=== PATIENT | female | born 1945 | race Caucasian/White ===

== ENCOUNTER → 2017-03-13 | Outpatient (REF) | payer MEDICARE ==
[~2017-03-13] MED LIST: ALBU17IN2 INH; AMLO5TAB2 PO; AUGM875T27 PO; AVEL1TAB PO; CALCCHW12 OR; COZA50TA PO; IMOD2TAB16 PO; Imodium PO; LASI40TA; LISI20TA5; LOSA50TA20 PO; MEGA40SU PO; NORV5TAB PO; PRED20TAB PO; PROA1AER IN; PROA1AER INH; TYLE325T5 PO; TYLE650T30 PO; TYLENOL OTC; VICO5TAB; [UNRECOGNIZED DRUG - REMARK] INH; advair diskus INH; immodium PO; robitussin ac PO
[2017-03-13 12:51] LABS: BASO % 0.9 % (0.0-1.0); EOS # 0.4 K/mm3 (0.0-0.50); EOS % 6.4 % (0.0-3.0); LARGE UNSTAINED CELL # 0.1 K/mm3 (0.0-0.4); LARGE UNSTAINED CELL % 2.2 % (0.0-4.0); LYMPH # 1.6 K/mm3 (1.5-4.5); LYMPH % 23.9 % (24.0-44.0); MEAN CORPUSCULAR HEMOGLOBIN 29.1 pg (27.0-33.0); MEAN CORPUSCULAR HGB CONC 31.2 g/dl (32.0-36.5); MEAN CORPUSCULAR VOLUME 93.4 fl (80.0-96.0); MONO # 0.4 K/mm3 (0.0-0.8); MONO % 6.9 % (0.0-5.0); NEUTROPHILS # 3.7 K/mm3 (1.8-7.7); NEUTROPHILS % 59.8 % (36.0-66.0); PLATELET COUNT, AUTOMATED 237 k/mm3 (150-450); RED CELL DISTRIBUTION WIDTH 15.2 % (11.5-14.5); WHITE BLOOD COUNT 6.2 K/mm3 (4.0-10.0)
[2017-03-13 13:14] LABS: ALBUMIN 3.5 GM/DL (3.2-5.2); ALBUMIN/GLOBULIN RATIO 1.09 (1.00-1.93); ALKALINE PHOSPHATASE 90 U/L (45-117); ALT/SGPT 13 U/L (12-78); ANION GAP 8 MEQ/L (8-16); AST/SGOT 19 U/L (15-37); BILIRUBIN,TOTAL 0.5 MG/DL (0.2-1.0); BLOOD UREA NITROGEN 24 MG/DL (7-18); CALCIUM LEVEL 8.8 MG/DL (8.8-10.2); CARBON DIOXIDE LEVEL 28 MEQ/L (21-32); CHLORIDE LEVEL 102 MEQ/L (98-107); GLOMERULAR FILTRATION RATE > 60.0 (>39); GLUCOSE, FASTING 88 MG/DL (83-110); MAGNESIUM LEVEL 2.1 MG/DL (1.8-2.4); PHOSPHORUS LEVEL 3.9 MG/DL (2.5-4.9); POTASSIUM SERUM 4.6 MEQ/L (3.5-5.1); SODIUM LEVEL 138 MEQ/L (136-145); TOTAL PROTEIN 6.7 GM/DL (6.4-8.2)
== END ==
LOC: M SFHCPLAZ 08:54
PROVIDERS: ATTEND Nurse Practitioner Adult Health
DX: C18.9 Malignant neoplasm of colon, unspecified (principal); E55.9 Vitamin D deficiency, unspecified
CPT/HCPCS: 36415; 80053; 82306; 83735; 84100; 85025; G0463

== ENCOUNTER → 2017-05-01 | Outpatient (REF) | payer MEDICARE ==
[~2017-05-01] MED LIST changes: +ALEV220T26 PO; -AUGM875T27 PO; +AUGM875T28 PO; -AVEL1TAB PO; +AVEL1TAB3 PO; +LOMO2.5T PO; +METO1TAB32 PO; -PROA1AER IN; -PROA1AER INH; +PROAAER10 IN; +PROAAER10 INH; +REGORAFENIB PO; +STIV40TA PO; +TYLE325C PO
[2017-05-01 17:17] LABS: BASO % 0.7 % (0.0-1.0); EOS # 0.3 K/mm3 (0.0-0.50); EOS % 5.4 % (0.0-3.0); LARGE UNSTAINED CELL # 0.2 K/mm3 (0.0-0.4); LARGE UNSTAINED CELL % 2.7 % (0.0-4.0); LYMPH # 1.6 K/mm3 (1.5-4.5); LYMPH % 27.3 % (24.0-44.0); MEAN CORPUSCULAR HEMOGLOBIN 30.4 pg (27.0-33.0); MEAN CORPUSCULAR HGB CONC 33.1 g/dl (32.0-36.5); MEAN CORPUSCULAR VOLUME 91.7 fl (80.0-96.0); MONO # 0.4 K/mm3 (0.0-0.8); MONO % 6.3 % (0.0-5.0); NEUTROPHILS # 3.4 K/mm3 (1.8-7.7); NEUTROPHILS % 57.6 % (36.0-66.0); PLATELET COUNT, AUTOMATED 221 k/mm3 (150-450); RED CELL DISTRIBUTION WIDTH 14.2 % (11.5-14.5); WHITE BLOOD COUNT 5.9 K/mm3 (4.0-10.0)
[2017-05-01 18:04] LABS: ALBUMIN 3.9 GM/DL (3.2-5.2); ALBUMIN/GLOBULIN RATIO 1.39 (1.00-1.93); ALKALINE PHOSPHATASE 112 U/L (45-117); ALT/SGPT 14 U/L (12-78); ANION GAP 6 MEQ/L (8-16); AST/SGOT 20 U/L (15-37); BILIRUBIN,TOTAL 0.9 MG/DL (0.2-1.0); BLOOD UREA NITROGEN 19 MG/DL (7-18); CALCIUM LEVEL 8.2 MG/DL (8.8-10.2); CARBON DIOXIDE LEVEL 28 MEQ/L (21-32); CHLORIDE LEVEL 104 MEQ/L (98-107); CREATININE FOR GFR 0.67 MG/DL (0.55-1.02); GLOMERULAR FILTRATION RATE > 60.0 (>39); GLUCOSE, FASTING 70 MG/DL (83-110); POTASSIUM SERUM 4.8 MEQ/L (3.5-5.1); SODIUM LEVEL 138 MEQ/L (136-145); TOTAL PROTEIN 6.7 GM/DL (6.4-8.2)
[2017-05-04 09:23] LABS: CARCINOEMBRYONIC ANTIGEN 17.5 NG/ML (<2.5)
== END ==
LOC: M LAB REF 16:31
PROVIDERS: ATTEND Internal Medicine Hematology & Oncology
DX: C18.9 Malignant neoplasm of colon, unspecified (principal); C78.00 Secondary malignant neoplasm of unspecified lung; R19.7 Diarrhea, unspecified; E86.0 Dehydration; E55.9 Vitamin D deficiency, unspecified

== ENCOUNTER → 2017-05-08 | Outpatient (REF) | payer MEDICARE ==
[2017-05-08 20:58] LABS: BASO % 0.8 % (0.0-1.0); EOS # 0.2 K/mm3 (0.0-0.50); EOS % 4.3 % (0.0-3.0); LARGE UNSTAINED CELL # 0.1 K/mm3 (0.0-0.4); LARGE UNSTAINED CELL % 1.4 % (0.0-4.0); LYMPH # 1.8 K/mm3 (1.5-4.5); LYMPH % 32.6 % (24.0-44.0); MEAN CORPUSCULAR HEMOGLOBIN 30.7 pg (27.0-33.0); MEAN CORPUSCULAR HGB CONC 33.6 g/dl (32.0-36.5); MEAN CORPUSCULAR VOLUME 91.3 fl (80.0-96.0); MONO # 0.4 K/mm3 (0.0-0.8); MONO % 6.7 % (0.0-5.0); NEUTROPHILS # 2.8 K/mm3 (1.8-7.7); NEUTROPHILS % 54.1 % (36.0-66.0); PLATELET COUNT, AUTOMATED 190 k/mm3 (150-450); RED CELL DISTRIBUTION WIDTH 14.5 % (11.5-14.5); WHITE BLOOD COUNT 5.2 K/mm3 (4.0-10.0)
== END ==
LOC: M LAB REF 19:08
PROVIDERS: ATTEND Internal Medicine Hematology & Oncology
DX: R00.2 Palpitations (principal)

== ENCOUNTER → 2017-05-15 | Outpatient (REF) | payer MEDICARE ==
[~2017-05-15] MED LIST changes: -ALEV220T26 PO; +AUGM875T27 PO; -AUGM875T28 PO; +AVEL1TAB PO; -AVEL1TAB3 PO; -LOMO2.5T PO; -METO1TAB32 PO; +PROA1AER IN; +PROA1AER INH; -PROAAER10 IN; -PROAAER10 INH; -REGORAFENIB PO; -STIV40TA PO; -TYLE325C PO
[2017-05-15 19:47] LABS: BASO # 0.1 K/mm3 (0.0-0.2); BASO % 1.1 % (0.0-1.0); EOS # 0.3 K/mm3 (0.0-0.50); EOS % 5.8 % (0.0-3.0); LARGE UNSTAINED CELL # 0.1 K/mm3 (0.0-0.4); LARGE UNSTAINED CELL % 1.8 % (0.0-4.0); LYMPH # 1.6 K/mm3 (1.5-4.5); LYMPH % 31.2 % (24.0-44.0); MEAN CORPUSCULAR HEMOGLOBIN 30.2 pg (27.0-33.0); MEAN CORPUSCULAR HGB CONC 33.1 g/dl (32.0-36.5); MEAN CORPUSCULAR VOLUME 91.3 fl (80.0-96.0); MONO # 0.4 K/mm3 (0.0-0.8); NEUTROPHILS # 2.7 K/mm3 (1.8-7.7); NEUTROPHILS % 53.1 % (36.0-66.0); PLATELET COUNT, AUTOMATED 166 k/mm3 (150-450); RED CELL DISTRIBUTION WIDTH 14.7 % (11.5-14.5)
== END ==
LOC: M LABDRWCV 09:54
PROVIDERS: ATTEND Internal Medicine Hematology & Oncology
DX: C18.9 Malignant neoplasm of colon, unspecified (principal)

== ENCOUNTER 2017-07-07 11:55 | Inpatient (IN) | payer MEDICARE ==
[~2017-07-07] VITALS: Ht 165.1 cm; Wt 60.2 kg
[~2017-07-07 11:55] MED LIST changes: -AUGM875T27 PO; +AUGM875T28 PO; -AVEL1TAB PO; +AVEL1TAB3 PO; -PROA1AER IN; -PROA1AER INH; +PROAAER10 IN; +PROAAER10 INH
[2017-07-07] MEDS ORDERED: REGORAFENIB PO (12:15)
[2017-07-07] MEDS ORDERED: NS 1,000 ML IV ONE (13:00)
[2017-07-07] MEDS ORDERED: ONDANSETRON 4MG/2ML VIAL (J2405) IV ONE (13:00)
[2017-07-07 13:21] LABS: MEAN CORPUSCULAR HEMOGLOBIN 29.5 pg (27.0-33.0); MEAN CORPUSCULAR HGB CONC 32.9 g/dl (32.0-36.5); MEAN CORPUSCULAR VOLUME 89.5 fl (80.0-96.0); RED CELL DISTRIBUTION WIDTH 14.8 % (11.5-14.5); WHITE BLOOD COUNT 14.4 K/mm3 (4.0-10.0)
[2017-07-07 13:39] LABS: ANION GAP 11 MEQ/L (8-16); BLOOD UREA NITROGEN 31 MG/DL (7-18); CALCIUM LEVEL 8.5 MG/DL (8.8-10.2); CARBON DIOXIDE LEVEL 26 MEQ/L (21-32); CHLORIDE LEVEL 94 MEQ/L (98-107); GLOMERULAR FILTRATION RATE 23.4 (>39); GLUCOSE, FASTING 48 MG/DL (83-110); POTASSIUM SERUM 4.1 MEQ/L (3.5-5.1); SODIUM LEVEL 131 MEQ/L (136-145)
[2017-07-07 13:59] LABS: BASOPHILS 1 % (0-4); EOSINOPHILS 1 % (0-5)
[2017-07-07 14:00] LABS: ANISOCYTOSIS 1+
--- NOTE | 2017-07-07 14:44 | REP ---
Portable chest x-ray: Single AP view. History: Dizziness. Evaluate for CHF. Comparison study 02/28/2016. The patient is status post left upper lobectomy. Today's chest x-ray demonstrates a new area of and fairly dense consolidation in the left apex. This would be the superior segment of the left upper lobe. This is compatible with pneumonia or conceivably recurrent mass lesion. There is a new nodular opacity in the right inferior perihilar region measuring 2.2 cm in greatest diameter. Another nodule density 1.5 cm in diameter is visible in the right upper lung zone. These are new findings. The pleural angles are sharp. Heart is not enlarged. A right-sided Sbkqyi-Z-Zonq catheter is seen. Impression: 1. Large new dense area of consolidation in the left apex in the superior segment of the remaining left lower lobe. 2. New pulmonary nodules in the right lung. Question recurrent malignancy and pneumonia. Signed by Frantz Spain MD 07/07/2017 02:50 P
[2017-07-07] MEDS ORDERED: DEXTROSE 50% 50 ML SYRINGE IV STA (14:56)
[2017-07-07] MEDS ORDERED: AZITHROMYCIN INJ 500 MG, VIAL MATE ADAPTER 1 EACH in D5W 250 ML IV ONE (15:15)
[2017-07-07] MEDS ORDERED: cefTRIAXone SOD 1 GM in D5W MINI-BAG PLUS 50 ML IV ONE (15:15)
[2017-07-07] MEDS ORDERED: NS 1,000 ML IV SCH (15:18)
[2017-07-07] MEDS ORDERED: EMLA CREAM 5GM (LIDOCAINE/PRILOCAINE) TOP ONE (15:45)
[2017-07-07] MEDS ORDERED: AMLO5TAB2 PO (16:02)
[2017-07-07] MEDS ORDERED: IMOD2TAB16 PO (16:02)
[2017-07-07] MEDS ORDERED: ALEV220T26 PO (16:02)
[2017-07-07] MEDS ORDERED: PROAAER10 INH (16:02)
[2017-07-07] MEDS ORDERED: STIV40TA PO (16:02)
[2017-07-07] MEDS ORDERED: LOMO2.5T PO (16:02)
[2017-07-07] MEDS ORDERED: BISACODYL 5 MG TAB PO PRN (16:30)
[2017-07-07] MEDS ORDERED: ONDANSETRON 4 MG TAB (S0181) PO PRN (16:30)
[2017-07-07] MEDS ORDERED: IPRATROPIUM 0.5MG/ALBUTEROL 2.5MG INH SOL UD 3ML (DUONEB)(J7620) NEB PRN (16:30)
[2017-07-07] MEDS ORDERED: LOPERAMIDE 2 MG CAP PO PRN (16:45)
[2017-07-07] MEDS ORDERED: ALBUTEROL 90 MCG/ACT 8GM HFA INHALER INH PRN (16:45)
[2017-07-07] MEDS ORDERED: SODIUM CHLORIDE 0.9% 1000 ML IV ONE (17:15)
[2017-07-07] MEDS: D5W/0.9% SODIUM CHLORIDE 1,000 ML IV SCH (17:30)
--- NOTE | 2017-07-07 20:21 | HPEPDOC ---
General Date of Admission Primary Care Physician: Hortensia Yadav R.N., Minh Attending Physician: YAN YEUNG MD Chief Complaint The patient is a 72-year-old female admitted with a reason for visit of General Weakness. Source: Patient, Family History of Present Illness CHIEF COMPLAINT: dizziness HISTORY OF PRESENT ILLNESS: Ms. Meek is a 72 yo F with a PMH of metastatic colon cancer with L lower lobectomy (as stated per patient and patient's family), COPD not on home O2, hypertensive cardiovascular disease, anorexia secondary to poor oral intake due to colon cancer, community acquired pneumonia in February 2014, who presented to the [facility] ED today for a 4 day hx of progressively worsening dizziness, weakness, anorexia, and decreased mobility. States since Sunday, she has been feeling bad, has not been eating, has been slightly dizzy, and spitting up food after 1 - 1/2 hours later initially, but now has been spitting up food right after eating. She could not walk today. Is not eating or drinking. Has only eaten a couple of crackers and 2 crackers yesterday. Today, she has been c/o head spinning dizziness and not vocalizing properly. She also states she was not able to move up out of her bed today. Daughter states that yesterday she was able to at least sit up in a chair. Daughter also states that patient has not been able to talk properly due to being so dehydrated and having nothing in her mouth. Daughter also states that patient was having hot and cold sweating all the time today and hallucinating that there was mold on the wall that wasn't there. Also is usually weak in her R leg due to bad arthritis in that leg. Also admits to bad R hip and she cannot have hip replacement in that hip due to needing to be off of chemotherapy for 10 days prior to surgery. Already has had L hip replacement. Has generalized weakness but not unilateral weakness. Denies blurred vision, headache, nausea, cough, dysuria, hematuria, urinary frequency, chest pain, abdominal pain, bruising/bleeding anywhere. Admits to SOB when tries to get up and move too fast. Denies falling or hitting head. Yesterday, had controlled movements with immodium: loose and shaped bowel movement that was very short. Has not moved her bowels today. Of note, patient states she began her chemotherapy pill (stivarga) cycle this month on June 21 and takes 3 pills a day. She took 3 pills last night. PAST MEDICAL HISTORY: Metastatic colon cancer with L lower lobectomy (as stated per patient and patient's family)--though Dr. Tori Diehl's H&P from 2015 states TY lobectomy Colon Cancer was diagnosed 2008 COPD not on home O2 Hypertensive cardiovascular disease Anorexia secondary to poor oral intake due to colon cancer Community acquired pneumonia in February 2014 Hx of hypokalemia Leukopenia secondary to chemotherapy Hx of thrombocytopenia Arthritis of the knees and fingers Hx of Dehydration Hx of Diverticulosis Occasional hx of Anemia Dry Patches on Bottom and Palm of Hand PAST SURGICAL HISTORY/HOSPITALIZATIONS: L Hip Replacement in 2005 L "lower" lobectomy 08/19/2012 Hx of Wobbuw-O-Podd Insertion x 2: now, has 2nd port in Right Colectomy 02/26/2009 Appendectomy at age 9 Hx of colonoscopy in 2010: found to have tubular adenoma Hospitalized January 2017 at [facility] in [place] for Dehydration MEDICATIONS: Please see below. ALLERGIES: NKDA SOCIAL HISTORY: Smoked 1 1/2 packs x 50 years: quit 2008 EtOH use: was social drinker and quit 2008 No illicit drug use Has 1 cat which is immunized Lives at home with her Has 2 children: 1 son and 1 daughter Healthcare proxy: daughter Nidhi Does not have MOLST FAMILY HISTORY: Mother: from peritonitis Father: October 1999 of CHF, had tachycardia hx Maternal Grandfather: had unknown cancer Oldest Sister: "bad back" Older sister: thyroidectomy, HTN Youngest sister: unknown medical hx CODE STATUS: FULL CODE STATUS Would like her daughter Nidhi who is her healthcare proxy to make decisions for her when she will not be able to make decisions for herself REVIEW OF SYSTEMS: All ROS are negative except for that which is stated above in HPI. PHYSICAL EXAMINATION: Please see VS and PE below. Afebrile, (+) Orthostatics, satting 90s on room air LABORATORY DATA: Remarkable for WBC 14.4, Hgb 11, Hct 33.3, MCH 29.5, RBC 3.72, RDW 14.8, platelets 215, neutrophils 38, lymphocytes 2, 1+ anisocytosis, sodium 131. BUN 31 and Cr 2.20, GFR 23.4, fasting glucose 48, CK-MB 6.3, troponin I <0.02, CRP 40.60. MICROBIOLOGY: Blood cx x 2 pending Sputum cx pending ELECTROCARDIOGRAM: Sinus rhythm with frequent supraventricular premature complexes, ventricular Rate: 67 bpm, IL interval 165 ms, QRS duration 87 ms, QTc of 428 ms. Prior EKG from 11/29/2014 showed sinus rhythm, Nonspecific ST-T wave abnormality with rate 67, IL interval 133, QRS duration of 80, and QTc of 414. RADIOLOGY: CXR Single AP view: large new dense area of consolidation in the L apex in the superior segment of the remaining LLL. New pulmonary nodules in the R lung. Question recurrent malignancy and pneumonia. ASSESSMENT: Ms. Meek is a 72 yo F with a PMH of metastatic colon cancer with L lower lobectomy (as stated per patient and patient's family), COPD not on home O2, hypertensive cardiovascular disease, anorexia secondary to poor oral intake due to colon cancer, community acquired pneumonia in February 2014, who presented to the [facility] ED today for a 4 day hx of progressively worsening dizziness, weakness, anorexia, and decreased mobility. She was found to have leukocytosis, hypoglycemia, acute kidney injury, and a large new dense area of consolidation in the L apex in the superior segment of the remaining LLL. Her orthostatic vital signs were positive. She is being admitted for Community Acquired Pneumonia, leukocytosis, acute kidney injury, hypoglycemia, anorexia, weakness, and decreased mobility, and orthostatic hypotension. PLAN: Community Acquired Pneumonia: have begun rocephin and azithromycin. Ordered O2 therapy orders to keep O2 saturations above 88%. Ordered incentive spirometer. Tylenol PRN pain/fever. Sputum cx pending. CT chest without contrast ordered. Influenza A&B rapid antigen ordered. Leukocytosis: on azithromycin and rocephin. Blood cx x 2 pending and sputum cx pending. Lactic acid pending. MRSA screen pending. May want to consider changing antibiotics if patient not responding well. Patient afebrile at this time. Will hold patient's chemotherapy drug stivarga for now due to infection and immunocompromising patient more to other infections. Will monitor CBCs daily. Acute Kidney Injury: D5NS @ 100 mLs/hr. Urine Cr and Na, serum osmolality, and urine osmolality ordered to calculate FeNa for evaluating etiology of CARINA. Suspect most likely secondary to anorexia and dehydration. Will monitor daily BMPs for renal function. Orthostatic Hypotension: D5NS @ 100 mLs/hr. Monitor vitals q4h. Hypoglycemia: D5NS @ 100 mLs/hr. On soft diet. Aspiration precautions. Have ordered q6h fingersticks. Placed nursing order to call physician with fingerstick result for any need for adjustments with therapy. Will monitor BMPs daily. Chronic Medical Problem List: Metastatic colon cancer with L lower lobectomy (as stated per patient and patient's family)--though Dr. Tori Diehl's H&P from 2015 states TY lobectomy Colon Cancer was diagnosed 2009 COPD not on home O2 Hypertensive cardiovascular disease Anorexia secondary to poor oral intake due to colon cancer Community acquired pneumonia in February 2014 Hx of hypokalemia Leukopenia secondary to chemotherapy Hx of thrombocytopenia Arthritis of the knees and fingers Hx of Dehydration Hx of Diverticulosis Occasional hx of Anemia Dry Patches on Bottom and Palm of Hand Continue home medications for the conditions listed that apply above. Have held loperamide, lomotil, and stivarga at this time. DVT ppx: SC heparin FULL CODE STATUS Immunizations as per protocol I have both independently examined this patient as well as reviewed the dictated note. I have discussed in detail with the resident the findings and plan of treatment as documented in the residents note. I will continue to follow the patient and offer further guidance to the patients care as necessary during this hospital stay. Home Medications Scheduled (Stivarga) 40 Mg Tab, 120 MG PO DAILY, (Reported) TAKE FOR 3 WEEKS ON, 1 WEEK OFF. HAS ABOUT 1.5 WEEKS LEFT ON. Amlodipine Besylate (Amlodipine Besylate) 5 Mg Tab, 5 MG PO QHS, (Reported) Metoprolol Succinate (Metoprolol Succinate ER) 25 Mg Tab, 25 MG PO DAILY Scheduled PRN (Tylenol) 325 Mg Cap, 325 MG PO Q6HP PRN for PAIN Albuterol Sulfate (Proair Hfa) 108 Mcg/Act Aer, 2 PUFF INH Q4H PRN for SHORTNESS OF BREATH, (Reported) Loperamide Hcl (Imodium A-D) 2 Mg Tab, 2 MG PO PRN PRN for DIARRHEA, (Reported) Allergies Coded Allergies: No Known Allergies (Verified , 03/05/06) Physical Examination General Exam: Positive: Alert, Cooperative, No Acute Distress, Other (Fragile and weak elderly female answering questions appropriately.) Eye Exam: Positive: Conjunctiva & lids normal, EOMI, Sclera icteric ENT Exam: Positive: Atraumatic, Tongue Midline, Other ENT (dry mucous membranes.), Negative: Pharyngeal Edema Neck Exam: Positive: Supple, Negative: JVD, thyromegaly, Lymphadenopathy Chest Exam: Positive: Wheezing (+end expiratory wheezing throughout middle and lower lung sam bilaterally and mild wheezing in upper lung sam), Negative: Rales Heart Exam: Positive: Rate Normal, Normal S1, Normal S2, Other (with occasional PVCs), Negative: Murmurs Telemetry: Positive: Sinus, PVCs Abdomen Exam: Positive: BS Hypoactive, Soft, Negative: Tenderness, Hepatospenomegaly Extremity Exam: Positive: Normal pulses, Negative: Clubbing, Cyanosis, Edema Skin Exam: Negative: Rash, Breakdown Neuro Exam: Positive: Normal Speech, Sensation Intact, Other (CN 2-12 intact bilaterally. +4/5 RLE muscle strength with extension against resistance) Psych Exam: Positive: Mental status NL, Memory Intact, Oriented x 3, Other ( flat affect) Vital Signs Vital Signs Date Time Temp Pulse Resp B/P (MAP) Pulse Ox O2 Delivery O2 Flow Rate FiO2 07/07/17 15:17 97.2 92 20 117/56 (76) 95 Room Air Laboratory Data Labs 24H Laboratory Tests 2 07/07/17 13:07: Neutrophils 88H, Lymphocytes (Manual) 2L, Monocytes (Manual) 8, Eosinophils ( Manual) 1, Basophils (Manual) 1, Platelet Estimate NORMAL, Anisocytosis 1+, Anion Gap 11, Glomerular Filtration Rate 23.4L, Blood Urea Nitrogen 31H, Creatinine 2.20H, Sodium Level 131L, Potassium Level 4.1, Chloride Level 94L, Carbon Dioxide Level 26, Calcium Level 8.5L, Total Creatine Kinase 144, Creatine Kinase MB 6.3H, Creatine Kinase MB Relative Index 4.37H, Troponin I < 0.02 CBC/BMP Laboratory Tests 07/07/17 13:07 Calcium Level 8.5 L, Total Creatine Kinase 144 Plan / VTE VTE Prophylaxis Ordered?: Yes (SC heparin) LETY COMER OGME-1 Jul 07, 2017 15:29 YAN YEUNG MD Jul 23, 2017 15:15
[2017-07-07] MEDS ORDERED: amLODIPine 5 MG TAB PO SCH (21:00)
[2017-07-07 21:05] VITALS: BP 116/53
[2017-07-07 21:29] LABS: ALBUMIN 2.5 GM/DL (3.2-5.2); ALBUMIN/GLOBULIN RATIO 0.69 (1.00-1.93); BILIRUBIN,TOTAL 1.6 MG/DL (0.2-1.0); MAGNESIUM LEVEL 2.4 MG/DL (1.8-2.4); TOTAL PROTEIN 6.1 GM/DL (6.4-8.2)
[2017-07-07] MEDS: PIPERACILLIN/TAZOBACTAM SOD 4.5 GM in D5W MINI-BAG PLUS 50 ML IV SCH (21:39)
[2017-07-07] MEDS: HEPARIN SOD (PORCINE) 5000 UNITS/ML VIAL SC SCH (21:45)
[2017-07-08] VITALS (9 sets, daily range): BP systolic 88–112; BP diastolic 51–62
[2017-07-08] MEDS: PIPERACILLIN/TAZOBACTAM SOD 4.5 GM in D5W MINI-BAG PLUS 50 ML IV SCH ×3 (04:17→21:24)
[2017-07-08 05:13] LABS: BASO % 0.2 % (0.0-1.0); EOS # 0.4 K/mm3 (0.0-0.50); EOS % 3.6 % (0.0-3.0); LARGE UNSTAINED CELL # 0.1 K/mm3 (0.0-0.4); LARGE UNSTAINED CELL % 1.3 % (0.0-4.0); LYMPH # 0.5 K/mm3 (1.5-4.5); LYMPH % 4.2 % (24.0-44.0); MEAN CORPUSCULAR HEMOGLOBIN 30.4 pg (27.0-33.0); MEAN CORPUSCULAR HGB CONC 33.6 g/dl (32.0-36.5); MEAN CORPUSCULAR VOLUME 90.3 fl (80.0-96.0); MONO # 0.4 K/mm3 (0.0-0.8); NEUTROPHILS # 9.6 K/mm3 (1.8-7.7); NEUTROPHILS % 86.7 % (36.0-66.0); PLATELET COUNT, AUTOMATED 202 k/mm3 (150-450); RED CELL DISTRIBUTION WIDTH 14.6 % (11.5-14.5)
[2017-07-08] MEDS: HEPARIN SOD (PORCINE) 5000 UNITS/ML VIAL SC SCH ×3 (05:53→21:25)
[2017-07-08 06:32] LABS: ALBUMIN/GLOBULIN RATIO 0.67 (1.00-1.93); BILIRUBIN,TOTAL 0.8 MG/DL (0.2-1.0); CALCIUM LEVEL 7.1 MG/DL (8.8-10.2); CREATININE FOR GFR 1.69 MG/DL (0.55-1.02); GLOMERULAR FILTRATION RATE 31.8 (>39); MAGNESIUM LEVEL 2.2 MG/DL (1.8-2.4); POTASSIUM SERUM 4.1 MEQ/L (3.5-5.1)
[2017-07-08] MEDS: VANCOMYCIN HCL 1,000 MG, VIAL MATE ADAPTER 1 EACH in D5W 250 ML IV SCH ×2 (08:42→21:24)
[2017-07-08] MEDS: D5W/0.9% SODIUM CHLORIDE 1,000 ML IV SCH ×2 (08:42→21:24)
--- NOTE | 2017-07-08 10:44 | PHACANCOPD ---
PHARMACY VANCOMYCIN DOSING Pt Demographics Demographics Patient Age:72 , Weight:58.600 , Gender: female Adjusted Body Weight Date: 07/08/17, Adjusted Body Weight: [na] Kg Events Past 24 Hours Events Past 24 Hours: YES: Change in CrCl, NO: Dialysis, Diuretic Therapy, Fever, Elevation in WBC, Pending Diagnostics , Pending Procedures, Other Vancomycin Vancomycin indication: HCAP Vancomycin Target Ranges: 15-20 mcg/ml Vancomycin Load Y/N: No Load Dose Date Time Vancomycin Load Dose: Date: Time: Vancomycin Dose Date: 07/08/17. Current Vancomycin Dose: [1g IV Q12H @08] Intermittent Dosing?: No Labs Labs Item Value Date Time White Blood Count 14.4 K/mm3 H 07/07/17 1307 White Blood Count 11.0 K/mm3 H 07/08/17 0437 Creatinine 2.20 MG/DL H 07/07/17 1307 Creatinine 1.69 MG/DL H 07/08/17 0437 C-Reactive Protein, Quantitative 40.60 MG/DL H 07/07/17 1307 Micro Microbiology 07/07/17 Blood Culture, Received Pending 07/07/17 Blood Culture, Received Pending 07/08/17 Influenza Virus Type A Antigen - Final, Complete 07/08/17 Influenza Virus Type B Antigen - Final, Complete 07/07/17 MRSA Screen, Received Pending 07/07/17 Gram Stain - Final, Resulted 07/07/17 Sputum Culture, Resulted Pending Creatinine Clearance Date:07/08/17. Creatinine Clearance: [~29 ml/min]. Assessment and Plan Maintaining Current Dose?: Yes Reason for dose change: No Dose Change Pharmacist Note Pharmacist Note Date: 07/08/17. Pharmacist note: pt has been started on vancomycin for HCAP, possible post obstructive pneumonia. Her PMHx is significant for metastatic colon cancer. She does not have a Hx of MRSA and she was last on vancomycin at our facility in Nov 2014. I will resume similar dosing of vancomycin 1g IV q12h. Her SCr is currently elevated but improving, baseline SCr is ~0.7 mg/dl. We will continue to monitor and order a trough as necessary. Oli Larios Pharm.D. Jul 08, 2017 10:44
--- NOTE | 2017-07-08 11:26 | REP ---
CT chest without contrast: History: Pneumonia. Status post lobectomy. Comparison is made with portable chest x-ray from earlier on the same date. Comparison chest CT study is from July 02, 2012. The patient has a history of colon carcinoma and lung carcinoma and is status post left upper lobectomy. CT findings: There are multiple noncalcified pulmonary nodules scattered in the right lower lobe and right upper lobe compatible with hematogenous metastasis. The largest nodule is an irregularly marginated nodule in the right lower lobe, which measures 2.0 cm in greatest diameter. The nodules in the right upper lobe include a 1.2 cm nodule. These are new when compared to the 2012 prior study. The left upper lobe has been removed. In the superior segment of the remaining left lower lobe in the apex of the left chest there is dense consolidation heterogeneous with necrotic areas. There is upward retraction of the left hilus. There is some perihilar fullness with perihilar bronchial narrowing. Some or all of the infiltrate could be a postobstructive. There is some peripheral consolidation extending to the base on the left. There is a nodule in the left lower lobe measuring 8 mm. There are superior mediastinal lymph nodes. The largest of these is in the left superior mediastinum measuring 2.1 cm in greatest diameter. There are calcified bilateral adrenal masses. The left adrenal mass measures 5.1 cm in greatest diameter and the right measures 5.8 cm in greatest diameter. No liver mass lesion is visible. The visualized upper abdominal structures are otherwise unremarkable. Bone window settings show diffuse osteoporosis. No bony destructive lesion is appreciated. Impression: Metastatic pattern of pulmonary nodules bilaterally. The left hilar fullness and possibly postobstructive infiltrate in the left upper lung zone are suggestive of recurrent malignancy. Large calcified bilateral adrenal masses are seen consistent with metastasis. The calcified pattern in the adrenal metastases is atypical for lung primary. Some colon metastases may be calcific. Signed by Frantz Spain MD 07/08/2017 01:08 P
--- NOTE | 2017-07-08 15:34 | IPNPDOC ---
Text Note Date of Service The patient was seen on 07/08/17. NOTE Subjective: Patient is a 72 year old female with a PMHx of Colon CA (Dx 2008, Stage IV, s/p Surgery, on chemotherapy), L upper lobectomy 2/2 metastasis, COPD (not O2 dependent), HTN, Anemia, Cachexia, and Arthritis who presented to the ER with dizziness, SOB, cough and fever worsening over 3-4 days. She was found to have a fever in the ER and imaging revealed a left upper lobe infiltrate consistent with pneumonia. Patient was admitted to PCU under hospitalist service for HCAP. Patient was seen and examined at the bedside. Her family was present at bedside. She notes weakness some SOB, mild cough. No chest pain or palpitations. Objective: Vitals (See below) General: Lying in bed, no acute distress, comfortable, AAOx3 HEENT: NC, AT CVS: RRR, +S1S2 Lungs: Poor inspiratory effort, + crackles / decreased lung sounds at left upper lung field Abdomen: Soft, ND, NT, +BSx4 Extremities: - Edema, - Calf tenderness Assessment and plan: Dyspnea and fever - likely 2/2 pneumonia - likely 2/2 post-obstructive pneumonia with underlying malignancy (metastatic lesion) - Presented with SOB, cough, fevers - Physical with decreased lung sounds / crackles - c/w supplemental oxygen via nasal cannula - Blood pressure has been on the lower side of normal - Leukocytosis improving; No lactic acidosis - Blood cultures 07/07: currently negative - CT Chest 07/08: Metastatic pattern of pulmonary nodules b/l, left hilar fullness and possibly post-obstructive infiltrate in L upper lung zone ( recurrent malignancy) - c/w IV fluid hydration with D5 and NS - Started Vancomycin (Day #1), c/w Zosyn (Day #2) Dizziness - likely 2/2 orthostatic hypotension - Repeat orthostatic vital signs negative - c/w IV fluid hydration Acute kidney injury - likely 2/2 pre-renal etiology, possibly intra-renal etiology - No history of CKD - Cr on admission of 2.20; has been trending down - c/w IV fluid hydration Hypoglycemia - likely 2/2 poor oral intake - c/w glucose checks - c/w Dextrose based fluids - Encourage oral intake - c/w Aspiration precautions Colon CA - Dx 2008 - Stage IV - s/p Surgery - Currently on chemotherapy; will hold medications at this time - Follows with Dr. León in [place]; case discussed with him - Advised that there has been a recent CT chest that was consistent with pulmonary nodules bilaterally, however indicated that post-obstructive pneumonia 2/2 to lesion in left upper lung field is likely new L upper lobectomy 2/2 metastasis COPD, Chronic - No evidence of exacerbation at this time - Not O2 dependent - c/w Duoneb PRN HTN - BP on lower limits of normal - will discontinue amlodipine for now Normocytic anemia - likely 2/2 chemotherapy - no evidence of bleeding - will follow Cachexia - Encourage PO entake - c/w Dextrose based fluids Arthritis - c/w Tylenol PRN DVT prophylaxis - c/w Heparin VS,Fishbone, I+O VS, Fishbone, I+O Laboratory Tests 07/08/17 04:37 Red Blood Count 3.45 L, Mean Corpuscular Volume 90.3, Mean Corpuscular Hemoglobin 30.4, Mean Corpuscular Hemoglobin Concent 33.6, Red Cell Distribution Width 14.6 H, Neutrophils (%) (Auto) 86.7 H, Lymphocytes (%) (Auto ) 4.2 L, Monocytes (%) (Auto) 4.0, Eosinophils (%) (Auto) 3.6 H, Basophils (%) ( Auto) 0.2, Neutrophils # (Auto) 9.6 H, Lymphocytes # (Auto) 0.5 L, Monocytes # ( Auto) 0.4, Eosinophils # (Auto) 0.4, Basophils # (Auto) 0.0, Calcium Level 7.1 # L, Aspartate Amino Transf (AST/SGOT) 27, Alanine Aminotransferase (ALT/SGPT) 8 L , Alkaline Phosphatase 106, Total Bilirubin 0.8, Total Protein 5.0 L, Albumin 2.0 L Vital Signs Date Time Temp Pulse Resp B/P (MAP) Pulse Ox O2 Delivery O2 Flow Rate FiO2 07/08/17 14:12 112/56 (74) 07/08/17 12:00 97.8 68 18 99 Nasal Cannula 2.0 I&O- Last 24 Hours up to 6 AM 07/08/17 06:00 Intake Total 1300 ml Output Total 100 ml Balance 1200 ml KARON PRINGLE MD Jul 08, 2017 15:34
[2017-07-08] MEDS ORDERED: cefTRIAXone SOD 2 GM in D5W MINI-BAG PLUS 50 ML IV SCH (17:00)
[2017-07-08] MEDS ORDERED: AZITHROMYCIN INJ 500 MG, VIAL MATE ADAPTER 1 EACH in D5W 250 ML IV SCH (18:00)
--- NOTE | 2017-07-08 21:29 | ECGEPIP ---
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
[2017-07-09] MEDS ORDERED: METOPROLOL 5 MG/5 ML VIAL IV SCH
[2017-07-09] MEDS ORDERED: METOPROLOL 5 MG/5 ML VIAL IV ONE (02:30)
[2017-07-09 03:55] VITALS: BP 97/59
[2017-07-09 04:55] LABS: BASO % 0.2 % (0.0-1.0); EOS # 0.5 K/mm3 (0.0-0.50); EOS % 4.3 % (0.0-3.0); LARGE UNSTAINED CELL # 0.2 K/mm3 (0.0-0.4); LARGE UNSTAINED CELL % 1.5 % (0.0-4.0); LYMPH # 0.7 K/mm3 (1.5-4.5); LYMPH % 4.5 % (24.0-44.0); MEAN CORPUSCULAR HEMOGLOBIN 29.6 pg (27.0-33.0); MEAN CORPUSCULAR HGB CONC 32.6 g/dl (32.0-36.5); MONO # 0.7 K/mm3 (0.0-0.8); MONO % 5.7 % (0.0-5.0); NEUTROPHILS # 9.9 K/mm3 (1.8-7.7); NEUTROPHILS % 83.8 % (36.0-66.0); PLATELET COUNT, AUTOMATED 168 k/mm3 (150-450); RED CELL DISTRIBUTION WIDTH 14.9 % (11.5-14.5); WHITE BLOOD COUNT 11.8 K/mm3 (4.0-10.0)
[2017-07-09] MEDS: PIPERACILLIN/TAZOBACTAM SOD 4.5 GM in D5W MINI-BAG PLUS 50 ML IV SCH ×3 (05:28→22:05)
[2017-07-09] MEDS: HEPARIN SOD (PORCINE) 5000 UNITS/ML VIAL SC SCH ×3 (05:28→22:06)
[2017-07-09 05:29] LABS: ALBUMIN 1.8 GM/DL (3.2-5.2); ALBUMIN/GLOBULIN RATIO 0.6 (1.00-1.93); BILIRUBIN,TOTAL 0.7 MG/DL (0.2-1.0); CALCIUM LEVEL 7.3 MG/DL (8.8-10.2); CREATININE FOR GFR 1.4 MG/DL (0.55-1.02); GLOMERULAR FILTRATION RATE 39.5 (>39); MAGNESIUM LEVEL 1.9 MG/DL (1.8-2.4); POTASSIUM SERUM 3.7 MEQ/L (3.5-5.1); TOTAL PROTEIN 4.8 GM/DL (6.4-8.2)
[2017-07-09] MEDS: D5W/0.9% SODIUM CHLORIDE 1,000 ML IV SCH ×3 (06:37→13:15)
[2017-07-09 08:00] VITALS: BP 96/52
--- NOTE | 2017-07-09 08:06 | ECGEPIP ---
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
[2017-07-09] MEDS: VANCOMYCIN HCL 1,000 MG, VIAL MATE ADAPTER 1 EACH in D5W 250 ML IV SCH ×2 (08:26→20:27)
[2017-07-09] MEDS ORDERED: MAG SULF 1GM/100ML (MAG RUN) 1 GM in APPROPRIATE DILUENT 1 EA IV ONE (09:30)
[2017-07-09 10:46] LABS: PHOSPHORUS LEVEL 2.1 MG/DL (2.5-4.9)
[2017-07-09 12:00] VITALS: BP 100/60
[2017-07-09] MEDS ORDERED: SODIUM PHOSPHATE INJ 30 MMOL in D5W 500 ML IV ONE (14:00)
--- NOTE | 2017-07-09 15:14 | IPNPDOC ---
Text Note Date of Service The patient was seen on 07/09/17. NOTE Subjective: Patient is a 72 year old female with a PMHx of Colon CA (Dx 2009, Stage IV, s/p Surgery, on chemotherapy), L upper lobectomy 2/2 metastasis, COPD (not O2 dependent), HTN, Anemia, Cachexia, and Arthritis who presented to the ER with dizziness, SOB, cough and fever worsening over 3-4 days. She was found to have a fever in the ER and imaging revealed a left upper lobe infiltrate consistent with pneumonia. Patient was admitted to PCU under hospitalist service for HCAP. Patient was seen and examined at the bedside. She notes that she is feeling tired, her breathing has not changed significant. She notes her cough has been slightly worse. No reported fevers. Objective: Vitals (See below) General: Lying in bed, no acute distress, comfortable, AAOx3 HEENT: NC, AT CVS: RRR, +S1S2 Lungs: Poor inspiratory effort, + crackles / decreased lung sounds at left upper lung field Abdomen: Soft, ND, NT, +BSx4 Extremities: - Edema, - Calf tenderness Assessment and plan: Dyspnea and fever - likely 2/2 pneumonia - likely 2/2 post-obstructive pneumonia with underlying malignancy (metastatic lesion) - Presented with SOB, cough, fevers - Physical with decreased lung sounds / crackles - c/w supplemental oxygen via nasal cannula - Blood pressure has been on the lower side of normal - Leukocytosis improving; No lactic acidosis - Blood cultures 07/07: currently negative - CT Chest 07/08: Metastatic pattern of pulmonary nodules b/l, left hilar fullness and possibly post-obstructive infiltrate in L upper lung zone ( recurrent malignancy) - c/w IV fluid hydration with D5 and NS - c/w Vancomycin (Day #2), c/w Zosyn (Day #3) - Case discussed with Pulmonary (Dr. Phillips); will be on consult - will provide evaluation of possible post-obstructive pneumonia Frequent PVCs and Paroxysmal atrial fibrillation - Patient has not had any complaints while this has happened - Patient was noted to have pauses this morning of 4 seconds - Telemetry noted to have atrial fibrillation and episodes of 13 PVCs - EKG from admission in sinus rhythm with multiple PVCs - Discussed case with Dr. Severino (Cardiology); will be on consult; advised to observe for now and consider beta blockers if BP allows and HR becomes uncontrolled, otherwise Amiodarone may be a feasible option Dizziness - likely 2/2 orthostatic hypotension - Repeat orthostatic vital signs negative - c/w IV fluid hydration Acute kidney injury - likely 2/2 pre-renal etiology, possibly intra-renal etiology - No history of CKD - Cr on admission of 2.20; has been continue to trend down - c/w IV fluid hydration s/p Hyponatremia, mild - likely 2/2 dehydration / poor oral intake - resolved after IV fluid hydration Hypoglycemia - likely 2/2 poor oral intake - c/w glucose checks - c/w Dextrose based fluids - Encourage oral intake - c/w Aspiration precautions Colon CA - Dx 2008 - Stage IV - s/p Surgery - Currently on chemotherapy; will hold medications at this time - Follows with Dr. León in [place]; case discussed with him - Advised that there has been a recent CT chest that was consistent with pulmonary nodules bilaterally, however indicated that post-obstructive pneumonia 2/2 to lesion in left upper lung field is likely new, adrenal gland metastasis bilaterally L upper lobectomy 2/2 metastasis COPD, Chronic - No evidence of exacerbation at this time - Not O2 dependent - c/w Duoneb PRN HTN - BP on lower limits of normal - will discontinue amlodipine for now Normocytic anemia - likely 2/2 chemotherapy - no evidence of bleeding - will follow Cachexia - Encourage PO entake - c/w Dextrose based fluids Arthritis - c/w Tylenol PRN DVT prophylaxis - c/w Heparin VS,Fishbone, I+O VS, Fishbone, I+O Laboratory Tests 07/09/17 04:35 Red Blood Count 3.35 L, Mean Corpuscular Volume 91.0, Mean Corpuscular Hemoglobin 29.6, Mean Corpuscular Hemoglobin Concent 32.6, Red Cell Distribution Width 14.9 H, Neutrophils (%) (Auto) 83.8 H, Lymphocytes (%) (Auto ) 4.5 L, Monocytes (%) (Auto) 5.7 H, Eosinophils (%) (Auto) 4.3 H, Basophils (% ) (Auto) 0.2, Neutrophils # (Auto) 9.9 H, Lymphocytes # (Auto) 0.7 L, Monocytes # (Auto) 0.7, Eosinophils # (Auto) 0.5, Basophils # (Auto) 0.0, Calcium Level 7.3 L, Aspartate Amino Transf (AST/SGOT) 22, Alanine Aminotransferase (ALT/SGPT ) 7 L, Alkaline Phosphatase 118 H, Total Bilirubin 0.7, Total Protein 4.8 L, Albumin 1.8 L Vital Signs Date Time Temp Pulse Resp B/P (MAP) Pulse Ox O2 Delivery O2 Flow Rate FiO2 07/09/17 12:00 97.6 73 18 100/60 (73) 98 Room Air 07/09/17 08:04 2.0 I&O- Last 24 Hours up to 6 AM 07/09/17 06:00 Intake Total 1490 ml Output Total 800 ml Balance 690 ml KARON PRINGLE MD Jul 09, 2017 15:13
[2017-07-09 16:00] VITALS: BP 104/55
[2017-07-09 20:00] VITALS: BP 100/58
--- NOTE | 2017-07-09 21:35 | CR ---
DATE OF CONSULTATION: 07/09/2017 I was asked by Dr. Bridges to see . Marian Meek for episodes of nonsustained ventricular tachycardia. HISTORY OF PRESENT ILLNESS: Most of the information were obtained from the patient's chart. When I interviewed the patient she was somewhat defensive and it was difficult to establish good rapport. She is a 72-year-old female who has metastatic colon cancer and is still undergoing chemotherapy. She was admitted to this facility due to anorexia, decreased mobility, and dizziness. There has had very poor oral intake. It was felt that she has left-sided pneumonia and has been treated with antibiotics. She was doing relatively well but has had episodes of numerous arrhythmias ranging from ectopic supraventricular and ventricular beats as well as runs of supraventricular tachycardia and nonsustained ventricular tachycardia. The patient tells me that she has no subjective awareness of any of these rhythm problems. I was unable to get a reasonable history from her, the patient seems to be very reluctant to answer most of the questions. She tells me that this is nothing new, that she was hospitalized in [facility] in [place] a few months ago and has the same problem. She told me that I should contact [facility] for all the information. To the best of her understanding there is no prior history of coronary artery disease. PAST MEDICAL HISTORY: 1. History of colon cancer with metastases to lungs and history of left upper lobectomy. The diagnosis was actually made in 2008. She is still getting chemotherapy under direction of Dr. León from [facility]. 2. COPD. 3. History of pneumonia. 4. History of complications from chemotherapy including leukopenia, thrombocytopenia, dehydration and poor oral intake. SURGICAL HISTORY: Positive for left hip replacement, right upper lobectomy, [id number], right hemicolectomy, appendectomy. ALLERGIES: She reports no medication allergies. SOCIAL HISTORY: The patient used to smoke but quit after approximately 50 years in 2008. No alcohol use. She is and lives with her . 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 FAMILY HISTORY: Father of congestive heart failure. Mother from peritonitis. REVIEW OF SYSTEMS: Only limited information was obtainable. She denies any history of stroke. She denies any chest pain, palpitations or syncope. She does admit that her appetite has been chronically poor and she has had poor oral intake. OUTPATIENT MEDICATIONS: - albuterol as needed - amlodipine 5 mg a day - Lomotil as needed for diarrhea - Imodium as needed for diarrhea - Aleve 440 twice a day - Stivarga 120 mg daily, it looks like the last dose was administered on 07/06/2017 PHYSICAL EXAMINATION: Mrs. Meek is an elderly woman. She does not appear to be in any distress and she does not appear to be acutely ill but appears chronically ill. She is alert and oriented times three, but has a rather defensive attitude and answers only the bare minimum. Blood pressure 104/55, heart rate has been in 70s and 80s, sinus rhythm with frequent ectopy as above. She is afebrile. Saturation is 95% on room air. Her JVP is not elevated. There is Port-A-Cath in right chest. The lungs reveal fairly clear lung sounds, even though there are occasional crackles and rhonchi but considering the finding on CT, relatively unremarkable. Abdomen has generalized tenderness. I did not appreciate any distinct guarding. There is no significant peripheral edema. Neurologically, I did not do any thorough exam, but she is alert and oriented and appropriate and moves all four extremities. There is generalized weakness. LABORATORY DATA: CBC reveals hemoglobin 9.9, hematocrit 30.5, platelet count 168,000 and WBC count 11.8. Basic metabolic panel as of today, potassium 3.7, BUN 28, creatinine 1.4 for GFR of 40, and glucose 101. Calcium was 7.3, phosphorus was low at 2.1 and magnesium was 1.9. She had normal cardiac enzymes. Albumin is 1.8. Chest x-ray reveals retracted left upper lobe with dense infiltrate and nodular lesions in her right lung field. Otherwise there is no cardiomegaly and the x-ray is consistent with COPD. CT of the chest revealed bilateral, likely metastatic lesions with probable postobstructive pneumonia in remaining left lung and bilateral metastases in adrenal glands. ECG in the chart from 0518 hours this morning reveals sinus rhythm with atrial ectopy and poor R-wave progression but relatively unremarkable ECG. ASSESSMENT/PLAN: Mrs. Meek is a 72-year-old female who has metastatic colon cancer with bilateral adrenal lesions as well as bilateral lung lesions. The diagnosis was made many years ago and looks like she has been maintained on chronic chemotherapy. She now has very complex ventricular ectopy in the setting of likely pneumonia. Unfortunately, it was not possible to have a reasonable discussion with the patient about her illness. I will try to get more information from her oncologist but the patient firmly wants to stay FULL CODE. Even though I do not believe that this is a reasonable decision, will certainly respect her wishes. It looks like that after some supplemental magnesium being administered and phosphorus being administered, the frequency of her ectopy markedly decreased. It is difficult to administer beta-blockers or amiodarone because of low blood pressure and tendency for bradycardia. Nevertheless, should there be recurrent ventricular arrhythmias, I think that we will have no choice and start her on amiodarone. I would prefer to avoid this if only possible. An echocardiogram was ordered. Based on ECG and chest x-ray though, it appears unlikely that she would have malignant pericardial effusion or LV dysfunction. Will request records from [facility] to see what was done in the past and what kind of problems she had before. Her prognosis is certainly very poor and in case she has full sustained ventricular tachycardia, it probably will deteriorate further. DENISSE
--- NOTE | 2017-07-09 23:58 | ECHO ---
DATE OF PROCEDURE: 07/09/2017 REFERRING PHYSICIAN: Dr. Jeffrey Bridges INDICATION: Pericardial effusion. HEIGHT: 165 cm WEIGHT: 62 kg 2D MEASUREMENTS: Ventricular septum: 0.91 cm Posterior wall: 0.97 cm Left ventricle diastole: 3.6 cm Left atrium: 2.8 cm Aortic root: 3.0 cm LVOT: 2.0 cm Inferior vena cava: 1.4 cm (greater than 50% respiratory variation) DOPPLER MEASUREMENTS: Aortic valve velocity: 172 cm/s LVOT velocity: 89.5 cm/s LVOT VTI: 17.0 cm Very mild mitral regurgitation Mitral E velocity: 55.3 cm/s Mitral A velocity: 81.4 cm/s Mild tricuspid regurgitation Estimated right ventricle systolic pressure: 49 mmHg assuming a right atrial pressure of 5 mmHg MITRAL ANNULAR TISSUE DOPPLER: E prime septal: 5.1 cm/s E prime lateral: 9.2 cm/s DESCRIPTION: Rhythm was sinus. Image quality was fair. This was a 2D, M-mode, color flower Doppler and pulse wave Doppler examination and included mitral annular tissue Doppler. CONCLUSIONS: 1. No pericardial effusion. 2. Normal left ventricle internal dimensions and wall thickness. Normal regional left ventricular (LV) wall motion and wall thickening. Normal LV systolic function. Left ventricular ejection fraction (LVEF) of 65% by visual estimate. Grade 1 LV diastolic dysfunction. 3. Suggestive of moderate elevation of estimated right ventricle systolic pressure (49 mmHg). Normal right ventricle size and systolic function. Mild tricuspid regurgitation.
[2017-07-10] VITALS (7 sets, daily range): BP systolic 96–117; BP diastolic 54–63
[2017-07-10] MEDS: D5W/0.9% SODIUM CHLORIDE 1,000 ML IV SCH ×4 (02:19→20:10)
[2017-07-10] MEDS: PIPERACILLIN/TAZOBACTAM SOD 4.5 GM in D5W MINI-BAG PLUS 50 ML IV SCH ×3 (05:12→20:07)
[2017-07-10] MEDS: HEPARIN SOD (PORCINE) 5000 UNITS/ML VIAL SC SCH (05:12)
[2017-07-10 05:26] LABS: BASO % 0.3 % (0.0-1.0); EOS # 0.5 K/mm3 (0.0-0.50); EOS % 4.2 % (0.0-3.0); LARGE UNSTAINED CELL # 0.2 K/mm3 (0.0-0.4); LARGE UNSTAINED CELL % 1.6 % (0.0-4.0); LYMPH # 0.8 K/mm3 (1.5-4.5); LYMPH % 5.3 % (24.0-44.0); MEAN CORPUSCULAR HEMOGLOBIN 29.6 pg (27.0-33.0); MEAN CORPUSCULAR HGB CONC 32.5 g/dl (32.0-36.5); MEAN CORPUSCULAR VOLUME 90.8 fl (80.0-96.0); MONO # 0.8 K/mm3 (0.0-0.8); MONO % 7.3 % (0.0-5.0); NEUTROPHILS % 81.4 % (36.0-66.0); PLATELET COUNT, AUTOMATED 140 k/mm3 (150-450); RED CELL DISTRIBUTION WIDTH 14.9 % (11.5-14.5); WHITE BLOOD COUNT 11.1 K/mm3 (4.0-10.0)
[2017-07-10 05:56] LABS: RETIC HEMOGLOBIN CONTENT CHr 27.3 PG (24-36); RETICULOCYTE ABSOLUTE ADVIA212 22 x10(9)/L (17-77)
[2017-07-10 06:13] LABS: ALBUMIN 1.5 GM/DL (3.2-5.2); ALBUMIN/GLOBULIN RATIO 0.5 (1.00-1.93); BILIRUBIN,TOTAL 0.6 MG/DL (0.2-1.0); CALCIUM LEVEL 6.7 MG/DL (8.8-10.2); CREATININE FOR GFR 1.12 MG/DL (0.55-1.02); GLOMERULAR FILTRATION RATE 51.1 (>39); POTASSIUM SERUM 3.2 MEQ/L (3.5-5.1); TOTAL PROTEIN 4.5 GM/DL (6.4-8.2)
[2017-07-10] MEDS ORDERED: POTASSIUM CHLORIDE 10 MEQ SR TABLET PO ONE ×2 (06:45→07:45)
[2017-07-10 07:34] LABS: INR 1.26
--- NOTE | 2017-07-10 07:49 | IPN ---
DATE: 07/10/2017 Patient continued to have variety of arrhythmias overnight and including this morning, but the dominant problem were multiple runs of nonsustained ventricular tachycardia. They were all asymptomatic. There were no other significant events and most specifically, there was no bradycardia. This morning her vital signs reveal blood pressure 108/62, heart rate has been 70s, afebrile. Saturation is 98-100% on normal air. Her fluid balance yesterday was still documented at slightly negative but weight is about the same Physical exam is unchanged since yesterday, principally regular rhythm. Laboratory gardner, potassium was 3.2 this morning. It was already replaced. BUN 21, creatinine 1.1, glucose 113, albumin 1.5. CBC: Hemoglobin 9.4, hematocrit 28.9 ASSESSMENT AND PLAN: Mrs. Meek is a 72-year-old female who has stage IV colon cancer with metastases to adrenals and bilateral lungs, and now possibly postobstructive pneumonia. She has multiple runs of a variety of arrhythmias, but the most dominant is ventricular tachycardia. She tolerated the arrhythmia well and is actually virtually asymptomatic during her bouts. Her baseline ECG is relatively normal. An echocardiogram reveals preserved LV systolic function. No significant valvular disease and approximately moderate pulmonary hypertension. I think that considering her overall poor prognosis and anorexia and poor oral intake I am somewhat reluctant to start on amiodarone. I am afraid that it would further diminish her already poor quality of life. Blood pressure is a little bit better today, so I am going to give her a small dose of beta-kervin and attempt to suppress some of these arrhythmias. Ultimately though, I think that it is manifestation of underlying condition and unless symptomatic should be left untreated short of correction of underlying metabolic abnormalities if possible. Her prognosis is certainly poor but it is not changed by presence of her arrhythmias.
[2017-07-10] MEDS ORDERED: GASTROGRAFIN SOLUTION 30ML PO ONE (08:30)
[2017-07-10] MEDS: METOPROLOL SUCC *XL* 25MG TAB (TopROL *XL*) PO SCH (08:54)
[2017-07-10] MEDS: VANCOMYCIN HCL 1,000 MG, VIAL MATE ADAPTER 1 EACH in D5W 250 ML IV SCH (08:55)
[2017-07-10] MEDS ORDERED: GASTROGRAFIN SOLUTION 30ML (Q9963) PO ONE (09:00)
--- NOTE | 2017-07-10 10:37 | PHACANCOPD ---
PHARMACY VANCOMYCIN DOSING Pt Demographics Demographics Patient Age:72 , Weight:61.300 , Gender: female Adjusted Body Weight Date: 07/08/17, Adjusted Body Weight: [na] Kg Events Past 24 Hours Events Past 24 Hours: YES: Elevation in WBC, Pending Diagnostics Vancomycin Vancomycin indication: HCAP Vancomycin Target Ranges: 15-20 mcg/ml Vancomycin Load Y/N: No Load Dose Date Time Vancomycin Load Dose: Date: Time: Vancomycin Dose Date: 07/08/17. Current Vancomycin Dose: [1g IV Q12H @08] Intermittent Dosing?: No Labs Micro Microbiology 07/07/17 Blood Culture - Preliminary, Resulted No Growth after 48 hours. All Specime... 07/07/17 Blood Culture - Preliminary, Resulted No Growth after 48 hours. All Specime... 07/08/17 Influenza Virus Type A Antigen - Final, Complete 07/08/17 Influenza Virus Type B Antigen - Final, Complete 07/07/17 MRSA Screen - Final, Complete 07/07/17 Gram Stain - Final, Resulted 07/07/17 Sputum Culture, Resulted Pending Creatinine Clearance Date:07/08/17. Creatinine Clearance: [~29 ml/min]. Assessment and Plan Maintaining Current Dose?: Yes Reason for dose change: No Dose Change Pharmacist Note Pharmacist Note 07/10/17: Scr today is 1.12 from 1.69 at the start of vancomycin therapy. I have scheduled a vancomycin trough to be drawn tonight, 07/10/17, at 1900. We will follow-up on trough and adjust dosing if needed. Date: 07/08/17. Pharmacist note: pt has been started on vancomycin for HCAP, possible post obstructive pneumonia. Her PMHx is significant for metastatic colon cancer. She does not have a Hx of MRSA and she was last on vancomycin at our facility in Nov 2014. I will resume similar dosing of vancomycin 1g IV q12h. Her SCr is currently elevated but improving, baseline SCr is ~0.7 mg/dl. We will continue to monitor and order a trough as necessary. DRE DICK PHARMACY Jul 10, 2017 10:37
--- NOTE | 2017-07-10 11:14 | REP ---
CT abdomen and pelvis with oral but without IV contrast: History: Bright red blood per rectum. CT findings: Digital preliminary guitar maker radiograph is unremarkable. Left hip is replaced. There is patchy consolidation in the left lower lobe of the lung. This is more pronounced than it was on July 07, 2017 consistent with progressive consolidation. There is a left pleural effusion also noted. This is a new finding. No evidence of free air is seen. Calcified bilateral adrenal masses are seen consistent with metastatic disease. This is unchanged compared with the July 07, 2017 study. The left adrenal mass measures 4.5 cm and the right 5.8 cm. No other retroperitoneal mass or adenopathy is seen. There appear to be two intrarenal calculi in the left mid kidney without hydronephrosis. No gallbladder abnormality is seen. Pancreas is unremarkable. No definite liver mass is seen. Small and large bowel loops show an anastomoses in the right lower quadrant. No mass or obstruction is seen. There is left colonic diverticulosis. Impression: Left colonic diverticulosis without CT evidence of diverticulitis. No obstruction or bowel mass seen. Right lower quadrant surgical anastomosis noted. Bilateral calcified adrenal masses consistent with metastases. New left pleural effusion and progressive consolidation left lower lobe of the lung. Signed by Frantz Spain MD 07/10/2017 11:18 A
[2017-07-10] MEDS ORDERED: AMIODARONE HCL 150 MG in APPROPRIATE DILUENT 1 EA IV STA (14:06)
--- NOTE | 2017-07-10 23:39 | PHACANCOPD ---
PHARMACY VANCOMYCIN DOSING Pt Demographics Demographics Patient Age:72 , Weight:61.300 , Gender: female Adjusted Body Weight Events Past 24 Hours Events Past 24 Hours: NO: Dialysis, Diuretic Therapy, Change in CrCl, Fever, Elevation in WBC, Pending Diagnostics, Pending Procedures, Other Vancomycin Vancomycin indication: HCAP Vancomycin Target Ranges: 15-20 mcg/ml Vancomycin Load Y/N: No Load Dose Date Time Vancomycin Load Dose: Date: Time: Vancomycin Dose Date: 07/08/17. Current Vancomycin Dose: [1g IV Q12H @08] Intermittent Dosing?: No Labs Labs Laboratory Tests Test 07/10/17 18:35 Vancomycin Level Trough 25.1 UG/ML (10.0-20.0) Laboratory Tests 07/10/17 05:07 Calcium Level 6.7, Red Blood Count 3.18, Mean Corpuscular Volume 90.8, Mean Corpuscular Hemoglobin 29.6, Mean Corpuscular Hemoglobin Concent 32.5, Red Cell Distribution Width 14.9, Neutrophils (%) (Auto) 81.4, Lymphocytes (%) (Auto) 5.3 , Monocytes (%) (Auto) 7.3, Eosinophils (%) (Auto) 4.2, Basophils (%) (Auto) 0.3 , Neutrophils # (Auto) 9.0, Lymphocytes # (Auto) 0.8, Monocytes # (Auto) 0.8, Eosinophils # (Auto) 0.5, Basophils # (Auto) 0.0, Aspartate Amino Transf (AST/ SGOT) 21, Alanine Aminotransferase (ALT/SGPT) 7, Alkaline Phosphatase 141, Total Bilirubin 0.6, Total Protein 4.5, Albumin 1.5 07/10/17 12:24 07/10/17 18:10 Micro Microbiology 07/07/17 Blood Culture - Preliminary, Resulted No Growth after 72 hours. All specime... 07/07/17 Blood Culture - Preliminary, Resulted No Growth after 72 hours. All specime... 07/08/17 Influenza Virus Type A Antigen - Final, Complete 07/08/17 Influenza Virus Type B Antigen - Final, Complete 07/07/17 MRSA Screen - Final, Complete 07/07/17 Gram Stain - Final, Resulted 07/07/17 Sputum Culture, Resulted Pending Creatinine Clearance Date:07/10/17. Creatinine Clearance: [30 ml/min]. Assessment and Plan Maintaining Current Dose?: No Reason for dose change: Trough too high Pharmacist Note Pharmacist Note 07/10/17: Scr today is 1.12 VANCO TR >25 mcg/ml (GOAL 15-20 mcg/ml) WE WILL CHANGE THE VANCO FROM 1GM IV Q12H TO Q18H STARTING AT 02:00 07/11 RUPA ROMERO PHARMACY Jul 10, 2017 23:39
[2017-07-11] MEDS: D5W/0.9% SODIUM CHLORIDE 1,000 ML IV SCH (00:25)
[2017-07-11] MEDS ORDERED: VANCOMYCIN HCL 1,000 MG, VIAL MATE ADAPTER 1 EACH in D5W 250 ML IV SCH (02:00)
[2017-07-11 04:04] VITALS: BP 107/56
[2017-07-11] MEDS: PIPERACILLIN/TAZOBACTAM SOD 4.5 GM in D5W MINI-BAG PLUS 50 ML IV SCH ×3 (04:57→21:42)
[2017-07-11 05:27] LABS: BASO % 0.3 % (0.0-1.0); EOS # 0.6 K/mm3 (0.0-0.50); EOS % 4.8 % (0.0-3.0); LARGE UNSTAINED CELL # 0.2 K/mm3 (0.0-0.4); LARGE UNSTAINED CELL % 1.3 % (0.0-4.0); LYMPH # 0.9 K/mm3 (1.5-4.5); LYMPH % 5.4 % (24.0-44.0); MEAN CORPUSCULAR HEMOGLOBIN 30.3 pg (27.0-33.0); MEAN CORPUSCULAR HGB CONC 32.8 g/dl (32.0-36.5); MEAN CORPUSCULAR VOLUME 92.4 fl (80.0-96.0); MONO # 0.9 K/mm3 (0.0-0.8); NEUTROPHILS # 10.6 K/mm3 (1.8-7.7); NEUTROPHILS % 81.3 % (36.0-66.0); PLATELET COUNT, AUTOMATED 104 k/mm3 (150-450); RED CELL DISTRIBUTION WIDTH 15.2 % (11.5-14.5); WHITE BLOOD COUNT 13.1 K/mm3 (4.0-10.0)
[2017-07-11 06:07] LABS: ALBUMIN 1.6 GM/DL (3.2-5.2); ALBUMIN/GLOBULIN RATIO 0.55 (1.00-1.93); ALKALINE PHOSPHATASE 181 U/L (45-117); ALT/SGPT 9 U/L (12-78); ANION GAP 7 MEQ/L (8-16); AST/SGOT 22 U/L (15-37); BILIRUBIN,TOTAL 0.7 MG/DL (0.2-1.0); BLOOD UREA NITROGEN 16 MG/DL (7-18); CALCIUM LEVEL 7.3 MG/DL (8.8-10.2); CARBON DIOXIDE LEVEL 26 MEQ/L (21-32); CHLORIDE LEVEL 108 MEQ/L (98-107); CREATININE FOR GFR 0.98 MG/DL (0.55-1.02); GLOMERULAR FILTRATION RATE 59.6 (>39); GLUCOSE, FASTING 125 MG/DL (83-110); POTASSIUM SERUM 3.8 MEQ/L (3.5-5.1); SODIUM LEVEL 141 MEQ/L (136-145); TOTAL PROTEIN 4.5 GM/DL (6.4-8.2)
--- NOTE | 2017-07-11 07:05 | IPN ---
DATE: 07/10/2017 SUBJECTIVE: The patient was seen and examined at the bedside. Chart has been reviewed. The patient was found to have two clotty bowel movements yesterday and today. No dizziness, lightheadedness. Hemoglobin and hematocrit (H and H) remain stable at 9.4 and 28.9, however, with admission hemoglobin of 11. No other issues per nursing. Overnight, the patient's telemetry continued to have nonsustained ventricular tachycardia (V-tach) with potassium load this morning and supplement magnesium. This is supplemented to two. PHYSICAL EXAMINATION: VITAL SIGNS: Temperature 97.5, pulse 80, respiratory rate 20, blood pressure 117/60, 97% two liters nasal cannula. GENERAL: The patient is in mild distress, but able to speak in full sentences. LUNGS: Port-A-Cath in the right chest. Diminished breath sounds with coarse rhonchi bilaterally. HEART: S1, S2. Regular rate and rhythm. ABDOMEN: Soft, nontender, nondistended. EXTREMITIES: No pitting edema. LABORATORY DATA: CBC and metabolic panel have been reviewed. Iron studies, peripheral smear, reticulocyte count. IMAGING: CT abdomen shows left colonic diverticulosis without diverticulitis. No obstruction. Surgical anastomosis in the right lower quadrant. Bilateral calcified adrenal masses consistent with metastatic lesions. New left pleural effusion and progressive consolidation in the left lower lobe of the lung. ASSESSMENT AND PLAN: This is a 72-year-old female with colon cancer, left upper lobectomy secondary to metastatic lesions to the lungs from primary colon cancer, status post surgery and chemotherapy, left upper lobe lobectomy, chronic obstructive pulmonary disease (COPD) not oxygen dependent, hypertension, chronic anemia, cachexia, presented to the emergency room (ER) with shortness of breath, cough, and fever over 3-[address] chest shows a postobstructive pneumonia with new pulmonary nodules consistent with metastatic disease, as well as known adrenal metastasis. CURRENT ISSUES: 1. Postobstructive pneumonia with underlying metastatic colon cancer. Still undergoing chemotherapy per Dr. León. Continue with intravenous (IV) antibiotics for now and outpatient followup with him for the metastatic cancer. 2. Frequent premature ventricular contractions (PVC) and paroxysmal atrial fibrillation. No amiodarone due to lung issues with postobstructive pneumonia, recurrent lung cancer and lobectomy. Currently on low-dose beta blockage with metoprolol 25 daily. 3. Postobstructive pneumonia on vancomycin and Zosyn. No significant improvement. Per Dr. Phillips, no change in management. Therefore, we will discontinue the pulmonary consult at this time. 4. History of colon cancer, status post surgical resection. Currently on chemotherapy, still with bright red blood. Monitor hemoglobin and hematocrit for now, and check a hemoccult stool. 5. Acute kidney injury, prerenal nature. No history of chronic kidney disease. Trending downwards on IV fluids. Currently at 1.12 from previous 2.20. 6. Hypoglycemia due to decreased oral intake. 7. Chronic obstructive pulmonary disease (COPD). No evidence of exacerbation. Not oxygen dependent. Continue with DuoNeb as needed. 8. Hypertension. Discontinued Norvasc due to low blood pressures. 9. 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 Currently with acute blood loss anemia. Monitor hemoglobin and hematocrit and transfuse as needed. 10. Cachexia. Encourage oral intake. 11. Arthritis, on Tylenol. 12. Deep venous thrombosis (DVT) prophylaxis. Thromboembolism deterrent stockings (MATTI) in light of recent GI bleed.
[2017-07-11 08:00] VITALS: BP 125/62
[2017-07-11] MEDS ORDERED: POTASSIUM CHLORIDE 10 MEQ SR TABLET PO ONE (08:15)
[2017-07-11] MEDS ORDERED: LEVALBUTEROL 1.25 MG/0.5 ML CONCENTRATE NEB INH PRN (08:15)
--- NOTE | 2017-07-11 08:17 | IPN ---
DATE: 07/11/2017 I did not see the patient today but I did review her blood work and her telemetry strips since yesterday. There has been fairly substantial improvement. She still has fairly frequent premature ventricular contractions (PVCs) and very occasional brief runs of nonsustained ventricular tachycardia, but both the frequency and duration of episode has markedly improved. No significant bradyarrhythmias. Vital signs remain approximately stable. Blood pressure 107/56, heart rate is in mostly the 60s and 70s. She is afebrile. Saturation 96% on room air. Weight 64.3 kg. Basic metabolic panel reveals potassium 3.8, BUN 16, creatinine 1 and glucose 125, magnesium is 2, calcium 7.3 and albumin is 1.6. CBC remains roughly stable with hemoglobin 10.3, hematocrit 31, she did have some rectal bleeding. ASSESSMENT AND PLAN: Mrs. Meek is a 72-year-old female with a history of colon cancer, status post hemicolectomy and resection of left upper lobe for metastatic disease. Now she has evidence for lesions in both right and left lung sam together with bilateral adrenal masses. There was a discussion between the primary attending, Dr. Roldan and Dr. Jimenez, who is her oncologist, who expressed opinion that she has actually responded to chemotherapy and it should be continued. From my perspective, I think the ventricular ectopy is clearly due to underlying sickness. With correction of electrolytes, I would use only a low-dose beta kervin and occasional as-needed amiodarone in case she has more complex ventricular ectopy, but she has preserved left ventricular systolic function and there is nothing to indicate underlying ischemic heart disease. Consequently I do not have any further plans for evaluation. I certainly do not believe that the patient is a candidate for defibrillator due to stage IV cancer. I also do not believe that she would benefit from long-term amiodarone use due to very likely side effects as she has a very poor oral intake to start with. I am going to sign off her care. Please do not hesitate to contact me if further assistance is desired. I spoke about the patient extensively to Dr. Roldan. [facility]
[2017-07-11] MEDS: MEGESTROL SUSP 400 MG/10 ML UDC PO SCH (09:00)
[2017-07-11] MEDS: METOPROLOL SUCC *XL* 25MG TAB (TopROL *XL*) PO SCH (09:00)
--- NOTE | 2017-07-11 09:37 | REP ---
PORTABLE CHEST: AP portable view of the chest is performed and compared to a prior study of 07/07/2017. Left lung infiltrates are essentially unchanged. Cardiomediastinal silhouette is unchanged. No new infiltrate is seen on the right. There is a right central venous catheter again noted. IMPRESSION: Stable exam. Signed by Ryan Austin MD 07/11/2017 04:39 P
--- NOTE | 2017-07-11 09:51 | ECGEPIP ---
Stationary ECG Study [facility] Test Date: 2017-07-11 Pat Name: GARY HOANG Department: Room: [place] [address] Gender: F Traffic I Manager: DORIS : 1945 Requested By: TRAVIS Serrano Order Number: [id number] Reading MD: Shaniqua Byrd Measurements Intervals [place] Rate: 65 P: 92 VT: 173 QRS: 61 QRSD: 94 T: 61 QT: 403 QTc: 419 Interpretive Statements SINUS RHYTHM WITH OCCASIONAL VENTRICULAR PREMATURE COMPLEXES NEW PRWP POSSIBLE OLD SEPTAL WA LOW VOLTAGE LIMB NONSPECIFIC STTWA PAC ON PRIOR 07/09/17 Electronically Signed On 07-11-2017 9:51:39 EDT by Shaniqua Byrd
[2017-07-11] MEDS: LEVALBUTEROL 1.25 MG/0.5 ML CONCENTRATE NEB INH SCH ×5 (10:04→23:26)
[2017-07-11 12:00] VITALS: BP 103/60
[2017-07-11] MEDS ORDERED: FUROSEMIDE 20 MG/2 ML VIAL (J1940) IV ONE (12:00)
[2017-07-11 16:00] VITALS: BP 130/75
[2017-07-11 20:06] VITALS: BP 121/78
[2017-07-11 20:08] LABS: CALCIUM LEVEL 8.2 MG/DL (8.8-10.2); CREATININE FOR GFR 1.14 MG/DL (0.55-1.02); POTASSIUM SERUM 3.8 MEQ/L (3.5-5.1)
[2017-07-12 00:15] VITALS: BP 96/58
[2017-07-12] MEDS: LEVALBUTEROL 1.25 MG/0.5 ML CONCENTRATE NEB INH SCH ×5 (04:00→19:55)
[2017-07-12] MEDS: PIPERACILLIN/TAZOBACTAM SOD 4.5 GM in D5W MINI-BAG PLUS 50 ML IV SCH ×3 (05:01→22:28)
[2017-07-12 05:04] VITALS: BP 134/70
[2017-07-12 05:36] LABS: BASO % 0.3 % (0.0-1.0); EOS # 0.4 K/mm3 (0.0-0.50); EOS % 3.3 % (0.0-3.0); LARGE UNSTAINED CELL # 0.2 K/mm3 (0.0-0.4); LARGE UNSTAINED CELL % 1.5 % (0.0-4.0); LYMPH % 6.2 % (24.0-44.0); MEAN CORPUSCULAR HEMOGLOBIN 28.8 pg (27.0-33.0); MEAN CORPUSCULAR HGB CONC 32.7 g/dl (32.0-36.5); MEAN CORPUSCULAR VOLUME 88.3 fl (80.0-96.0); MONO # 0.7 K/mm3 (0.0-0.8); MONO % 5.1 % (0.0-5.0); NEUTROPHILS # 11.1 K/mm3 (1.8-7.7); NEUTROPHILS % 83.5 % (36.0-66.0); PLATELET COUNT, AUTOMATED 103 k/mm3 (150-450); WHITE BLOOD COUNT 13.3 K/mm3 (4.0-10.0)
[2017-07-12 05:50] LABS: ALBUMIN 1.7 GM/DL (3.2-5.2); ALBUMIN/GLOBULIN RATIO 0.5 (1.00-1.93); BILIRUBIN,TOTAL 0.8 MG/DL (0.2-1.0); CALCIUM LEVEL 7.6 MG/DL (8.8-10.2); CREATININE FOR GFR 1.21 MG/DL (0.55-1.02); GLOMERULAR FILTRATION RATE 46.7 (>39); MAGNESIUM LEVEL 1.7 MG/DL (1.8-2.4); POTASSIUM SERUM 3.9 MEQ/L (3.5-5.1); TOTAL PROTEIN 5.1 GM/DL (6.4-8.2)
[2017-07-12] MEDS ORDERED: POTASSIUM CHLORIDE 10 MEQ SR TABLET PO ONE (07:00)
--- NOTE | 2017-07-12 07:09 | IPN ---
DATE: 07/11/2017 SUBJECTIVE: Patient seen and examined at the bedside. Chart has been reviewed. This morning the patient complains of increasing shortness of breath. The patient denies any recurrent bright red blood per rectum. Denies worsening shortness of breath. Still with nonsustained ventricular tachycardia (V-tac) 2-3 beats, but improved from yesterday. Still with decrease in appetite per family. OBJECTIVE: VITAL SIGNS: Temperature 96.3, pulse 68, respiratory rate 19, blood pressure 125/60, 97% on room air. GENERAL: The patient is awake and alert, oriented to place. LUNGS: Diminished breath sounds with crackles bilateral bases. HEART: S1, S2. Sinus rhythm. ABDOMEN: Soft, nontender, nondistended. Positive bowel sounds. EXTREMITIES: Have no pitting edema. LABORATORY DATA: Magnesium and potassium have been reviewed. 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 chest shows postobstructive pneumonia with new pulmonary nodules consistent with metastatic disease, as well as known adrenal metastasis. The patient has developed atrial fibrillation with rapid ventricular rate (RVR), currently in sinus rhythm, as well as episodes of nonsustained ventricular tachycardia on telemetry, and today complains of bloody clots with bowel movements. IMPRESSION: 1. Postobstructive pneumonia with underlying metastatic colon cancer. Metastatic lesions to the lungs. Still undergoing chemotherapy per Dr. León. Continue with intravenous (IV) antibiotics for now. Patient to followup with him for metastatic cancer for PET scan and repeat CT chest to determine whether chemotherapy should be changed versus resection of the pulmonary nodules that are metastatic. 2. Paroxysmal atrial fibrillation, currently sinus rhythm with nonsustained ventricular tachycardia on telemetry. The patient has been given IV amiodarone yesterday, responded well to small dose of beta blockade. The patient is not a candidate for automatic implantable cardioverter defibrillator (AICD) in light of recurrence of colon cancer with bilateral adrenal metastases and new pulmonary metastasis. She is also not a candidate for custodial amiodarone due to left upper lobectomy, COPD history, and new pulmonary metastasis and recent postobstructive pneumonia due to risk of pulmonary fibrosis. 3. History of colon cancer, status post surgical resection and chemotherapy, currently with recurrence and new metastasis to the lungs as well as persistent metastasis to the adrenals. Per Dr. León, hematology/oncology in [place], current chemotherapy regimen has had some improvement with carcinoembryonic antigen (CEA) numbers decreasing from 64 to 26, and currently at 2.6. However, the patient does have new metastasis in the lungs. He advised to continue treatment for pneumonia and once the patient is medically stable, then discharge home to followup with him as outpatient to determine next course of action. 4. Acute kidney injury, prerenal. No history of chronic kidney disease, trending down. Currently improved from previous admission, creatinine of 2.20. 5. Hypoglycemia due to decreased oral intake. The patient has been placed on D5W, but now has shortness of breath. 6. COPD. No evidence of exacerbation. As needed Xopenex and scheduled Xopenex. 7. Hypertension. Discontinue Norvasc due to low blood pressure. 8. Cancer cachexia. Nutrition consult. Ensure. 9. Deep venous thrombosis (DVT) prophylaxis with deterrent stockings. 10. Thrombocytopenia. Admission platelet count of 215. Check heparin-induced antibodies.
[2017-07-12] MEDS: MAG SULF 1GM/100ML (MAG RUN) 1 GM in APPROPRIATE DILUENT 1 EA IV SCH ×2 (07:40→08:53)
[2017-07-12 08:00] VITALS: BP 92/59
--- NOTE | 2017-07-12 08:51 | REP ---
Portable chest x-ray: Single view. History: Shortness of breath. Comparison chest x-ray July 11, 2017. Findings: EKG monitoring electrodes, oxygen delivery tubing, and a right-sided [id number] catheter are again seen. Consolidation volume loss in the left upper lung zone and fullness in the left hilus again noted. No new infiltrate is seen. Signed by Frantz Spain MD 07/12/2017 08:59 A
[2017-07-12] MEDS: MEGESTROL SUSP 400 MG/10 ML UDC PO SCH (08:53)
[2017-07-12] MEDS: POTASSIUM CHLORIDE 10 MEQ SR TABLET PO SCH (08:53)
[2017-07-12] MEDS: SODIUM CHLORIDE 0.9% INJ 10 ML SYR IV SCH (08:56)
[2017-07-12] MEDS: METOPROLOL SUCC *XL* 25MG TAB (TopROL *XL*) PO SCH (08:56)
[2017-07-12 12:00] VITALS: BP 118/67
[2017-07-12 16:00] VITALS: BP 122/56
[2017-07-12 20:00] VITALS: BP 128/65
--- NOTE | 2017-07-12 21:38 | IPN ---
DATE: 07/12/2017 Patient seen and examined at the bedside. Chart has been reviewed. This morning, the patient stated her breathing is slightly improved. She remains with 2-3 beats of nonsustained ventricular tachycardia (v tach) on telemetry around midnight, systolic pressure in the 90s, 96/58 but asymptomatic. Denies chest pain, pressure, tightness, shortness of breath or chest heaviness. This morning, she continues to have a cough productive of white sputum, afebrile, no fever, no nausea or vomiting, tolerating her diet with decrease in oral intake despite Megace and Ensure supplementation. Washer Operator has been consulted. The patient complained of significant respiratory distress yesterday and was given one dose of intravenous Lasix 20 mg IV with output of 1.5 liters, negative 410. Current weight is 61.2 kg. Repeat chest x-ray showed no chronic changes, stable examination. BNP slightly elevated at over 600. Per nursing, the patient has been increasingly confused at night with acute delirium and episodes of paranoia. Vital signs: Temperature 97.5, pulse 79, respiratory rate 18, blood pressure 92/59, 99% on 2 liters nasal cannula. General: Awake, alert, oriented to person. Lungs: Diminished crackles at the bases. Heart: S1, S2. Regular rate and rhythm. Abdomen: Soft, nontender, nondistended. Extremities: No pitting edema. Neurologic: She is awake, alert, oriented to person, place and time, answering questions appropriately. No respiratory distress. Motor function is 5/5 times four extremities. Gait was not tested. No dysmetria on [id number] testing. LABORATORY DATA: White count 13.3, hemoglobin 10, hematocrit 30, platelet count of 103. Sodium 144, potassium 3.9, chloride 107, bicarbonate 26, BUN 14, creatinine 1.21, glucose of 94. Microbiology: 07/07/2017: Mold like organism, Ochrobactrum anthropi, susceptible to aminoglycosides, carbenicillin, fluoroquinolones, imipenem, tetracycline and Bactrim. The patient is continued on Zosyn. 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 León, Hematology/Oncology, in [place], chronic obstructive pulmonary disease (COPD), non-oxygen dependent, hypertension, chronic anemia, cancer cachexia, presents to the emergency room with shortness of breath, cough and fever over 3-4 days. She was found to have on CT chest a postobstructive pneumonia with new pulmonary nodules consistent with metastatic lesions as well as known adrenal metastasis. During her admission, she developed atrial fibrillation with rapid ventricular rate, currently sinus rhythm with episodes of nonsustained ventricular tachycardia on telemetry, had episodes of bloody blood clots with bowel movements with repeat CT abdomen and pelvis negative for any colonic mass. The patient has had episodes of electrolyte abnormalities, which have been replenished with potassium and magnesium supplements. IMPRESSION: 1. Postobstructive pneumonia with underlying metastatic colon cancer to the lungs which are new, as well as known adrenal metastasis. Per Dr. León, patient's CEA has significantly improved from March to May until now, previously 56, then 25 and currently it is 6, currently on IV antibiotics with intravenous Zosyn. The patient's sputum culture has grown out Ochrobactrum anthropi and mold like organism; currently on Zosyn. Vancomycin has been discontinued. Will discuss with Dr. Panda regarding adequate coverage or whether the patient can be transitioned to doxycycline. 2. Paroxysmal atrial fibrillation. Currently sinus rhythm, episodes of nonsustained ventricular tachycardia on telemetry. The patient had been given doses of IV amiodarone and responded well to small dose beta blockade. Potassium, magnesium are supplemented as needed. The patient is not a candidate for automatic implantable cardioverter defibrillator in light of recurrent colon cancer, bilateral adrenal metastasis and new pulmonary metastasis, also not a candidate for long-term amiodarone due to left upper lobectomy, COPD and new pulmonary metastasis and recent postobstructive pneumonia due to risk of worsening pulmonary fibrosis. 3. History of colon cancer. Status post surgical resection and chemotherapy, currently with recurrence with new metastasis to the lungs, as well as persistent metastasis to the adrenals. Per Dr. León, Sales Support Consultant/Oncologist, in [place], current chemotherapy regimen has had some improvement with CEA numbers decreasing from 54 to 25, to currently 2.6. However, the patient does have new metastatic lesions to the lungs. He has advised to continue treatment for postobstructive pneumonia and once the patient is medically stable, then discharge home to followup with him as an outpatient to determine next course of action with a PET scan, repeat CT chest and changing chemotherapy regimen if needed. 4. Acute kidney injury, prerenal. No history of chronic kidney disease. Patient had improvement but developed acute kidney injury due to Lasix yesterday given for respiratory distress. 5. Respiratory distress, acute hypoxic respiratory failure secondary to postobstructive pneumonia due to metastatic colon cancer with metastatic lesions to the lungs, currently being treated with IV antibiotics. 6. Hypoglycemia due to decreased oral intake. Has been on D5W but developed respiratory distress; therefore, IV fluids have been discontinued. Nebulizer treatments have been given. Encourage oral intake. Washer Operator consult with Ensure supplementation and Megace. 7. Chronic obstructive pulmonary disease (COPD). No evidence of exacerbation. As needed Xopenex and scheduled. 8. Hypertension. Due to low blood pressure, Norvasc has been discontinued. The patient has been placed on beta blockade, metoprolol, due to nonsustained ventricular tachycardia. 9. Cancer cachexia. Washer Operator consulted. Ensure. Protein-calorie malnutrition due to cancer cachexia. 10. Deep vein thrombosis (DVT) prophylaxis with deterrent stockings. 11. Thrombocytopenia. Admission platelet count of 215. Currently with platelet count of 103. Heparin-induced thrombocytopenia panel still pending. 12. Bright red blood per rectum with maroon clots. CT abdomen and pelvis repeated shows no obvious colonic mass. CEA is decreased. Patient's hemoglobin and hematocrit remain stable. Patient does not require immediate red blood cell transfusion. Will continue to monitor for now.
[2017-07-13] VITALS: BP 120/60
[2017-07-13 04:00] VITALS: BP 129/77
[2017-07-13] MEDS: LEVALBUTEROL 1.25 MG/0.5 ML CONCENTRATE NEB INH SCH ×6 (04:00→20:39)
[2017-07-13] MEDS: PIPERACILLIN/TAZOBACTAM SOD 4.5 GM in D5W MINI-BAG PLUS 50 ML IV SCH ×3 (04:25→22:17)
[2017-07-13 04:45] LABS: BASO % 0.3 % (0.0-1.0); EOS # 0.5 K/mm3 (0.0-0.50); EOS % 3.7 % (0.0-3.0); LARGE UNSTAINED CELL # 0.2 K/mm3 (0.0-0.4); LARGE UNSTAINED CELL % 1.5 % (0.0-4.0); LYMPH % 6.2 % (24.0-44.0); MEAN CORPUSCULAR HEMOGLOBIN 29.2 pg (27.0-33.0); MEAN CORPUSCULAR HGB CONC 33.7 g/dl (32.0-36.5); MEAN CORPUSCULAR VOLUME 86.7 fl (80.0-96.0); MONO # 0.5 K/mm3 (0.0-0.8); MONO % 4.2 % (0.0-5.0); NEUTROPHILS # 10.4 K/mm3 (1.8-7.7); NEUTROPHILS % 84.1 % (36.0-66.0); RED CELL DISTRIBUTION WIDTH 14.8 % (11.5-14.5); WHITE BLOOD COUNT 12.3 K/mm3 (4.0-10.0)
[2017-07-13 05:40] LABS: PLATELET COUNT, AUTOMATED 94 k/mm3 (150-450)
[2017-07-13 05:41] LABS: ALBUMIN 1.7 GM/DL (3.2-5.2); ALBUMIN/GLOBULIN RATIO 0.53 (1.00-1.93); BILIRUBIN,TOTAL 0.8 MG/DL (0.2-1.0); CALCIUM LEVEL 7.7 MG/DL (8.8-10.2); CREATININE FOR GFR 1.03 MG/DL (0.55-1.02); GLOMERULAR FILTRATION RATE 56.2 (>39); POTASSIUM SERUM 4.1 MEQ/L (3.5-5.1); TOTAL PROTEIN 4.9 GM/DL (6.4-8.2)
[2017-07-13 08:00] VITALS: BP 117/74
[2017-07-13] MEDS: POTASSIUM CHLORIDE 10 MEQ SR TABLET PO SCH (08:05)
[2017-07-13] MEDS: METOPROLOL SUCC *XL* 25MG TAB (TopROL *XL*) PO SCH (08:07)
[2017-07-13] MEDS: SODIUM CHLORIDE 0.9% INJ 10 ML SYR IV SCH (08:08)
[2017-07-13] MEDS: MEGESTROL SUSP 400 MG/10 ML UDC PO SCH (08:08)
[2017-07-13 12:00] VITALS: BP 107/70
[2017-07-13 16:00] VITALS: BP 119/84
[2017-07-13 19:40] VITALS: BP 135/67
--- NOTE | 2017-07-13 21:39 | IPN ---
DATE: 07/13/2017 Patient seen and examined at the bedside. Chart has been reviewed. The patient continues to have bloody bowel movements. Hemoglobin and hematocrit (H and H) continues to be at 9.4 to 9.8. No nausea, vomiting, fever, chills, decrease in appetite. Temperature 97.7, pulse 71, respiratory rate 16, blood pressure 129/77, 98% on 2 liters nasal cannula. Generally, awake, alert, oriented to person, answering questions appropriately. No jugular venous distention, thyromegaly. Pupils are round and reactive to light and accommodation. Extraocular muscles are intact. Neck is supple. Full range of motion. No cervical lymphadenopathy or thyromegaly. Lungs are diminished with crackles at the bases. Heart: S1, S2, sinus rhythm. Abdomen: Soft, nontender, nondistended. Positive bowel sounds. Extremities: No cyanosis, clubbing or any pitting edema. LABORATORY DATA: CBC, metabolic panel have been reviewed. ASSESSMENT AND PLAN: This is a 72-year-old female with a history of colon cancer, metastatic lesions to bilateral adrenals, status post left upper lobectomy secondary to metastatic lesion to the lung from primary colon cancer, status post surgery and chemotherapy, sees Dr. León, hand printed circuit board assembler/oncologist, in [place], history of chronic obstructive pulmonary disease, not oxygen dependent, chronic anemia, cancer cachexia, presents to the emergency room with shortness of breath, cough and fever over 3-4 days, found to have CT chest with a postobstructive pneumonia and new pulmonary nodule consistent with new metastatic lesions, as well as known adrenal metastasis. During admission, she developed atrial fibrillation (a fib) with rapid ventricular response (RVR), currently sinus rhythm, episodes of nonsustained ventricular tachycardia (v tach) on telemetry with intermittent amiodarone given and low dose beta blockade. The patient has had episodes of bloody blood clots with bowel movements. Repeat CT abdomen and pelvis negative for colonic mass. The patient has had episodes of electrolyte abnormalities, low potassium and magnesium, which have been supplemented. The patient's echocardiogram appears to be normal. CURRENT ISSUES ARE FOLLOWS: 1. Postobstructive pneumonia. Underlying metastatic colon cancer to the lungs, which are new, as well as known adrenal metastasis. Per Dr. León, patient's carcinoembryonic antigen (CEA) significantly improved from March to May until now, previously 56, 25 and currently at 2.6. Currently on IV antibiotic with intravenous Zosyn. The patient had sputum culture that grew out Ochrobactrum anthropi and mold like organism. Currently on Zosyn. Vancomycin has been discontinued. Dr. Panda, infectious disease, has been consulted to discuss adequate coverage of this bacteria. 2. Paroxysmal atrial fibrillation. Currently sinus rhythm. Episodes of nonsustained ventricular tachycardia on telemetry with blood pressure well maintained. Has been given intermittent doses of IV amiodarone and responded well to small dose beta blockade. Potassium and magnesium are kept optimal, above 4 for potassium and at 2 with magnesium. The patient's echocardiogram is normal with adequate ejection fraction. No dyskinesia or akinesia, or wall motion abnormality. The patient is not a candidate for an automatic implantable cardioverter defibrillator (AICD) in light of recurrent colon cancer with bilateral adrenal metastasis and pulmonary metastasis, as well as not a candidate for long-term amiodarone due to significant lung issues, including left upper lobectomy, end-stage COPD, new pulmonary metastasis from known history of colon cancer and recent postobstructive pneumonia due to risk of pulmonary fibrosis. 3. History of colon cancer, status post surgical resection, chemotherapy, now with recurrence, with known history of adrenal metastasis and new metastasis to the lungs. Per Dr. León, patient's hand printed circuit board assembler/oncologist in [place], current chemotherapeutic regimen had slight improvement with CEA improving from 56 to 25 to currently 2.6 with a recent check now in June. The patient does have new metastatic lesions and was advised to continue treatment for postobstructive pneumonia. Once the patient is medically stable, then discharge home to followup with him as an outpatient to determine next course of action with PET scan, repeat CT chest and possibly changing chemotherapy regimen. I had specifically asked regarding hospice and comfort measures only but Dr. León believes that the chemotherapy regimen is currently working despite new pulmonary mets. The patient's functional status needs to be optimized prior to receiving further chemotherapy. 4. Acute kidney injury, prerenal. No history of chronic kidney disease. Patient had some improvement but developed acute kidney injury due to Lasix that she was given for respiratory distress. 5. Acute hypoxic respiratory failure requiring supplemental oxygen secondary to postobstructive pneumonia, metastatic colon cancer with new lesions in the lungs. Currently treated with DuoNebs, nebulizer treatments, supplement oxygen and continued on IV antibiotics for the postobstructive pneumonia. 6. Hypoglycemia due to decreased oral intake. Had been on D5W but developed respiratory distress due to IV fluids, which have now been discontinued. Currently encouraged to increase oral intake, on Megace. 7. Chronic obstructive pulmonary disease. No evidence of exacerbation. As needed Xopenex and scheduled Xopenex. Supplement oxygen. 8. Hypertension. Due to low blood pressure, Norvasc has been discontinued. The patient is on beta blockade, metoprolol due to nonsustained ventricular tachycardia. 9. Cancer cachexia with protein-calorie malnutrition due to cancer cachexia. Body mass index (BMI) of 22.2. Concrete Block Molder has been consulted and Megace has been given. 10. Deep vein thrombosis (DVT) prophylaxis with Venodyne boots. 11. Thrombocytopenia. Admission platelet count 215, which has decreased to 103. Heparin-induced thrombocytopenia (HIT) panel is pending. 12. Bright red blood per rectum with maroon clots. Repeat CT abdomen and pelvis showed no obvious colonic mass. CEA has decreased to 2.6 from the March value of [address] León's office. The patient's hemoglobin and hematocrit will continue to be monitored. For now, does not require immediate red blood cell transfusion. Will check patient's international normalized ratio (INR). I have spoken with Dr. Romo, and due to the patient's poor respiratory status, not an immediate candidate to do endoscopy or colonoscopy. Will transfuse as needed.
[2017-07-14] VITALS (7 sets, daily range): BP systolic 121–128; BP diastolic 63–80
[2017-07-14] MEDS: LEVALBUTEROL 1.25 MG/0.5 ML CONCENTRATE NEB INH SCH ×6 (04:00→19:58)
[2017-07-14] MEDS: PIPERACILLIN/TAZOBACTAM SOD 4.5 GM in D5W MINI-BAG PLUS 50 ML IV SCH ×3 (05:01→20:50)
[2017-07-14 05:29] LABS: BASO % 0.3 % (0.0-1.0); EOS # 0.6 K/mm3 (0.0-0.50); LARGE UNSTAINED CELL # 0.2 K/mm3 (0.0-0.4); LARGE UNSTAINED CELL % 1.4 % (0.0-4.0); LYMPH # 1.1 K/mm3 (1.5-4.5); LYMPH % 6.7 % (24.0-44.0); MEAN CORPUSCULAR HEMOGLOBIN 29.2 pg (27.0-33.0); MEAN CORPUSCULAR HGB CONC 33.2 g/dl (32.0-36.5); MEAN CORPUSCULAR VOLUME 88.1 fl (80.0-96.0); MONO # 0.5 K/mm3 (0.0-0.8); MONO % 3.8 % (0.0-5.0); NEUTROPHILS # 10.9 K/mm3 (1.8-7.7); NEUTROPHILS % 82.9 % (36.0-66.0); PLATELET COUNT, AUTOMATED 108 k/mm3 (150-450); RED CELL DISTRIBUTION WIDTH 14.9 % (11.5-14.5); WHITE BLOOD COUNT 13.2 K/mm3 (4.0-10.0)
[2017-07-14 05:38] LABS: INR 1.26
[2017-07-14 05:47] LABS: ALBUMIN 1.7 GM/DL (3.2-5.2); ALBUMIN/GLOBULIN RATIO 0.52 (1.00-1.93); ALKALINE PHOSPHATASE 168 U/L (45-117); ALT/SGPT 10 U/L (12-78); ANION GAP 9 MEQ/L (8-16); AST/SGOT 28 U/L (15-37); BILIRUBIN,TOTAL 0.9 MG/DL (0.2-1.0); BLOOD UREA NITROGEN 13 MG/DL (7-18); CALCIUM LEVEL 7.5 MG/DL (8.8-10.2); CARBON DIOXIDE LEVEL 28 MEQ/L (21-32); CHLORIDE LEVEL 107 MEQ/L (98-107); CREATININE FOR GFR 0.84 MG/DL (0.55-1.02); GLOMERULAR FILTRATION RATE > 60.0 (>39); GLUCOSE, FASTING 84 MG/DL (83-110); POTASSIUM SERUM 4.2 MEQ/L (3.5-5.1); SODIUM LEVEL 144 MEQ/L (136-145)
[2017-07-14] MEDS: MEGESTROL SUSP 400 MG/10 ML UDC PO SCH (08:57)
[2017-07-14] MEDS: POTASSIUM CHLORIDE 10 MEQ SR TABLET PO SCH (08:58)
[2017-07-14] MEDS: SODIUM CHLORIDE 0.9% INJ 10 ML SYR IV SCH (08:58)
[2017-07-14] MEDS: METOPROLOL SUCC *XL* 25MG TAB (TopROL *XL*) PO SCH (08:58)
[2017-07-14] MEDS ORDERED: SALIVA SUBSTITUTE(MOUTHKOTE) BTL MT PRN (10:45)
[2017-07-14 10:53] LABS: REASON FOR REVIEW COMPREHENSIVE REVIEW
[2017-07-14 11:00] LABS: FERRITIN 911 NG/ML (8-252); PERCENT SATURATION 19.4 % (13.2-45.0); TOTAL IRON BINDING CAPACITY 108 UG/DL (250-450)
[2017-07-14] MEDS: DOCUSATE SODIUM 100 MG CAP PO SCH ×2 (11:37→21:00)
[2017-07-14] MEDS: MIRALAX *UNIT DOSE* 17GM PACKET PO SCH (11:37)
[2017-07-14] MEDS: ANUSOL HC 25MG SUPP PR SCH ×2 (11:37→20:50)
--- NOTE | 2017-07-14 21:02 | IPN ---
DATE: 07/14/2017 SUBJECTIVE: Patient seen and examined at the bedside. Chart has been reviewed. The patient has had no fevers. Is still with cough productive of white/yellow sputum. Decrease in appetite. No other big issues. No other issues from nursing overnight. Denies any chest pain, pressure, tightness. At baseline shortness of breath, fatigue and weakness. OBJECTIVE: VITAL SIGNS: Temperature 98.5, pulse 74, respiratory rate 18, blood pressure 122/80, 97% on two liters nasal cannula. GENERAL: The patient is awake, alert, and oriented to herself, place and time, answering questions appropriately. No use of respiratory accessory muscles. Able to complete full sentences. NECK: Trachea is midline. Neck is supple. Full range of motion. No cervical lymphadenopathy or thyromegaly. LUNGS: Diminished, crackles at the bases. HEART: S1, S2. Sinus rhythm. ABDOMEN: Soft, nontender, nondistended. Positive bowel sounds. EXTREMITIES: No cyanosis, clubbing or pitting edema. LABORATORY DATA: CBC, metabolic panel have been reviewed. No electrolyte abnormalities. Liver function tests reviewed. Albumin of 1.7. 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 Sees Dr. León, head cook/oncologist in [place]. History of chronic obstructive pulmonary disease (COPD) not oxygen dependent, chronic anemia of cancer, cachexia, who presents to the emergency room (ER) with shortness of breath, cough, fever over 3-4 days, found to have postobstructive pneumonia and new pulmonary nodule on CT chest, as well as known adrenal metastasis. The patient developed atrial fibrillation with rapid ventricular response (RVR), was in sinus rhythm. On telemetry had episodes of nonsustained ventricular tachycardia (V-TAC) with low potassium and magnesium which were supplemented. The patient did receive intermittent doses of amiodarone and low-dose beta blockade with some improvement. She had episodes of blood and blood clots with bowel movements. Repeat CT abdomen and pelvis were negative for colonic mass. Had episodes of electrolyte abnormalities which were supplemented. Echocardiogram appears to be normal. CURRENT ISSUES: 1. Postobstructive pneumonia, underlying metastatic colon cancer to the lungs which are now, as well as adrenal metastasis. Per Dr. León, the patient is carcinoembryonic antigen (CEA) significantly improved from March to May until now , 56, 25 and currently at 2.6, on IV antibiotic with intravenous Zosyn. Sputum culture that grew out Ochrobactrum anthropi and mold-like organism on Zosyn, and Vancomycin is discontinued. Infectious disease specialist has been consulted to discuss adequate coverage of this bacteria. No changes have been made. 2. Paroxysmal atrial fibrillation in sinus rhythm currently. Telemetry had episodes of nonsustained ventricular tachycardia with blood pressure well maintained. She has been given intermittent doses of IV amiodarone and responded well to small-dose beta blockade. Potassium and magnesium are kept optimal, potassium of four, magnesium at two. Echocardiogram is normal with adequate ejection fraction. No dyskinesia or akinesia, or wall motion abnormality. She is not a candidate for an automatic implantable cardioverter defibrillator (AICD) in light of recurrent colon cancer with bilateral adrenal metastasis and pulmonary metastasis, as well as not a candidate for long-term amiodarone due to significant lung issues, including left upper lobectomy, end-stage chronic obstructive pulmonary disease (COPD), new pulmonary metastasis from known colon cancer, recent postobstructive pneumonia due to risk of pulmonary fibrosis. 3. History of colon cancer, status post surgical resection, left upper lobectomy , chemotherapy, now with recurrence, with known history of adrenal metastasis and new metastasis to the lungs. Per Dr. León, patient's head cook/oncologist in [place], current chemotherapy had improvement with CEA improving from 56 to 25 to 2.6 with a recent check. The patient does have new metastatic lesions and was advised to continue treatment for postobstructive pneumonia. Once the patient is medically stable, then discharge home to followup with him as an outpatient to determine next course of action with PET scan, repeat CT chest, possibly changing chemotherapy regimen. I had specifically asked regarding hospice and comfort measures only, but Dr. León believes that the chemotherapy is currently working despite new pulmonary metastasis. The patient's functional status needs to be optimized prior to receiving further chemotherapy. She is currently not ambulatory and requiring help with activities of daily living. 4. Acute kidney injury. No history of chronic kidney disease. Patient had some improvement but developed acute kidney injury due to Lasix that she was given for respiratory distress. 5. Acute hypoxic respiratory failure requiring supplemental oxygen secondary to postobstructive pneumonia, metastatic colon cancer with new lesions in the lungs. Currently treated with DuoNeb, nebulizer, supplement oxygen, IV Zosyn for postobstructive pneumonia. 6. Hypoglycemia, resolved, due to decreased oral intake. Patient had been on D5W but developed respiratory distress due to IV fluids, which have now been discontinued. Encouraged to increase oral intake, on Megace. 7. Chronic obstructive pulmonary disease. No evidence of exacerbation. On scheduled Xopenex and as needed. Supplement oxygen. 8. Hypertension. Due to low blood pressure, Norvasc has been discontinued. The patient is on beta blockade with metoprolol due to nonsustained ventricular tachycardia. She did receive multiple doses of intravenous fluids previously due to low blood pressure. 9. Cancer cachexia with protein-calorie malnutrition. Body mass index (BMI) of 22. Utility Worker has been consulted, Megace has been given. 10. Deep vein thrombosis (DVT) prophylaxis with Venodyne boots. 11. Thrombocytopenia. Admission platelet count 215, decreased to 94 and 108. No active signs of bleeding. Most likely secondary to sepsis. Heparin-induced thrombocytopenia (HIT) panel is normal. No signs of HIT. 12. Bright red blood per rectum with maroon clots. Repeat CT abdomen and pelvis had no obvious mass. CEA decreased fro 56 in March to 2.6 currently. Hemoglobin and hematocrit continue to be monitored. I have spoken with Dr. Romo, and due to patient's poor respiratory status, not an immediate candidate to do any endoscopy. May subside on its own. MTDD
--- NOTE | 2017-07-14 21:12 | CR ---
DATE OF CONSULTATION: 07/13/2017 Asked to consult by hospitalist for evaluation of pneumonia in a patient with metastatic colon cancer. HISTORY OF PRESENT ILLNESS: Mrs. Meek is a 72-year-old female who was admitted with dizziness and weakness on July 07. The patient has a history of metastatic colon cancer, who presented to the emergency room with a 4-day history of progressive dizziness, weakness, anorexia, and decreased mobility. The patient had not been eating well with vomiting. She could not walk on the day of admission. The patient was having a mild cough and was noted to be dehydrated and confused. Her daughter stated that she was hot and cold with sweating, hallucinating at times. The patient was started on intravenous (IV) Zosyn, which she has received some since July 07, with improvement of her symptoms. On admission she had a chest CT, which showed evidence of metastatic pulmonary nodules with hilar fullness and possibility of postobstructive infiltrates in the left upper lung with suggestion of recurrent malignancy with large calcified bilateral adrenal masses as well consistent with metastasis. The patient has been afebrile throughout this admission. PAST MEDICAL HISTORY: 1. Colon cancer with metastasis to lung, bilateral adrenal metastasis as well. The patient has been diagnosed with colon cancer, on different chemotherapy since 2008. Her oncologist is Dr. León at [facility]. 2. History of chronic obstructive pulmonary disease (COPD). 3. Pneumonia. 4. Osteoarthritis. PAST SURGICAL HISTORY: 1. Left hip replacement. 2. Right upper lobectomy. 3. [id number]. 4. Right hemicolectomy. 5. Appendectomy. SOCIAL HISTORY: She used to smoke, quit in 2008 after smoking for 50 years. No alcohol use. She is . Lives with her . 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 FAMILY HISTORY: Father of congestive heart failure, mother of peritonitis. REVIEW OF SYSTEMS: The patient complains of being weak. She has no nausea, vomiting, or diarrhea. No chest pain. She has mild shortness of breath. She is chronically ill with poor appetite. ALLERGIES: No known drug allergies. MEDICATIONS: - Zosyn 4.5 grams IV every 8 hours - Lomotil one tablet by mouth every 4 as needed - Zofran 4 mg by mouth every 4 as needed - Megace 600 mg by mouth daily - Xopenex as needed - potassium 40 mEq by mouth daily LABORATORY DATA: White count on admission was 14.4 on July 07. Today white count is 13.3, hemoglobin 10, hematocrit 30.5, platelets 103, 83% neutrophils, 6% lymphocytes, 5% monocytes. Her platelet has dropped from admission at 215. Vancomycin trough done on July 10 was 25. Since then vancomycin has been discontinued. Heparin-induced antibodies were done on July 11 and are pending. Glucose ranged between 78-133. Microbiology: Blood cultures, two sets, are no growth after 5 days. Sputum culture has Ochrobactrum anthropi, which is a Gram negative, and some mold like organism. Influenza A and B are negative and methicillin-resistant Staphylococcus aureus (MRSA) screen is negative. IMAGING STUDY: Done on July 12 shows consolidation in the left upper lung zone and fullness in the left lobe again noted. No new infiltrates seen. PHYSICAL EXAMINATION: She is a frail looking female in no acute distress. She is alert and oriented, gives a fair history. Temperature is 98, pulse 85, respirations 18, blood pressure 122/56, oxygen saturation 98% on 2 liters nasal cannula. HEART: Normal S1, S2. DICTATION ENDS HERE. DENISSE
[2017-07-15] MEDS: LEVALBUTEROL 1.25 MG/0.5 ML CONCENTRATE NEB INH SCH ×7 (01:12→23:28)
[2017-07-15 03:56] VITALS: BP 124/73
[2017-07-15] MEDS: PIPERACILLIN/TAZOBACTAM SOD 4.5 GM in D5W MINI-BAG PLUS 50 ML IV SCH ×3 (05:42→21:09)
[2017-07-15 08:00] VITALS: BP 114/68
[2017-07-15] MEDS: MEGESTROL SUSP 400 MG/10 ML UDC PO SCH (08:53)
[2017-07-15] MEDS: POTASSIUM CHLORIDE 10 MEQ SR TABLET PO SCH (08:53)
[2017-07-15] MEDS: METOPROLOL SUCC *XL* 25MG TAB (TopROL *XL*) PO SCH (08:53)
[2017-07-15] MEDS: SODIUM CHLORIDE 0.9% INJ 10 ML SYR IV SCH (08:55)
[2017-07-15] MEDS: ANUSOL HC 25MG SUPP PR SCH ×2 (09:00→21:00)
[2017-07-15] MEDS: DOCUSATE SODIUM 100 MG CAP PO SCH ×2 (09:00→20:56)
[2017-07-15] MEDS: MIRALAX *UNIT DOSE* 17GM PACKET PO SCH (09:00)
[2017-07-15 12:00] VITALS: BP 120/54
--- NOTE | 2017-07-15 14:08 | IPN ---
DATE: 07/15/2017 SUBJECTIVE: Patient seen and examined at the bedside. Chart has been reviewed. The patient occasionally has unsustained ventricular tachycardia with two to three beats on telemetry. This morning, the patient has no new complaints of chest pain, pressure or tightness. She continues to have maroon-colored bloody bowel movements, treated for hemorrhoids. OBJECTIVE: VITAL SIGNS: Temperature 97.7, pulse 65, respiratory rate 18, blood pressure 124/73, 98% on 1 liter nasal cannula. GENERAL: The patient is awake, alert, and oriented times three, answering questions appropriately. No respiratory distress. Able to speak in full sentences. Crackles and occasionally wheezing but clear in the upper lobes. HEART: S1, S2. Sinus rhythm. No murmurs, rubs or gallops. ABDOMEN: Soft, nontender, nondistended. EXTREMITIES: No pitting edema. LABORATORY DATA: Reviewed. 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 Sees Dr. León, admittance attendant/oncologist in [place]. History of chronic obstructive pulmonary disease (COPD) not oxygen dependent, chronic anemia, cancer cachexia, who presents to the emergency room (ER) with 3-4 day history of shortness of breath, cough and fever, found to have postobstructive pneumonia and new pulmonary nodule on CT chest with known adrenal metastasis. The patient was also found to have atrial fibrillation with rapid ventricular response (RVR), which converted to sinus rhythm. On telemetry had episodes of nonsustained ventricular tachycardia (V-TAC) with low potassium and magnesium, which were supplemented. The patient did receive intermittent doses of amiodarone and low-dose beta blockade with some improvement. Episodes of blood clots with her bowel movements. Repeat CT of the abdomen and pelvis were negative for colonic mass. Echocardiogram was normal. CURRENT ISSUES: 1. Postobstructive pneumonia with underlying metastatic colon cancer to the lungs, which are new, as well as adrenal metastasis. Per Dr. León, the patient's carcinoembryonic antigen (CEA) has improved from March to May from 56 to 25 and currently at 2.6, on IV antibiotic with Zosyn. Sputum culture grew out Ochrobactrum anthropi and mold-like organism. Vancomycin has been discontinued. Infectious disease specialist has been consulted. No changes have been made. 2. Paroxysmal atrial fibrillation, in sinus rhythm currently. Telemetry had episodes of nonsustained ventricular tachycardia with blood pressure well maintained. Intermittent doses of IV amiodarone and responded with a small-dose of beta blockade. Potassium and magnesium are kept optimal, potassium of 4, magnesium at 2. Echocardiogram is normal with adequate ejection fraction. No dyskinesia or akinesia, or wall motion abnormality. She is not a candidate for an automatic implantable cardioverter defibrillator (AICD) in light of current colon cancer with bilateral adrenal metastasis and pulmonary metastasis, as well as not a candidate for long-term amiodarone due to significant lung issues with left upper lobectomy, end-stage chronic obstructive pulmonary disease (COPD), new pulmonary metastasis from known colon cancer, recent postobstructive pneumonia due to increased risk of pulmonary fibrosis. 3. History of colon cancer, status post resection, left upper lobectomy, chemotherapy, now with recurrence, with known history of adrenal metastasis and new metastasis to the lungs. Per Dr. León, patient's admittance attendant/oncologist in [place], current chemotherapy had improvement with CEA improving from 56 to 25 to 2.6. Despite new metastatic lesions, he has advised to continue treatment for postobstructive pneumonia. Once the patient is medically stable, then discharge home to followup with him as an outpatient to determine next course of action with PET scan, repeat CT chest, possibly changing chemotherapy regimen. I had specifically asked regarding hospice and comfort measures only, but Dr. León believes that the chemotherapy is currently working despite new pulmonary metastasis. The patient's functional status needs to be optimized prior to receiving further chemotherapy. She is currently not ambulatory and requiring help with activities of daily living. 4. Acute kidney injury. No history of chronic kidney disease. Patient had some improvement but developed acute kidney injury due to Lasix that she was given for respiratory distress. 5. Acute hypoxic respiratory failure requiring supplemental oxygen due to postobstructive pneumonia, metastatic colon cancer with new lesions in the lungs. Currently treated with DuoNeb, nebulizer, supplement oxygen, IV Zosyn for postobstructive pneumonia. 6. Hypoglycemia, resolved, due to decreased oral intake. Patient had been on D5W but developed respiratory distress due to IV fluids, which have now been discontinued. Encouraged to increase oral intake, on Megace. 7. Chronic obstructive pulmonary disease. No evidence of exacerbation. On Xopenex as needed. Supplement oxygen. 8. Hypertension. Due to low blood pressure, Norvasc has been discontinued. Currently on beta blockade with metoprolol due to nonsustained ventricular tachycardia. She did receive multiple doses of intravenous fluids previously due to low blood pressure. 9. Cancer cachexia with protein-calorie malnutrition. Body mass index (BMI) of 22. Spring Assembler has been consulted, Megace has been given. 10. Deep vein thrombosis (DVT) prophylaxis with Venodyne boots. 11. Thrombocytopenia. Admission platelet count 215, decreased to 94 and 108. No active signs of bleeding. Most likely secondary to sepsis or postobstructive pneumonia. Heparin-induced thrombocytopenia (HIT) panel is normal. No signs of HIT. 12. Bright red blood per rectum with maroon clots. Repeat CT had no obvious mass. CEA decreased from 56 to 25 to 2.6 currently. Hemoglobin and hematocrit continue to be monitored. Per Dr. Romo, treat for hemorrhoidal bleeding, therefore add MiraLAX, Colace, and Anusol suppositories. MTDD
[2017-07-15 16:00] VITALS: BP 118/62
[2017-07-15 20:00] VITALS: BP 113/60
[2017-07-16] MEDS: LEVALBUTEROL 1.25 MG/0.5 ML CONCENTRATE NEB INH SCH ×6 (00:54→23:43)
[2017-07-16 03:53] VITALS: BP 107/66
[2017-07-16] MEDS: PIPERACILLIN/TAZOBACTAM SOD 4.5 GM in D5W MINI-BAG PLUS 50 ML IV SCH ×3 (06:25→20:20)
[2017-07-16 08:00] VITALS: BP 116/61
[2017-07-16 08:16] LABS: MEAN CORPUSCULAR HEMOGLOBIN 29.2 pg (27.0-33.0); MEAN CORPUSCULAR HGB CONC 32.8 g/dl (32.0-36.5); MEAN CORPUSCULAR VOLUME 89.1 fl (80.0-96.0); RED CELL DISTRIBUTION WIDTH 15.1 % (11.5-14.5); WHITE BLOOD COUNT 11.6 K/mm3 (4.0-10.0)
[2017-07-16] MEDS: DOCUSATE SODIUM 100 MG CAP PO SCH ×2 (08:16→20:20)
[2017-07-16] MEDS: MEGESTROL SUSP 400 MG/10 ML UDC PO SCH (08:16)
[2017-07-16] MEDS: MIRALAX *UNIT DOSE* 17GM PACKET PO SCH (08:17)
[2017-07-16] MEDS: METOPROLOL SUCC *XL* 25MG TAB (TopROL *XL*) PO SCH (08:17)
[2017-07-16] MEDS: POTASSIUM CHLORIDE 10 MEQ SR TABLET PO SCH (08:17)
[2017-07-16] MEDS: ANUSOL HC 25MG SUPP PR SCH ×2 (08:18→20:20)
[2017-07-16] MEDS: SODIUM CHLORIDE 0.9% INJ 10 ML SYR IV SCH (08:18)
[2017-07-16 08:23] LABS: ANION GAP 10 MEQ/L (8-16); BLOOD UREA NITROGEN 9 MG/DL (7-18); CALCIUM LEVEL 7.7 MG/DL (8.8-10.2); CARBON DIOXIDE LEVEL 27 MEQ/L (21-32); CHLORIDE LEVEL 104 MEQ/L (98-107); CREATININE FOR GFR 0.73 MG/DL (0.55-1.02); GLOMERULAR FILTRATION RATE > 60.0 (>39); GLUCOSE, FASTING 106 MG/DL (83-110); SODIUM LEVEL 141 MEQ/L (136-145)
--- NOTE | 2017-07-16 09:38 | IPN ---
DATE: 07/16/2017 Patient seen and examined at the bedside. Chart has been reviewed. Patient has been afebrile. Telemetry unremarkable per nursing. Tolerating her diet well. Improving with the hemorrhoidal bleeding with current treatment. No dizziness, lightheadedness, nausea, vomiting, chest pain, pressure or tightness. VITAL SIGNS: 93% on room air to 96%, temperature 98, pulse 74, respiratory rate 22, blood pressure 107/66, Generally awake, alert and oriented times three, answering questions appropriately. No respiratory distress or use of respiratory accessory muscles. Able to speak in full sentences. HEENT pupils round and reactive to light and accommodation. Extraocular muscles intact. Normocephalic, atraumatic. Neck is supple. Full range of motion. No cervical lymphadenopathy, thyromegaly or pharyngeal erythema. Lungs diminished but clearto auscultation with occasionally wheezing. Heart S1, S2 sinus rhythm. Abdomen is soft, nontender, nondistended. Positive bowel sounds. Extremities have no pitting edema. Laboratory data and microbiology have been reviewed. 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 Sees Dr. León, cinder block mason/oncologist in [place]. History of chronic obstructive pulmonary disease (COPD) not oxygen dependent, chronic anemia, cancer cachexia, who presented to the emergency room (ER) with 3-4 day history of shortness of breath, cough and fever, found to have new metastatic lesions to the lungs with a postobstructive pneumonia and known adrenal metastasis. The patient was also found to have atrial fibrillation with rapid ventricular response (RVR) , which converted to sinus rhythm. On telemetry had episodes of nonsustained V- tach with low potassium and magnesium, which were supplemented and treated with intermittent doses of amiodarone low-dose beta blockade with some improvement. Patient had episodes of blood clots with her bowel movements, treated for hemorrhoidal bleeding. Hemoglobin and hematocrit remain stable. Repeat CT of the abdomen and pelvis were negative. Echocardiogram was normal. IMPRESSION: 1. Postobstructive pneumonia with underlying metastatic colon cancer to the lungs, which are new, as well as adrenal metastasis. Per Dr. León, the patient's CEA is improved from March to May from 56 to 25 and 2.6 currently here during this hospital stay. Patient had received IV Zosyn to complete a 10 day course. Sputum culture grew out Ochrobactrum anthropi and mold like organism. Vancomycin has been discontinued. Infectious disease specialist, Dr. Panda, has been consulted. No changes have been made. Patient will complete 10 full days then discontinue. 2. Paroxysmal atrial fibrillation, currently sinus rhythm. Telemetry had episodes of nonsustained V-tach during this admission with normal blood pressure and patient being asymptomatic. Potassium and magnesium are kept optimal with potassium at 4 or higher, magnesium at 2. Echocardiogram is normal with adequate ejection fraction. No dyskinesia or akinesia, or wall motion abnormality. She is not a candidate for AICD in light of current colon cancer with bilateral adrenal mets and pulmonary metastasis, as well as not a jail candidate for amiodarone due to significant lung issues with left upper lobectomy, end-stage chronic obstructive pulmonary disease (COPD), new pulmonary metastasis from known colon cancer and recent postobstructive pneumonia due to increased risk of pulmonary fibrosis. 3. History of colon cancer, status post resection, left upper lobectomy, chemotherapy, now with recurrence, with known adrenal metastasis with new metastasis to the lungs. Per Dr. León, patient's cinder block mason/oncologist in [place], current chemotherapy had improvement with CEA improving from 56 to 25 to 2.6. Despite new metastatic lesions, it is advised to continue treatment for postobstructive pneumonia. Once the patient is medically stable and discharged home, to followup with him as an outpatient to determine the next course of action with PET scan, repeat CT chest, possibly changing chemotherapy regimen. I specifically asked regarding hospice and comfort measures only, but Dr. León believes that the chemotherapy is currently working decreasing levels of CEA despite new pulmonary mets. The patient's functional status needs to be optimized prior to receiving further chemotherapy. Currently requiring help with activities of daily living. Physical therapy and occupational therapy prior to discharge. 4. Acute kidney injury. No history of chronic kidney disease. Had some improvement but developed acute kidney injury due to decrease in oral intake as well as Lasix. Currently with normal creatinine. Avoid nephrotoxins. Renally dose all medications and avoid dehydration. Encourage oral intake. 5. Hypertension. Due to low back pain Norvasc was discontinued, currently on metoprolol. Due to nonsustained V-tach, she did receive multiple doses of IV fluids due to low back pain during her hospital stay. 6. Chronic obstructive pulmonary disease. No exacerbation. On Xopenex as needed. Patient is saturating well on room air currently. 7. Acute hypoxic respiratory failure. Resolved. Secondary to postobstructive pneumonia, currently on room air. 8. Hypoglycemia, resolved, due to decreased oral intake. Patient had been on D5W but developed respiratory distress due to IV fluids, which have been discontinued. Encouraging oral intake and on Megace. 9. Deep vein thrombosis (DVT) prophylaxis with Venodyne boots. No Lovenox or heparin subcu due to hemorrhoidal bleeding with bright red blood and maroon clots. Repeat CT abdomen and pelvis showed no obvious mass. CEA decreased from 56 to 25 to 2.6. Hemoglobin and hematocrit remain stable. Per Dr. Romo treat for hemorrhoidal bleeding. I have MiraLAX, Colace and Anusol suppositories. 10. Thrombocytopenia secondary to sepsis and postobstructive pneumonia. Admission platelet count is 215 decreased to 94 and 108. The Heparin-induced thrombocytopenia (HIT) panel is normal. No signs of HIT. DISPOSITION: Patient is medially stable to transfer to the medical/surgical floor once the tenth day of Zosyn has been completed. Patient will need to be reevaluated by physical therapy for discharge home. MTDD
[2017-07-16 12:00] VITALS: BP 100/58
[2017-07-16 20:03] VITALS: BP 125/65
[2017-07-16] MEDS: SODIUM CHLORIDE 0.9% INJ 10 ML SYR IV PRN (20:19)
[2017-07-16 21:30] VITALS: BP 109/63
[2017-07-17 02:00] VITALS: BP 113/60
[2017-07-17] MEDS: ACETAMINOPHEN TAB 650MG DOSE (2X325MG) PO PRN ×3 (02:37→23:36)
[2017-07-17] MEDS: LEVALBUTEROL 1.25 MG/0.5 ML CONCENTRATE NEB INH SCH ×6 (04:43→23:32)
[2017-07-17] MEDS: PIPERACILLIN/TAZOBACTAM SOD 4.5 GM in D5W MINI-BAG PLUS 50 ML IV SCH ×3 (05:46→20:36)
[2017-07-17 06:00] VITALS: BP 126/74
[2017-07-17 08:17] LABS: MEAN CORPUSCULAR HEMOGLOBIN 29.1 pg (27.0-33.0); MEAN CORPUSCULAR HGB CONC 32.5 g/dl (32.0-36.5); MEAN CORPUSCULAR VOLUME 89.6 fl (80.0-96.0); RED CELL DISTRIBUTION WIDTH 15.1 % (11.5-14.5); WHITE BLOOD COUNT 9.4 K/mm3 (4.0-10.0)
[2017-07-17 08:31] LABS: ANION GAP 9 MEQ/L (8-16); BLOOD UREA NITROGEN 9 MG/DL (7-18); CALCIUM LEVEL 7.5 MG/DL (8.8-10.2); CARBON DIOXIDE LEVEL 29 MEQ/L (21-32); CHLORIDE LEVEL 104 MEQ/L (98-107); CREATININE FOR GFR 0.73 MG/DL (0.55-1.02); GLOMERULAR FILTRATION RATE > 60.0 (>39); GLUCOSE, FASTING 92 MG/DL (83-110); POTASSIUM SERUM 3.7 MEQ/L (3.5-5.1); SODIUM LEVEL 142 MEQ/L (136-145)
[2017-07-17] MEDS: ANUSOL HC 25MG SUPP PR SCH ×2 (09:00→20:34)
[2017-07-17] MEDS: MIRALAX *UNIT DOSE* 17GM PACKET PO SCH (09:00)
[2017-07-17] MEDS: DOCUSATE SODIUM 100 MG CAP PO SCH ×2 (09:00→20:36)
[2017-07-17] MEDS: POTASSIUM CHLORIDE 10 MEQ SR TABLET PO SCH (09:50)
[2017-07-17] MEDS: METOPROLOL SUCC *XL* 25MG TAB (TopROL *XL*) PO SCH (09:50)
[2017-07-17] MEDS: SODIUM CHLORIDE 0.9% INJ 10 ML SYR IV SCH (09:51)
[2017-07-17] MEDS: MEGESTROL SUSP 400 MG/10 ML UDC PO SCH (09:51)
[2017-07-17 14:00] VITALS: BP 100/58
--- NOTE | 2017-07-17 15:20 | IPN ---
DATE: 07/17/2017 72-year-old female seen at bedside resting comfortably. She denies any specific complaints. She does continue to have some intermittent nonproductive cough but no fever. No nausea, vomiting. No chest pain. OBJECTIVE: Temperature is 98.2, pulse 74, respiratory rate is 14 nonlabored, blood pressure 126/74, SpO2 is 95% on room air. General: The patient appears to be in no acute distress, alert and oriented, pleasant. HEENT: Unremarkable. Lungs: Diminished bibasilar breath sounds otherwise clear. Heart: Regular rhythm. Abdomen: Soft. Extremities: No edema. No calf tenderness. LABORATORY DATA: White count is 9.4, hemoglobin 8.7, platelets are 171. Sodium is 142, potassium 3.7, chloride 104, bicarb 29, anion gap 9, BUN 9, creatinine 0.73, glucose is 92, calcium 7.5. 1. Postobstructive/gram-negative pneumonia with sputum culture positive for Ochrobactrum species. She will need to complete a full 10 days of antibiotics as outlined previously by Dr. Panda. 2. Paroxysmal atrial fibrillation: Currently rate controlled in sinus. In light of her having colon cancer, she is not a good candidate for automatic implantable cardioverter-defibrillator (AICD) and due to pulmonary metastasis nodules she is not a candidate for amiodarone. At any rate, she appears to be better controlled with her ventricular rate. 3. History of colon cancer status post resection of left upper lobe lobectomy with chemotherapy, known adrenal metastasis and new lung metastasis. She follows with Dr. León. Apparently, her carcinoembryonic antigen (CEA) is improving and the goal was to optimize her for home discharge and she can followup with Dr. León as an outpatient. 4. Acute kidney injury: Medications have been renally dosed 5. Acute on chronic anemia likely related to recent illness and metastasis. 6. Hypertension stable. 7. Chronic obstructive pulmonary disease (COPD). No acute issues. 8. Acute hypoxic respiratory failure resolved likely secondary to postobstructive pneumonia. 9. Hypoglycemia resolved. 10. Thrombocytopenia secondary to sepsis postobstructive pneumonia and underlying history of cancer. 11. Deep venous thrombosis prophylaxis with thromboembolic deterrent stockings (TEDS) and sequentials. DISPOSITION: Will request physical therapy to re-evaluate her for home safety evaluation.
[2017-07-17] MEDS ORDERED: SODIUM CHLORIDE 0.9% INJ 10 ML SYR IV PRN (16:00)
[2017-07-17 20:30] VITALS: O2SAT 92
[2017-07-17] MEDS: LOMOTIL 2.5MG/0.025MG TABLET PO PRN (20:34)
[2017-07-17 21:07] LABS: MEAN CORPUSCULAR HEMOGLOBIN 28.9 pg (27.0-33.0); MEAN CORPUSCULAR HGB CONC 32.9 g/dl (32.0-36.5); MEAN CORPUSCULAR VOLUME 87.7 fl (80.0-96.0); RED CELL DISTRIBUTION WIDTH 15.4 % (11.5-14.5); WHITE BLOOD COUNT 10.3 K/mm3 (4.0-10.0)
[2017-07-17 21:33] LABS: ANION GAP 7 MEQ/L (8-16); BLOOD UREA NITROGEN 9 MG/DL (7-18); CALCIUM LEVEL 7.4 MG/DL (8.8-10.2); CARBON DIOXIDE LEVEL 27 MEQ/L (21-32); CHLORIDE LEVEL 106 MEQ/L (98-107); CREATININE FOR GFR 0.66 MG/DL (0.55-1.02); GLOMERULAR FILTRATION RATE > 60.0 (>39); GLUCOSE, FASTING 78 MG/DL (83-110); POTASSIUM SERUM 3.7 MEQ/L (3.5-5.1); SODIUM LEVEL 140 MEQ/L (136-145)
[2017-07-17 22:00] VITALS: BP 129/74
[2017-07-17] MEDS: SODIUM CHLORIDE 0.9% INJ 10 ML SYR IV PRN (22:03)
[2017-07-18 02:00] VITALS: BP 108/60
[2017-07-18] MEDS: LEVALBUTEROL 1.25 MG/0.5 ML CONCENTRATE NEB INH SCH ×3 (02:52→11:08)
[2017-07-18] MEDS: PIPERACILLIN/TAZOBACTAM SOD 4.5 GM in D5W MINI-BAG PLUS 50 ML IV SCH (05:20)
[2017-07-18 06:00] VITALS: BP 119/69
--- NOTE | 2017-07-18 06:27 | IPN ---
DATE: 07/17/2017 Marian seems to be doing very well. She is in good spirits. She is asking for her CD with CT scan reports to be burned so that she could take it to Dr. León in followup. She remains afebrile. Temperature is 98.2, pulse 74, respirations 14, blood pressure 100/58, oxygen saturation between 90-95% on room air. Heart: Normal S1, S2. No murmurs. Lungs: Few expiratory rhonchi bilaterally. Abdomen: Soft, nontender. Extremities: No edema. LABORATORIES: White count 10.3, hemoglobin 8.6, hematocrit 26.2, platelets 186. This morning white count was 9.4. Sodium 140, potassium 3.7, chloride 106, bicarbonate 26, BUN 9, creatinine 0.6, glucose 78, calcium 7.4, AST 28, ALT T10, alkaline phosphatase 168. Sputum culture had Ochrobactrum. MRSA screen was negative. Influenza A and B was negative. Stool Hemoccult was positive. IMPRESSION: 1. Probable postobstructive pneumonia on intravenous (IV) Zosyn. Patient to finish her 10 days of antibiotics today. She is doing much better, is no longer hypoxic. She could probably be discharged home without antibiotics. 2. History of colon cancer status post resection on chemotherapy with lung metastasis. The patient would like to have copies of current CT scan given to her prior to discharge. I have talked to Azalea. charge nurse on [address] and she will get that ready for her for tomorrow. 3. Respiratory failure has resolved. The patient is off oxygen saturating at 95%. PLAN: Hopefully could be discharged home tomorrow without antibiotics. DENISSE
[2017-07-18] MEDS: SODIUM CHLORIDE 0.9% INJ 10 ML SYR IV SCH (06:29)
[2017-07-18] MEDS: DOCUSATE SODIUM 100 MG CAP PO SCH (08:01)
[2017-07-18] MEDS: MIRALAX *UNIT DOSE* 17GM PACKET PO SCH (08:01)
[2017-07-18] MEDS: LOMOTIL 2.5MG/0.025MG TABLET PO PRN (08:03)
[2017-07-18 08:04] VITALS: BP 119/69
[2017-07-18] MEDS: ANUSOL HC 25MG SUPP PR SCH (08:04)
[2017-07-18] MEDS: POTASSIUM CHLORIDE 10 MEQ SR TABLET PO SCH (08:04)
[2017-07-18] MEDS: METOPROLOL SUCC *XL* 25MG TAB (TopROL *XL*) PO SCH (08:04)
[2017-07-18] MEDS: ACETAMINOPHEN TAB 650MG DOSE (2X325MG) PO PRN (08:04)
[2017-07-18] MEDS: MEGESTROL SUSP 400 MG/10 ML UDC PO SCH (08:05)
[2017-07-18] MEDS ORDERED: SODIUM CHLORIDE 0.9% INJ 10 ML SYR IV SCH (09:00)
[2017-07-18] MEDS ORDERED: TYLE325C PO (12:00)
[2017-07-18] MEDS ORDERED: METO1TAB32 PO (12:00)
--- NOTE | 2017-07-18 14:51 | DSES ---
DATE OF ADMISSION: 07/07/2017 DATE OF DISCHARGE: 07/18/2017 PRIMARY CARE PROVIDER: Hortensia Yadav NP CONSULTANTS: Dr. Panda, Dr. Severino. PROCEDURES: None. COMPLICATIONS: None. ADMISSION/DISCHARGE DIAGNOSES: 1. Postobstructive gram negative pneumonia with positive sputum cultures for Ochrobactrum species completed 10 days of antibiotics. 2. Paroxysmal atrial fibrillation, rate controlled. Not a good candidate for AICD due to pulmonary metastasis and other comorbidities. Not a good candidate for amiodarone. Please refer to cardiology's note. 3. History of colorectal cancer with metastatic spread to the lung and adrenal metastasis status post chemotherapy and follows with Dr. León. 4. Acute kidney injury resolved. 5. Acute on chronic anemia likely related to recent illness and underlying metastasis. 6. Hypertension. 7. Chronic obstructive pulmonary disease. 8. Acute hypoxic respiratory failure secondary to postobstructive pneumonia, resolved. 9. Hypoglycemia, resolved. 10. Thrombocytopenia secondary to sepsis and multifactorial underlying history of cancer. BRIEF HOSPITAL COURSE: Ms. Meek is a pleasant 72-year-old female who presented to the emergency department on 07/07/2017 admitted for generalized weakness, which was noted to become progressively worse, anorexia an cachexia, decreased mobility. Chest x-ray demonstrated a large area of consolidation in the left apex superior segment and remaining left lower lobe. New pulmonary nodules were noted on the right lung. Chest CT without contrast: Metastatic pattern, pulmonary nodules bilaterally, left hilar fullness with possible postobstructive infiltrate of the left upper lung zone suggestive of recurrent malignancy. Large calcified bilateral adrenal masses seen consistent with metastasis. CT of the abdomen and pelvis: Left colonic diverticulosis without CT evidence of diverticulitis. No obstruction or bowel mass. Seen right lower quadrant surgical anastomosis noted and bilateral calcification of the adrenal masses consistent with metastasis. New left pleural effusion with progressive consolidation of the left lower lobe again was noted. The patient did have a positive sputum culture for Ochrobactrum. Influenza A and B were negative as well as blood cultures remained negative. Subsequently, she did have a rapid ventricular rate with atrial fibrillation. 2D echo at the time when it was checked, did show sinus rhythm with some version grade 1 diastolic dysfunction 65% left ventricular ejection fraction. Dr. Severino was consulted. The patient did convert using metoprolol. Due to the underlying lung metastasis, Dr. Severino did not feel that she was a good candidate for amiodarone due to risk of pulmonary fibrosis and he did not feel that she would be a good candidate for an AICD placement due to her other issues. At any rate, she was placed on Rocephin and Zithromax for her lung infection initially IV Zosyn. After Dr. Panda was consulted antibiotics were modified and she did complete a 10-day course of antibiotics to cover for the positive sputum culture. On the date of discharge, she was felt to be doing relatively well. Physical therapy felt that she was safe for discharge with home services and arrangements were made for [facility]. For further information regarding intake physical, labs, diagnostics, please refer to the history and physical (H and P) as well hr business partner consultant notes from Dr. Severino and Dr. Panda. PHYSICAL EXAMINATION: Today Temperature is 98.1, pulse 70, respiratory rate 18, blood pressure 119/69, SpO2 is 93% on room air. GENERAL: The patient appears to be in no acute distress. She is alert and oriented. HEENT: Unremarkable. LUNGS: Clear. HEART: Regular rate and rhythm. ABDOMEN: Soft. EXTREMITIES: No edema. No calf tenderness. LABS: White count 10.3, hemoglobin 8.6, platelets 186, 000. Sodium 140, potassium 3.7, chloride 106, bicarbonate 27, anion gap 7, BUN 9, creatinine 0.66, glucose 78. DISCHARGE CONDITION: Good. DISPOSITION: Discharged to home with appropriate followup. DISCHARGE MEDICATIONS: - metoprolol succinate 25 mg daily - Tylenol 325 mg every 6 hours as needed - albuterol inhaler as directed - amiodarone 5 mg nightly - Imodium AD 2 mg tablet by mouth as needed diarrhea - Stivarga 120 mg daily DISCHARGE INSTRUCTIONS: Discharge to home. Activity as tolerated Followup with Hortensia Yadav in the next 7 days. Seek medical attention should symptoms progress or worsen. She voices understanding. Discharge took 35 minutes.
== END 2017-07-18 15:20 | disposition home health service (06) | DRG 177 ==
LOC: EDBD 11:55 → M ED 11:55 → M ED INP 16:52 → M PCU 20:55 → M MS5PR 07-17 00:12
PROVIDERS: ADMIT Internal Medicine; ATTEND Hospitalist
DX: J15.6 Pneumonia due to other Gram-negative bacteria (principal); J96.01 Acute respiratory failure with hypoxia; A41.9 Sepsis, unspecified organism; C78.00 Secondary malignant neoplasm of unspecified lung; J44.0 Chronic obstructive pulmonary disease with (acute) lower respiratory infection; C18.9 Malignant neoplasm of colon, unspecified; N17.9 Acute kidney failure, unspecified; R64 Cachexia; I47.2 Ventricular tachycardia; E46 Unspecified protein-calorie malnutrition; C79.70 Secondary malignant neoplasm of unspecified adrenal gland; E87.1 Hypo-osmolality and hyponatremia; D64.81 Anemia due to antineoplastic chemotherapy; I48.0 Paroxysmal atrial fibrillation; I11.9 Hypertensive heart disease without heart failure; D69.6 Thrombocytopenia, unspecified; K57.30 Diverticulosis of large intestine without perforation or abscess without bleeding; Z79.899 Other long term (current) drug therapy; M19.90 Unspecified osteoarthritis, unspecified site; Z96.642 Presence of left artificial hip joint; Z87.891 Personal history of nicotine dependence; I95.1 Orthostatic hypotension; E16.2 Hypoglycemia, unspecified; Z68.22 Body mass index [BMI] 22.0-22.9, adult; K64.8 Other hemorrhoids

== ENCOUNTER 2017-10-03 08:51 | Inpatient (IN) | payer MEDICARE ==
[~2017-10-03] VITALS: Ht 170.2 cm; Wt 55.5 kg
[~2017-10-03 08:51] MED LIST changes: +ALEV220T26 PO; +LOMO2.5T PO; +METO1TAB32 PO; +REGORAFENIB PO; +STIV40TA PO; +TYLE325C PO
[2017-10-03] MEDS: MEGESTROL SUSP 400 MG/10 ML UDC PO SCH (09:00)
[2017-10-03] MEDS ORDERED: ALLOPURINOL 100 MG TAB PO SCH (09:00)
[2017-10-03 09:56] LABS: BASO # 0.1 10^3/uL (0.0-0.2); BASO % 0.5 % (0.0-1.0); EOS # 0.3 10^3/uL (0.0-0.50); EOS % 1.4 % (0.0-3.0); IMMATURE GRANULOCYTE % 0.9 % (0-0); LYMPH # 2.5 10^3/uL (1.5-4.5); LYMPH % 12.5 % (24.0-44.0); MEAN CORPUSCULAR HEMOGLOBIN 29.3 pg (27.0-33.0); MEAN CORPUSCULAR HGB CONC 32.3 g/dl (32.0-36.5); MEAN CORPUSCULAR VOLUME 90.7 fl (80.0-96.0); MONO # 1.3 10^3/uL (0.0-0.8); MONO % 6.8 % (0.0-5.0); NEUTROPHILS # 15.3 10^3/uL (1.8-7.7); NEUTROPHILS % 77.9 % (36.0-66.0); PLATELET COUNT, AUTOMATED 439 10^3/uL (150-450); RED CELL DISTRIBUTION WIDTH 15.2 % (11.5-14.5); WHITE BLOOD COUNT 19.7 10^3/uL (4.0-10.0)
[2017-10-03 10:13] LABS: INR 1.04
[2017-10-03 10:16] LABS: ALBUMIN 3.3 GM/DL (3.2-5.2); ALBUMIN/GLOBULIN RATIO 0.59 (1.00-1.93); ALKALINE PHOSPHATASE 188 U/L (45-117); ALT/SGPT 111 U/L (12-78); ANION GAP 12 MEQ/L (8-16); AST/SGOT 34 U/L (7-37); BILIRUBIN,DIRECT 0.1 MG/DL (0.0-0.2); BILIRUBIN,TOTAL 0.6 MG/DL (0.2-1.0); BLOOD UREA NITROGEN 68 MG/DL (7-18); CALCIUM LEVEL 10.2 MG/DL (8.8-10.2); CARBON DIOXIDE LEVEL 16 MEQ/L (21-32); CHLORIDE LEVEL 98 MEQ/L (98-107); CREATININE FOR GFR 1.58 MG/DL (0.55-1.02); GLOMERULAR FILTRATION RATE 34.3 (>39); GLUCOSE, FASTING 107 MG/DL (83-110); SODIUM LEVEL 126 MEQ/L (136-145); TOTAL PROTEIN 8.9 GM/DL (6.4-8.2)
[2017-10-03] MEDS ORDERED: DEXTROSE 50% 50 ML SYRINGE IV STA (10:26)
[2017-10-03] MEDS ORDERED: HumuLIN R (REGULAR) INSULIN (NovoLIN R) **100U/ML** PER UNIT SC STA (10:26)
[2017-10-03] MEDS ORDERED: SOD POLYSTYRENE SULFONATE SUSP 15 GM/60 ML UD PO ONE (10:30)
[2017-10-03] MEDS ORDERED: ALBUTEROL SULFATE 2.5 MG/0.5 ML INH NEB SOLN NEB ONE (10:30)
[2017-10-03] MEDS ORDERED: SODIUM BICARBONATE 8.4% INJ 50 ML SYRINGE IV STA (10:33)
[2017-10-03] MEDS ORDERED: CALCIUM CHLORIDE 10% 1 GM in D5W 100 ML IV ONE (10:45)
[2017-10-03] MEDS ORDERED: CALCIUM GLUCONATE 1,000 MG in D5W MINI-BAG PLUS 100 ML IV ONE ×2 (10:45→11:00)
[2017-10-03] MEDS ORDERED: HumuLIN R (REGULAR) INSULIN (NovoLIN R) **100U/ML** PER UNIT IV STA (11:07)
--- NOTE | 2017-10-03 11:21 | REP ---
Clinical: Left lower chest pain. Comparison: 07/07/2017. Findings: Acute finding includes cavitary lesion and/or chronic focal pneumothorax at the left apex is appreciated with irregular pleural thickening and irregular internal debris versus chronically scarred left apical pulmonary parenchymal along with associated small fluid level (images 13 - 40). Irregular left upper lobe pleural thickening and elements of chronic-appearing consolidation are also identified. Bilateral COPD and emphysematous changes along with scattered bronchiectasis are chronic in appearance and similar to prior examination. Multiple scattered pulmonary nodules and mass lesions are appreciated - the largest of which is noted in the subpleural posterior right lower lobe and measures 2 cm maximal diameter which remain relatively similar to prior examination. Atherosclerotic changes to the thoracic aorta and coronary arteries remains relatively stable. No evidence for cardiomegaly or significant pericardial effusion. Subtle reactive adenopathy cannot be excluded and is incompletely evaluated due to lack of enhancement. Large partially calcified bilateral adrenal mass lesions are unchanged. Surrounding musculoskeletal structures demonstrate degenerative changes without focal osseous abnormality. Impression: 1. New acute finding includes left apical chronic pneumothorax and/or cavitary lesion with small amount of layering fluid and internal debris. 2. Diffuse chronic changes throughout the bilateral lung sam as well as scattered pulmonary nodules and mass lesions measuring up to 2 cm which remain relatively stable compared to 07/07/2017. Signed by Carlos Alberto Mantilla MD 10/03/2017 11:13 A
[2017-10-03] MEDS ORDERED: MORPHINE 2 MG/ML 1ML SYRINGE IV ONE (12:00)
[2017-10-03] MEDS ORDERED: ONDANSETRON 4MG/2ML VIAL (J2405) IV ONE (12:00)
[2017-10-03] MEDS ORDERED: NS 1,000 ML IV SCH (13:00)
[2017-10-03] MEDS ORDERED: LEVAINH INH (13:24)
[2017-10-03] MEDS ORDERED: TYLE500T78 PO (13:24)
[2017-10-03] MEDS ORDERED: MEGE400SUS PO (13:24)
[2017-10-03] MEDS ORDERED: IPRATROPIUM 0.5MG/ALBUTEROL 2.5MG INH SOL UD 3ML (DUONEB)(J7620) NEB PRN (13:30)
[2017-10-03] MEDS ORDERED: ONDANSETRON 4MG/2ML VIAL (J2405) IV PRN (13:45)
[2017-10-03 13:51] LABS: ANION GAP 11 MEQ/L (8-16); BLOOD UREA NITROGEN 68 MG/DL (7-18); CALCIUM LEVEL 10.5 MG/DL (8.8-10.2); CARBON DIOXIDE LEVEL 22 MEQ/L (21-32); CHLORIDE LEVEL 99 MEQ/L (98-107); CREATININE FOR GFR 1.56 MG/DL (0.55-1.02); GLOMERULAR FILTRATION RATE 34.8 (>39); GLUCOSE, FASTING 85 MG/DL (83-110); PHOSPHORUS LEVEL 6.1 MG/DL (2.5-4.9); SODIUM LEVEL 132 MEQ/L (136-145); T UPTAKE 32 % (30-39); THYROXINE (T4) 8.3 UG/DL (4.5-12.0); URIC ACID 9.4 MG/DL (2.6-6.0)
[2017-10-03 13:54] LABS: POTASSIUM SERUM 6.3 MEQ/L (3.5-5.1)
[2017-10-03] MEDS: IPRATROPIUM 0.5MG/ALBUTEROL 2.5MG INH SOL UD 3ML (DUONEB)(J7620) NEB SCH ×2 (14:00→19:50)
[2017-10-03] MEDS: HEPARIN SOD (PORCINE) 5000 UNITS/ML VIAL SC SCH ×2 (14:00→21:25)
--- NOTE | 2017-10-03 14:26 | REP ---
ULTRASOUND ABDOMEN: Real-time sonographic evaluation of the abdomen performed. The gallbladder is moderately distended. No gallstones are seen and there is no gallbladder wall thickening. There is no free fluid in the abdomen. No intrahepatic or extrahepatic biliary dilatation is seen, the common bile duct measuring 4 mm in diameter. The liver and pancreas demonstrate no gross mass, pancreas not optimally seen due to overlying bowel gas. The spleen is normal in size with no intrinsic abnormality. Length is 9.8 cm. Right kidney is somewhat atrophic. Right kidney measures 8.8 x 4.7 x 4.1 cm, left kidney 9.6 x 4.5 x 5.1 cm. There is no hydronephrosis, renal mass or nephrolithiasis. Abdominal aorta is normal in caliber with no aneurysm, maximum AP diameter proximally 2.6 cm, mid aspect 2.1 cm and distally 1.4 cm. IMPRESSION: No acute abnormalities as discussed in detail above. Signed by Ryan Austin MD 10/04/2017 04:28 P
[2017-10-03] MEDS ORDERED: VANCOMYCIN HCL 1,000 MG, VIAL MATE ADAPTER 1 EACH in D5W 250 ML IV SCH (14:30)
[2017-10-03] MEDS ORDERED: LEVOTHYROXINE 100 MCG (0.1MG) VIAL IV ONE (15:00)
[2017-10-03 15:44] LABS: ABG BASE EXCESS -9.2 (-2.0-2.0); ABG HCO3 14.3 MEQ/L (22.0-26.0); ABG PARTIAL PRESSURE CO2 24.7 mmHg (35.0-45.0); ABG STANDARD HCO3 17.1 MEQ/L (22.0-26.0); ABG TOTAL CO2 15.1 MEQ/L (23.0-31.0); ABG pH (ARTERIAL) 7.381 UNITS (7.350-7.450)
--- NOTE | 2017-10-03 16:18 | IPNPDOC ---
Text Note Date of Service The patient was seen on 10/03/17. NOTE C diff +, started vanco PO, vanco discontinued. consider ID consult am. Patient may or may not need merro for cavitary lung Lesion with necrotizing pna VS,Fishbone, I+O VS, Fishbone, I+O Laboratory Tests 10/03/17 09:44 Red Blood Count 4.09, Mean Corpuscular Volume 90.7, Mean Corpuscular Hemoglobin 29.3, Mean Corpuscular Hemoglobin Concent 32.3, Red Cell Distribution Width 15.2 H, Neutrophils (%) (Auto) 77.9 H, Lymphocytes (%) (Auto) 12.5 L, Monocytes (%) (Auto) 6.8 H, Eosinophils (%) (Auto) 1.4, Basophils (%) (Auto) 0.5, Neutrophils # (Auto) 15.3 H, Lymphocytes # (Auto) 2.5, Monocytes # (Auto) 1.3 H , Eosinophils # (Auto) 0.3, Basophils # (Auto) 0.1 10/03/17 13:07 Calcium Level 10.5 H, Phosphorus Level 6.1 H, Total Creatine Kinase 37 Vital Signs Date Time Temp Pulse Resp B/P (MAP) Pulse Ox O2 Delivery O2 Flow Rate FiO2 10/03/17 15:51 98 10/03/17 15:41 97.9 20 108/72 (84) 10/03/17 14:21 98 10/03/17 08:55 Room Air I&O- Last 24 Hours up to 6 AM 10/04/17 06:00 Intake Total 110 ml Balance 110 ml VINOD BURGOS MD Oct 03, 2017 16:18
--- NOTE | 2017-10-03 16:26 | HPE ---
DATE OF ADMISSION: 10/03/2017 PRIMARY CARE PROVIDER: Hortensia Yadav under Dr. Niels Chopra. ONCOLOGIST: Dr. León. THORACIC SURGEON: Dr. Tamia Em IN HOUSE THORACIC SURGEON: Dr. Karsten Suarez EMPLOYMENT SPECIALIST: Dr. Tabares CHIEF COMPLAINT: Left sided chest pain. HISTORY OF PRESENT ILLNESS: This is a 72-year-old female patient with underlying medical history of advanced colorectal cancer with metastases to the lung diagnosed in 2008, had resection in 2008 with 12 cycles of chemotherapy with progression in June 2012 to left upper lobe, moderately differentiated adenocarcinoma. There was also concern for metastases to the adrenal gland. Currently receiving Stivarga. Also with necrotizing pneumonia in June 2017, chronic diarrhea, hypertension, who presented to the hospital with two weeks of progressively worsening left sided sharp chest pain under the lower rib and radiating up to the left shoulder and as per patient is worsened with movement. It is sharp. At its worse is 10/10 that is progressively worsening. Also reported for the past 1 day the patient started having recurrent diarrhea and reported progressive weight loss, reported coughing with cecil colored sputum with blood tinge. Denies any fever, chills, sick contacts, nausea, vomiting, abdominal pain. Last bowel movement was this morning and was watery. Denies any shortness of breath. The patient presented to the hospital and was found to have hyperkalemia with new left bundle branch block, found to be in acute kidney injury, also hyponatremia. ALLERGIES: No known drug allergies. PAST MEDICAL HISTORY: 1. 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 2. Hypertension. 3. History of necrotizing pneumonia. 4. Hypertension. 5. Diarrhea. 6. Paroxysmal atrial fibrillation. PAST SURGICAL HISTORY: 1. Tonsillectomy. 2. Appendectomy. 3. Tubal ligation. 4. Left hip replacement. 5. Colectomy. 6. Left lower lobe lobectomy. FAMILY HISTORY: Father with heart disease, congestive heart failure (CHF). Mother with hypertension, hypothyroidism. SOCIAL HISTORY: Quit smoking in 2008, one pack per day for 30 years. Occasional alcohol, maybe once a week. No illicit drugs. REVIEW OF SYSTEMS: Reported left sided chest pain, poor oral intake, occasional diarrhea, weight loss, coughing productive of pearly colored sputum. All other review of systems negative. HOME MEDICATIONS: - acetaminophen 1000 mg by mouth four times a day as needed - Xopenex inhalation four times a day as needed - Imodium 2 mg by mouth as needed - Megace 100 mg by mouth daily - Stivarga 80 mg by mouth daily PHYSICAL EXAMINATION: GENERAL: The patient is frail, in no acute distress. VITAL SIGNS: Temperature 96.8, pulse 82, respirations 20, blood pressure 127/97, pulse oximetry 96% on room air. GENERAL: The patient is frail and in no acute distress. HEENT: Normocephalic, atraumatic. PULMONARY: Diminished breath sounds in the left upper lobe. No wheeze. CARDIAC: Regular. S1, S2. ABDOMEN: Soft, nontender. Positive bowel sounds. EXTREMITIES: No clubbing, cyanosis or edema. NEUROLOGIC: No focal deficit. LABORATORY DATA: WBC 19.7, hemoglobin and hematocrit 12/37.1, platelets 439. Chemistry: Sodium 126, potassium 7, chloride 98, bicarbonate 16, BUN 68, creatinine 1.58. EKG showed left bundle branch block, sinus rhythm at 91. ASSESSMENT AND PLAN: This is a 75-year-old female patient with underlying medical history of paroxysmal atrial fibrillation, metastatic colon cancer stage IV with metastases to the lung, left upper lobe and bilateral, also adrenal gland, receiving experimental regimen, also necrotizing pneumonia in June 2017, hypertension, chronic diarrhea, who presented with progressively worsening over the past 2 weeks of left sided chest pain and found to be in hyperkalemia. 1. Left sided chest pain. CT scan of the lung appreciated showing cavitary lesions. Case discussed with Dr. Suarez and Dr. Tabares, possibly secondary to necrotizing pneumonia given leukocytosis. Cultures were sent, sputum culture, C-reactive protein. The patient is empirically started on meropenem and vancomycin pending cultures and evaluation. CT scan appreciated. Followup pulmonary and thoracic surgery for further recommendations. When the patient is ready for discharge, Dr. León needs CT scan CDs for comparison. Case discussed with Dr. León, patient's cotton grower/oncologist. 2. Hyperkalemia with acute kidney injury. The patient is baseline with normal kidney function. Differential diagnosis, including secondary to hypothyroidism versus tumor lysis syndrome. Case discussed with Dr. León. The patient's chemo regimen medication does not cause hyperkalemia but okay to hold for now. Nephrology has been consulted. The patient has been given a cocktail, which includes insulin D50, as well as sodium bicarbonate. Followup fingerstick every 1 hour for the next couple of hours, as well as calcium gluconate. Nephrology has been consulted. IV fluids. The patient is hypovolemic. Urine study has been sent. Ultrasound of renal. ABG appreciated. 3. Hyponatremia. The patient is hypovolemic and hyponatremic. Urine study has been sent. IV fluids. Serial basic metabolic panel. Nephrology has been consulted. 4. Hypothyroidism. Synthroid has been restarted. We will need to repeat thyroid function tests for further evaluation. 5. Left sided chest pain. Possibly secondary to cavitary lesion. EKG shows left bundle branch block. We will order serial cardiac enzymes. Repeat EKG. Telemetry monitoring. Case discussed with pulmonology and thoracic surgery. Pain medication as prescribed. 6. Deconditioning and failure to thrive. Megace. Encourage oral. Ensure has been given. 7. Chronic obstructive pulmonary disease (COPD). The patient is not having any wheeze. On 1 liter oxygen intermittently. Followup oxygen saturation. Nebulizer treatment as needed. 8. History of paroxysmal atrial fibrillation. The patient is not on any beta kervin at home. We will monitor closely. Telemetry monitoring. The patient is not on anticoagulation as well secondary to bleeding history. 9. Deep vein thrombosis (DVT) prophylaxis. The patient is kept on heparin subcutaneously given oncologic condition and high risk for DVT. DISPOSITION: Pending further workup, clinical improvement. The patient is admitted to intensive care unit (ICU) given severe hyperkalemia with EKG changes.
[2017-10-03] MEDS: (RENVELA) SEVELAMER **CARBONate** 800 MG TAB PO SCH (18:00)
[2017-10-03 18:12] LABS: CALCIUM LEVEL 9.6 MG/DL (8.8-10.2); CREATININE FOR GFR 1.51 MG/DL (0.55-1.02); GLOMERULAR FILTRATION RATE 36.2 (>39)
[2017-10-03 18:14] LABS: POTASSIUM SERUM 6.4 MEQ/L (3.5-5.1)
[2017-10-03 18:15] VITALS: BP 127/70
[2017-10-03] MEDS ORDERED: SODIUM BICARBONATE 75 MEQ in NS 0.45% 1,000 ML IV SCH (18:30)
--- NOTE | 2017-10-03 19:35 | CR ---
DATE OF CONSULTATION: 10/03/2017 REQUESTING PHYSICIAN: Dr. Shanelle Young REASON FOR CONSULTATION: Acute kidney injury with hyperkalemia and hyponatremia in the setting of Clostridium (C) difficile diarrhea. CHIEF COMPLAINT: One-day history of recurrent, very watery diarrhea associated with lightheadedness and dizziness. HISTORY OF PRESENT ILLNESS: Ms. 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 She also reports a prior history of hypertension, however, states that she no longer requires any antihypertensive medications at home. The patient was first diagnosed with colon cancer in 2008 and reports local resection at that time and subsequently was on intravenous (IV ) infusions of chemotherapy. In 2011 she was found to have metastasis to the left lung as well as to the adrenal gland. Her oncologist is Dr. León in [place] , and she states that the last few months she has been on Stivarga with fluctuating doses prescribed, but she denies any IV chemotherapy in the recent past. The patient has been steadily deconditioning and has had recurrent hospitalizations. She notes ongoing weight loss over the past several months and recent recurrent hospitalizations, including hospitalization in June for pneumonia. The patient states that she was in her usual state of health until about 1 day ago, when she developed recurrent large-volume watery diarrhea, more than 5 episodes reported, that kept her up at night. She said after the first few episodes of diarrhea she noted that she was getting very lightheaded and dizzy when she stood up and was complaining of presyncopal symptoms. She also noted left-sided chest pain that is very sharp and radiates to the left shoulder. Patient also notes chronic cough with sputum that is blood tinged. She also complains of nausea, so-so appetite. In the emergency room the patient was noted to be tachycardic, and EKG demonstrated a new left bundle branch block. Labs revealed acute kidney injury with hyperkalemia, hypercalcemia, hyperuricemia, hyperphosphatemia, leukocytosis , hyponatremia, and markedly elevated thyroid-stimulating hormone (TSH). The patient was started on normal saline. She denies any shortness of breath at rest or with exertion. She denies a prior history of hyponatremia or hyperkalemia. She denies any potassium supplements. She denies any use of nonsteroidal anti-inflammatory drugs (NSAIDs). She denies any sick contacts. PAST MEDICAL HISTORY: 1. Stage IV colon cancer with metastasis to the lungs and to the adrenal gland. 2. History of hypertension, although she is no longer requiring any antihypertensive medications. 3. History of necrotizing pneumonia. 4. Chronic diarrhea with recent worsening for 1 day. 5. History of paroxysmal atrial fibrillation, not on any anticoagulation. 6. Weight loss, on appetite stimulant. PAST SURGICAL HISTORY: 1. Colectomy in 2008. 2. Left lower lobe lobectomy in 2011. 3. Left hip replacement. 4. Tubal ligation. 5. Appendectomy. 6. Tonsillectomy. ALLERGIES: No known allergies. FAMILY HISTORY: Reports a history of congestive heart failure (CHF) and heart disease in her father and a history of hypertension in the mother. SOCIAL HISTORY: She is an ex-smoker. Quit when she was diagnosed with colon cancer. Reports occasional alcohol and no illicit drugs. Lives at home with her . HOME MEDICATIONS: - Tylenol as needed - Xopenex inhalation four times a day as needed - Imodium 2 mg by mouth as needed - Megace 100 mg by mouth daily - Stivarga 80 mg by mouth daily REVIEW OF SYSTEMS: Positive for chronic fatigue, weakness, chronic diarrhea, poor oral intake, ongoing weight loss, chronic cough, productive with blood-tinged sputum. Review of systems also positive for worsening diarrhea, left-sided chest pain. Remainder of review of systems is negative. PHYSICAL EXAMINATION: Temperature 97.6, pulse 82, respiratory rate 18, blood pressure 108.77, saturating 93-97% on room air. GENERAL: The patient is seen in the emergency room. Her is at bedside. She is lying in the stretcher in no acute distress. Appears comfortable. She is frail. HEAD AND NECK: Normocephalic. The extraocular muscles are intact. The ears and nose are unremarkable. Her tongue is moist. Neck is supple. There is no jugular vein distention. CARDIAC: Regular, S1, S2. There is no edema in the lower extremities or in the dependent area. The radial pulse is palpable. LUNGS: There are some diminished breath sounds on the left. The bases are clear to auscultation. She is comfortable on room air. There is no accessory muscle use. ABDOMEN: Soft, nontender. There are positive bowel sounds throughout. EXTREMITIES: There is no edema or cyanosis. NEUROLOGIC: There are no focal deficits. The patient is oriented times four. She is appropriately interactive and conversational. PSYCHIATRIC: Appropriate mood and affect. LABORATORY DATA: White count 19.7, hemoglobin 12, platelets 439. Sodium at 9 a.m.126, repeat sodium at 1 p.m 132, repeat sodium at 5 p.m. 129, all with normal glucose. Potassium 7, improved to 6.4 at present with no hemolysis. Bicarbonate 16 on the first chemistry and currently 21 with a non-gapped acidosis. Creatinine 1.5, BUN 70. Serum osmolality 298, lactic acid 2.0, uric acid 9.4, calcium corrected 10.8, phosphorus 6.1. ALT 111, AST 34, CRP 15. TSH 59. Normal T3 and T4. Urine specific gravid 1024. ABG: The pH 7.38 with a pcO2 of 24 and a pO2 of 99. Microbiology: Stool gastrointestinal (GI) polymerase chain reaction (PCR) positive for C. difficile. IMAGING: CT of the chest October 03 without contrast: Left apical chronic pneumothorax and cavitary lesion. Diffuse chronic changes throughout the bilateral lung sam and scattered pulmonary nodules and mass lesions. Abdominal ultrasound October 03: Right kidney 8.8 cm, left kidney 9.6 cm. No hydronephrosis or nephrolithiasis. INPATIENT MEDICATIONS: The patient was receiving normal saline. I have switched her IV fluids to half-normal saline with 50 mEq of sodium bicarbonate at 150 mL an hour. She is receiving meropenem 1 gram IV every 12 and vancomycin 250 mg by mouth every 6. She received a one-time dose of sodium bicarbonate 50 mEq IV. She also received a one-time dose of Kayexalate 15 grams times one and a one-time dose of calcium gluconate 1 gram IV. She continues on albuterol nebulizers around the clock every 6 hours, allopurinol 200 mg by mouth daily, heparin 5000 units subcutaneous every 8, levothyroxine 75 mcg by mouth daily, and received a one-time dose of levothyroxine 40 mcg IV, megestrol 400 mg by mouth daily, Zofran as needed, Renvela 1600 mg by mouth with meals. ASSESSMENT AND PLAN: This is a 72-year-old female with advanced colorectal cancer with metastasis to lung and adrenal gland who presents with a 1-day history of recurrent large-volume watery diarrhea and is found to have acute kidney injury (CARINA) with multiple electrolytes disturbances, including hyponatremia, hyperkalemia, hyperuricemia, hyperphosphatemia, hypercalcemia. PROBLEMS: 1. Acute kidney injury with multiple electrolyte disturbances. The patient likely has an acute kidney injury secondary to hemodynamic-mediated tubular injury in the setting of C. difficile diarrhea. She needs close monitoring of her electrolytes, particularly her sodium and potassium for basic metabolic panel (BMP) every 4-6 hours, and I have instructed the nursing staff to call me with the results. For her hyperkalemia, she received the usual cocktail of insulin, D50, Kayexalate, bicarbonate push, and albuterol. Given that she has a non- gapped acidosis, I will continue her on bicarbonate-containing fluids for correction of acidosis and also hyperkalemia. Given her hyperuricemia and hyperphosphatemia while she is on concurrent chemotherapy, there is also a question of tumor lysis syndrome; however, these electrolyte disturbances can also be seen in a pre- renal volume-depleted state with CARINA. In any case, the management will continue with aggressive intravenous (IV) hydration. The patient reports she is making urine, but there is none recorded. We will need Rodriguez catheter for strict monitoring of her output. If the patient does not start making adequate urine with IV fluid hydration, then she would likely require dialysis. At present we will fluid challenge her, repeat electrolytes, and monitor urine output. She is going to the intensive care unit. 2. Non-gapped metabolic acidosis with respiratory compensation. The patient is likely acidotic secondary to diarrhea and decremental decrease in GFR. I will add a small amount of bicarbonate to her IV fluids for correction of acidosis and for correction of hyperkalemia. She has started on treatment for C. difficile. 3. Hyponatremia. Her sodium at 9 a.m. was 126. Goal correction in 24 hours will be 6-8 mEq. I have decided to put her on half-normal saline with 50 mEq of sodium bicarbonate, which is mildly hypotonic normal saline so that she does not overly correct her sodium. She is asymptomatic from her hypovolemic euosmolar hyponatremia. Noted TSH. Check cortisol. 4. Hypercalcemia. Corrected calcium of about 10.8, likely secondary to intravascular volume depletion. Would avoid giving the patient further IV calcium at this time. 5. Hyperuricemia, likely secondary to acute kidney injury and volume depletion. Alternative possibility tumor lysis. In any case, continue with IV fluids and will start her on allopurinol 200 mg by mouth daily. 6. Hyperphosphatemia, again likely secondary to acute kidney injury. An alternative explanation tumor lysis syndrome. Continue with IV fluids and will start the patient on oral phosphate binder. 7. Leukocytosis with C. difficile diarrhea. The patient has been started on oral vancomycin. 8. Cavitary lung lesion with history of necrotizing pneumonia. At present, the patient is on IV meropenem. 9. Hypothyroidism with increased thyroid-stimulating hormone (TSH). The patient is resumed on Synthroid and received one dose IV. May also be playing a role in her hyponatremia. Morning cortisol has also been ordered for the morning. Plan of care is discussed with Dr. Shanelle Young. DENISSE
[2017-10-03] MEDS ORDERED: MORPHINE 2 MG/ML 1ML SYRINGE As Ordered ONE (19:48)
--- NOTE | 2017-10-03 19:49 | CR ---
DATE OF CONSULTATION: 10/03/2017 REASON FOR CONSULTATION: Cavitary lung lesion. Marian is a 72-year-old female presenting to the emergency department with severe pain times 2 weeks. She states that the pain starts around her left hip, travels up her left abdomen, and wraps around to her back shoulder. When this happens, she states that there is some limpness in her left arm that she appreciates. She states that the pain has gotten progressively worse over the last 2 weeks, especially with exertion. She states that the pain will shoot up her side and into her back, and at times it will be so bad that she will pass out. She states that sometimes the pain can subside when she leans on the couch with her arm underneath her, putting pressure on her side. She states that she has also been experiencing some dry heaves with nausea, however, is not vomiting. She also states that she has diarrhea periodically. She did have one episode last night; however, this is not a frequent occurrence. She also states that she has numbness in her hands, tongue, and feet. She states that she has had neuropathy since beginning chemotherapy. She will also get clammy and have sweating, especially on her face and chest with these episodes of pain. She also describes shortness of breath, which sounds like hyperventilation when these episodes occur, and states that it feels like a band is running across her torso. Patient has a history of colon cancer that was diagnosed and resected in 2008, with subsequent metastasis to the left lower lobe diagnosed in 2011 for which she underwent a lobectomy. 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 She was also hospitalized in 2013 for community-acquired pneumonia. She quit smoking in 2008, and had smoked 1 pack per day for 30 years prior to that. She does state that at baseline she has a chronic cough with white sputum production, and that a week ago she did cough up some phlegm with bright red blood on it, but that was the only time and has since resolved. Per her medical records she has been treated for acute bronchitis multiple times, and was seen by Dr. Phillips in 2011 for emphysema. REVIEW OF SYSTEMS: Patient denies vomiting, headache, constipation, fevers, chills, changes in hearing, wheezing, cough, decrease in range of motion. She does state that her right eye has been foggy since starting Stivarga 6 months ago. She is also complaining of fatigue. She states that when she was hospitalized in June she went from 137 to 114 pounds; however, her weight has been stable at 117 pounds since then. She is also complaining of a "bump on her rear," and she states that about a week ago she coughed up some phlegm that did have a little bit of blood in it but has not had any since. ALLERGIES: 1. IRINOTECAN: Chest pains at [facility]) during administration in 2004. 2. ANGIOTENSIN-CONVERTING ENZYME (SHERWIN) INHIBITORS: Adverse reaction cough. 3. CHANTIX. PAST MEDICAL HISTORY: 1. Metastatic colon cancer, stage III, to lung, diagnosed in 2008, status post left lower lobe lobectomy in 2011 and colon resection in 2008. She has also received 12 cycles of adjuvant FOLFOX through 2008. She is currently on Stivarga 80 mg per day. 2. 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 3. History of necrotizing pneumonia in June 2017. 4. Emphysema. She was evaluated by Dr. Phillips in 2011. 5. Hiatal hernia. 6. Functional diarrhea. 7. Hypertension. MEDICATIONS: - albuterol sulfate nebulizer - Megace 40 mg/mL suspension, 10 mL by mouth daily - Ensure liquid one can orally three times a day - Silvadene 1% cream, one application to rectal tissue area externally three times a day - Tylenol 325, two tablets as needed orally every 6 hours - metoprolol succinate ER 25 mg tablets by mouth once daily - Advair HFA 115/21 mcg per ACT aerosol, two puffs twice a day - Imodium AD 2 mg tablet, two tablets orally four times a day as needed for diarrhea - Flonase 50 mcg per dose inhaler, one spray in each nostril nasally once a day - Stivarga 80 mg per day SURGICAL HISTORY: 1. Tonsillectomy. 2. Appendectomy. 3. Tubal ligation. 4. Left hip replacement. 5. Colectomy for colon cancer. 6. Left lobectomy. FAMILY HISTORY: Father with heart disease, congestive heart failure (CHF). Mother with hypertension, hypothyroidism. SOCIAL HISTORY: Quit smoking in 2008, one pack per day for 30 years. Occasional alcohol about once a week. No illicit drugs. PHYSICAL EXAMINATION: VITAL SIGNS: Temperature 97.9 degrees, pulse 82, respiratory rate 20, blood pressure was 111/74 with a mean arterial pressure (MAP) of 84, pulse oximetry is 98% on room air. GENERAL: Patient is in no acute distress. She is wrapped up in blankets, because she is cold. SKIN: Slightly pale but with good turgor. HEENT: Pupils are 3equal, round, and reactive to light bilaterally. Tongue is midline. Mucous membranes are moist. Dentition is fair. Patient has her own teeth. NECK: Supple and nontender. Trachea is midline. No adenopathy is appreciated. No carotid bruits are present. LUNGS: Clear to auscultation bilaterally. No wheezes, rhonchi, or rales. HEART: Regular rate with an irregular rhythm. It does sound like she is missing a beat here and there. ABDOMEN: There is an oblique scar on her right lower quadrant, where her appendectomy was performed. There is no distention. Bowel sounds are normoactive. There is some light tenderness to palpation of the right lower quadrant. BUTTOCKS: There is the beginnings of a pressure ulcer over her coccyx. No other lesions are appreciated. EXTREMITIES: Equal muscle tone bilaterally. Tibialis and dorsalis pedis pulses are equal bilaterally. Radial pulses are equal bilaterally as well. SKIN: There are no rashes. There is the beginning of a pressure ulcer on the patient's coccyx. Good skin turgor is noted throughout. LABORATORY DATA: CBC: White blood cells 19.7, hemoglobin 12.0, hematocrit 37.1, platelets 439, red cell distribution width 15.2, neutrophils 77.9, lymphocytes 12.5, monocytes 6.8, eosinophils 1.4. Chemistries: Sodium 132, potassium 6.5, chloride 99, carbon dioxide 22, BUN 68, creatinine 1.56, uric acid 9.4, calcium 10.5, phosphorus 6.1. AST 34, ALT 111, alkaline phosphatase 188. Creatine kinase 37, CK-MB 2.6, troponins less than 0.02, C-reactive protein 15.4, total protein 8.9, albumin 3.3, lipase 125. TSH 59.3. T4 is 8.3. ABG: Her pH 7.381, CO2 of 24.7, oxygen 99.0, bicarbonate 14.3. Coagulation: PT 13.7, INR 1.04, APTT 32.5. Urine: Yellow and hazy in appearance. The pH is 5.0, specific gravity 1.024, protein 1+, leukocyte esterase 1+, urine WBC 5. Microbiology: 1. Blood cultures times two are pending. 2. Gastrointestinal (GI) panel came back positive for Clostridium difficile. IMAGIN. Chest CT showed no acute findings. Left apical chronic pneumothorax with cavitary lesion and small amount of layering fluids and internal debris. Diffuse chronic changes throughout the bilateral lung sam as well as scattered pulmonary nodules and mass lesions, measuring up to 2 cm, which remained relatively stable compared to 07/07/2017. 2. Abdomen ultrasound showed a moderately distended gallbladder without gallstones or gallbladder wall thickening. No free fluid in the abdomen. No intrahepatic or extrahepatic biliary dilatation. Normal-caliber abdominal aorta without aneurysm. No acute abnormalities. EKG: Left bundle branch block. Normal sinus rhythm at 91 beats per minute. ASSESSMENT AND PLAN: This is a 72-year-old female patient with underlying medical history of metastatic colon cancer, stage III, with metastasis to the lung and adrenal gland, complicated by necrotizing pneumonia in June 2017. She presented with progressively worsening pain on the left side over the past 2 weeks and subsequently found to have hyperkalemia upon presentation to the emergency department. 1. Cavitary lung lesion, status post resolution of recent necrotizing pneumonia in June. CT scan did not show evidence of acute disease. Based on her history and physical examination, her pain seems to be more abdominal in nature. 2. Progressively worsening pain. Again, her pain seems to be originating in her hip, traveling up her side and into her back. She is currently on Stivarga chemotherapy. 3. Abnormal electrolytes. Her potassium upon her initial presentation to the emergency department was 7.0. It is now 6.3. She also has a creatinine of 1.56. Looking back through her records, her baseline is around 0.6. This is possibly due to tumor lysis syndrome, as the patient is on multiple medications that cause hypokalemia. We will continue to follow management via the hospitalist team. Thank you for your consultation of this patient. We will continue to follow. My faculty preceptor for this patient encounter was physically present during the encounter and was fully available. All aspects of the patient interview, examination, medical decision making process, and medical care plan development were reviewed and approved by the faculty preceptor. The faculty preceptor is aware and concurs with the plan as stated in the body of this note and will attest to such by his/her co-signature. I agree with the above as outlined. The cavitary change in imaging is impressive but not unexpected given her recent history of necrotizing pneumonia. The focus of her pain and radiation pattern is not consistent with the cavity on imaging, though it is peripheral there are not typical symptoms of pleuracy. Your plan of care is very reasonable. DENISSE
[2017-10-03] MEDS: MORPHINE 2 MG/ML 1ML SYRINGE IV PRN (19:57)
[2017-10-03 20:00] VITALS: BP 91/61
[2017-10-03] MEDS ORDERED: SODIUM BICARBONATE 50 MEQ in NS 0.45% 1,000 ML IV SCH (20:00)
[2017-10-03 21:00] VITALS: BP 91/59
[2017-10-03] MEDS: SENOKOT S TAB PO SCH (21:00)
[2017-10-03] MEDS: VANCOMYCIN ORAL SOL 250MG/5ML ORAL SYRINGE PO SCH (21:24)
[2017-10-03] MEDS: MEROPENEM INJ 1 GM in NS 100 ML IV SCH (21:26)
[2017-10-03] MEDS ORDERED: GASTROGRAFIN SOLUTION 30ML PO ONE (21:45)
[2017-10-03 22:00] VITALS: BP 96/53
[2017-10-03] MEDS ORDERED: GASTROGRAFIN SOLUTION 30ML (Q9963) PO ONE (22:15)
[2017-10-03 23:00] VITALS: BP 104/61
[2017-10-03 23:15] LABS: CALCIUM LEVEL 8.3 MG/DL (8.8-10.2); CREATININE FOR GFR 1.15 MG/DL (0.55-1.02); GLOMERULAR FILTRATION RATE 49.5 (>39)
[2017-10-03 23:28] LABS: POTASSIUM SERUM 5.8 MEQ/L (3.5-5.1)
[2017-10-03] MEDS ORDERED: INFLUENZA QUADRIVALENT PF VACCINE 0.5ML SYRINGE (90686) IM SCH (23:45)
[2017-10-03] MEDS ORDERED: INFLUENZA VIRUS VACCINE HIGH DOSE 0.5 ML SYRINGE (90662) IM SCH (23:45)
[2017-10-04] VITALS (13 sets, daily range): BP systolic 81–120; BP diastolic 52–60
[2017-10-04] MEDS: VANCOMYCIN ORAL SOL 250MG/5ML ORAL SYRINGE PO SCH ×5 (00:01→23:54)
[2017-10-04] MEDS: MORPHINE 2 MG/ML 1ML SYRINGE IV PRN ×3 (00:02→10:58)
[2017-10-04] MEDS ORDERED: MORPHINE 2 MG/ML 1ML SYRINGE IV PRN (01:00)
--- NOTE | 2017-10-04 01:20 | REPUSA ---
CLINICAL HISTORY: Abdominal pain. TECHNIQUE: Multiple axial, sagittal and coronal CT images were obtained through the abdomen and pelvi s without administration of IV contrast material. Patient ingested oral contrast. COMMENTS: Comparison to prior exam performed on 07/10/2017. Unchanged 4.5 cm calcified left adrenal mass. Unchanged 5.7 cm calcified left adrenal mass. Unchanged 3 mm left renal nonobstructing stone. Complete resolution of left pleural effusion. Urinary catheter balloon is in good position. Uncomplicated diverticulosis, unchanged. The liver is of uniform attenuation without mass or defect. There is no intra or extrahepatic biliary ductal dilatation. The spleen is normal. The gallbladder is within normal limits. The pancreas is of normal contour and attenuation characteristics. The kidneys are normal in size, shape and configuration. No renal or ureteral calculi are identified. There is no hydroureter or hydronephrosis. There is no evidence for appendicitis. There is no bowel wall thickening. No evidence for small or la rge bowel obstruction. There is no evidence of abdominal ascites or lymphadenopathy. There is no evidence of intrinsic or extrinsic bladder mass. There is no pelvic ascites or lymphadeno wood. Images of the lung bases show no evidence of pleural or parenchymal mass. There are no pleural effusi ons. The bony structures are free of lytic or blastic lesions. Multilevel degenerative changes are seen in volving the thoracolumbar spine. Scattered calcifications are seen involving the aorta and major branches compatible with atherosclero sis. IMPRESSION: Comparison to prior exam performed on 07/10/2017. Unchanged 4.5 cm calcified left adrenal mass. Unchanged 5.7 cm calcified left adrenal mass. Unchanged 3 mm left renal nonobstructing stone. Complete resolution of left pleural effusion. Urinary catheter balloon is in good position. Uncomplicated diverticulosis, unchanged. Thank you for your kind referral of this patient.
[2017-10-04] MEDS: IPRATROPIUM 0.5MG/ALBUTEROL 2.5MG INH SOL UD 3ML (DUONEB)(J7620) NEB SCH ×4 (02:00→20:03)
[2017-10-04] MEDS: NS 1,000 ML IV SCH ×2 (05:56→16:21)
[2017-10-04 06:22] LABS: MEAN CORPUSCULAR HEMOGLOBIN 29.4 pg (27.0-33.0); MEAN CORPUSCULAR HGB CONC 32.8 g/dl (32.0-36.5); MEAN CORPUSCULAR VOLUME 89.7 fl (80.0-96.0); RED CELL DISTRIBUTION WIDTH 14.8 % (11.5-14.5); WHITE BLOOD COUNT 11.1 10^3/uL (4.0-10.0)
[2017-10-04] MEDS: LEVOTHYROXINE 75MCG TABLET (0.075MG) PO SCH (06:35)
[2017-10-04] MEDS: HEPARIN SOD (PORCINE) 5000 UNITS/ML VIAL SC SCH ×3 (06:35→21:28)
[2017-10-04] MEDS: MEROPENEM INJ 1 GM in NS 100 ML IV SCH (06:35)
[2017-10-04 06:38] LABS: ALBUMIN 2.3 GM/DL (3.2-5.2); ALBUMIN/GLOBULIN RATIO 0.62 (1.00-1.93); ALKALINE PHOSPHATASE 140 U/L (45-117); ALT/SGPT 66 U/L (12-78); ANION GAP 9 MEQ/L (8-16); AST/SGOT 22 U/L (7-37); BILIRUBIN,TOTAL 0.7 MG/DL (0.2-1.0); BLOOD UREA NITROGEN 51 MG/DL (7-18); CARBON DIOXIDE LEVEL 23 MEQ/L (21-32); CHLORIDE LEVEL 96 MEQ/L (98-107); CREATININE FOR GFR 0.88 MG/DL (0.55-1.02); GLOMERULAR FILTRATION RATE > 60.0 (>39); GLUCOSE, FASTING 76 MG/DL (83-110); MAGNESIUM LEVEL 1.9 MG/DL (1.8-2.4); PHOSPHORUS LEVEL 3.2 MG/DL (2.5-4.9); SODIUM LEVEL 128 MEQ/L (136-145); URIC ACID 6.9 MG/DL (2.6-6.0)
[2017-10-04 06:39] LABS: INR 1.16
[2017-10-04 06:47] LABS: PLATELET COUNT, AUTOMATED 281 10^3/uL (150-450)
[2017-10-04 06:53] LABS: POTASSIUM SERUM 5.9 MEQ/L (3.5-5.1)
--- NOTE | 2017-10-04 06:59 | CR ---
DATE OF CONSULTATION: 10/03/2017 Ms. Meek is seen at the request of Dr. Young of the hospitalist service for left lower hemithorax chest pain. The patient is a 72-year-old, white female with known colon cancer metastatic to the lung presently on chemotherapy whose pain started approximately three weeks ago. The pain is in the lateral lower hemithorax and is exacerbated by moving and by touching it. It is not exacerbated by taking deep breaths. She has had a chronic cough with white sputum production. She had previously been admitted to this hospital for a necrotizing pneumonia in which she grew out an unusual bacterium of Ochrobactrum. She has had no fever, chills or sweats, although she does say that she gets clammy at night in the last couple of days. Accompanying this pain in the last 24 hours has been severe diarrhea, nausea and vomiting. She states she sought attention in the emergency room because the pain was becoming so intense. She has no dysphagia, although she has lost considerable weight. Her weight in June was 61 kg and today it is 54 kg. Furthermore, she complains of diffuse malaise and weakness, although she is able to ambulate. She does not complain of undue or unusual shortness of breath. There is no orthopnea, no paroxysmal nocturnal dyspnea. PAST MEDICAL HISTORY: 1. The above colon cancer metastatic to the lung. 2. Hypertension. 3. Chronic obstructive pulmonary disease (COPD). 4. Paroxysmal atrial fibrillation. 5. History of thrombocytopenia. 6. History of anemia. PAST SURGICAL HISTORY: 1. Left lower lobectomy in 2011 for metastatic disease. 2. Left hip replacement in 2005. 3. Invzjo-Z-Jmhm insertion times two. 4. Right colectomy in 2008. 5. Appendectomy at age 9. ALLERGIES: None. MEDICATIONS AT HOME: - loperamide 2 mg as needed diarrhea - Stivarga 80 mg daily - Tylenol Extra Strength four times a day as needed for pain - Xopenex HFA 1 puff four times a day as needed shortness of breath TRAVEL HISTORY: She has traveled to [facility], [place] and [place]. No travel to the [facility]. 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 No asbestos exposure. ANIMAL EXPOSURES: She has one cat, no dogs or birds. HABITS: Smoked one pack per day of [place]. Drinks occasionally on weekends. No illicit drugs. REVIEW OF SYSTEMS: Constitutional: See history of present illness (HPI). Eyes: Without diplopia. Without amaurosis fugax. Does complain of a diffuse haze and blurriness since starting her chemotherapy. Nose: Without epistaxis. Mouth: Has her own teeth. Respiratory: See HPI. Cardiac: Paroxysmal atrial fibrillation, without prior myocardial infarctions, orthopnea or paroxysmal nocturnal dyspnea, intermittent claudication, or peripheral edema. Gastrointestinal (GI): With the above nausea, vomiting and diarrhea. No hematemesis or hematochezia. Genitourinary (): Without dysuria or hematuria. Without prior history of renal stones. 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 Without paralyses or prior seizures. Lymphatics: Without lumps and bumps in her neck, axilla or groin that she has noted. Hematologic: Without prolonged bleeding times. Does have a history of anemia. Endocrine: Without diabetes. Without thyroid disease. Psychiatric: Without pathologic depression, psychoses or anxieties. PHYSICAL EXAMINATION: Well developed, cachectic white female in a weakened chronically ill state. Vital Signs: Blood pressure 127/97. Pulse 82 with a regular rate and rhythm. Respiratory rate 20 without the use of accessory muscles. Temperature 96.8. She is 96% saturated on room air. Eyes: Pupils equal, round, and reactive to light. Extraocular movements. Intact. Sclerae nonicteric. Nose without deformity. Mouth shows her mucous membranes to be pink and moist. Lips and commissures without lesions. There is no thrush. The tongue does look a little anemic. She has multiple missing teeth. Head: Normocephalic. Neck: Supple. There is no jugular venous distention. No subcutaneous emphysema. Trachea is midline. There are no carotid bruits. She has 2+ carotid upstrokes. There is no lymphadenopathy or thyromegaly. Lungs: Show decreased breath sounds throughout with normal vesicular sounds. Without wheezes, rhonchi or rales. Percussion notes are full to the diaphragm. Cardiac: Without murmurs, clicks, gallops, or rubs. I cannot feel her PMI. S1, S2 are normal. Abdomen: Soft. Nontender. Bowel sounds are positive. There is no hepatomegaly. There is no costovertebral angle (CVA) tenderness. Extremities: Show no pretibial edema. No calf tenderness. No differential swelling of the upper extremities. Skin: Warm, dry and perfused. Without cyanosis or mottling, including that of the nail beds and knees. Neurologic: Shows II-XII intact along with gross motor and gross sensation intact. Gait is not tested. Psychiatric shows her to be awake, alert, and oriented times three with appropriate mood and affect and conversational. INVESTIGATIONS: Her white count is 19.7 with hemoglobin and hematocrit of 12.0 and 37.1 with a platelet count of 439. Differential shows 77% neutrophils, 12% lymphocytes, 6% monocytes. There are no immature forms and no toxic granulations. Her chemistries on admission this morning to the operating room (OR) showed a sodium of 126 with a potassium of 7.0, a total CO2 of 16, with anion gap of 12. BUN and creatinine are 68 and 1.58 with a glucose of 107 and a calcium of 10.2 with a corresponding albumin of 3.3, making her by albumin correction hypercalcemic. Liver functions show an AST and ALT of 24 and 111 respectively with the ALT being elevated. Her TSH is 59, with the upper limit of normal here of 3.7. Blood gases are not yet done. Urinalysis shows urine pH of 5.0. She has 1+ leukocyte esterase, 5 white cells, no bacteria. Her chest CT today shows an upper hemithorax cavitary lesion. There is a small air fluid level posteriorly. Compared to her chest CT of 07/07/2017 the parenchyma has remarkably cleared. She is left with multiple pulmonary nodules. The chest CT in June showed a necrotizing pneumonia in the remaining upper lobe. I do not see any impressive mediastinal lymphadenopathy. Left adrenal is intact, as is the right adrenal. I do not see any liver lesions. IMPRESSION: 1. Left upper hemithorax cavitary lesion secondary to #2. 2. Prior necrotizing pneumonia with completion of the necrotizing process. 3. Hypertension. 4. Hyperkalemia. 5. Dehydration. 6. Renal failure secondary to dehydration. 7. Chronic obstructive pulmonary disease. 8. Tobacco abuse. PLAN AND DISCUSSION: At this point in time, I am not convinced that she has a major infection going on and I do not think that the air fluid level within the cavitary lesion is an empyema. She did have one episode of streaky hemoptysis about two weeks ago, but that has since resolved. Tuberculosis is always in the differential. I would suggest that we screen her with a sputum for AFB. She is immunosuppressed. I would not drain the upper hemithorax at this point in time. Pulmonary has already been consulted additionally on her. I think she needs to be well hydrated and the renal insufficiency and hyperkalemia will take care of itself after treating it initially emergently with bicarbonate, glucose and insulin.
[2017-10-04] MEDS: (RENVELA) SEVELAMER **CARBONate** 800 MG TAB PO SCH ×3 (08:05→18:13)
[2017-10-04] MEDS: SODIUM CHLORIDE 0.9% INJ 10 ML SYR IV SCH (09:00)
[2017-10-04] MEDS: SENOKOT S TAB PO SCH ×2 (09:00→21:00)
[2017-10-04] MEDS: MEGESTROL SUSP 400 MG/10 ML UDC PO SCH (09:35)
--- NOTE | 2017-10-04 10:04 | REP ---
Clinical: Cavitary lesion. Technique: PA and lateral. Comparison: 07/12/2017. Findings: Ill-defined opacity involving the left upper lung zone/apex with suspected cavitary component and air-fluid levels appears more prominent than prior examination. Associated ipsilateral volume loss and hilar retraction towards the left upper lobe lesion is again appreciated. The 2 cm density in the right lower lung zone is identified along with scattered underlying chronic interstitial changes as well as smaller right upper lobe pulmonary nodules which measure up to 14 mm and suspicious for metastatic disease. No effusion. No pneumothorax. [id number] with tip in the SVC. No cardiomegaly. Skeletal structures intact. Impression: 1. Left upper lobe irregular cavitary lesion with ipsilateral volume loss and retraction of the mediastinum appears somewhat more prominent than prior examination. 2. Scattered right-sided pulmonary nodules and mass lesion up to 2 cm. Signed by Carlos Alberto Mantilla MD 10/04/2017 09:56 A
--- NOTE | 2017-10-04 12:18 | REP ---
Clinical: History of metastatic colon cancer. Findings: Evaluation demonstrates diffuse osteopenia and osteoarthritic degenerative changes throughout the visualized skeletal structures. No osseous sclerotic, lytic or blastic lesions are identified to suggest skeletal metastases by radiographic evaluation. Large known complex cavitary lesion in the left upper lung zone is again identified and stable. Multiple noncalcified pulmonary nodules measure up to approximately 2 cm and consistent with metastatic disease. Bowel gas pattern is nonspecific and contrast material from recent CT evaluation is identified through the small and large bowel. Impression: Skeletal structures demonstrate osteopenia and advanced osteoarthritic degenerative changes. No evidence for skeletal metastases by current radiographic evaluation. Signed by Carlos Alberto Mantilla MD 10/04/2017 12:09 P
--- NOTE | 2017-10-04 13:44 | ECGEPIP ---
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
--- NOTE | 2017-10-04 13:45 | ECGEPIP ---
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
[2017-10-04 13:48] LABS: ANION GAP 8 MEQ/L (8-16); BLOOD UREA NITROGEN 42 MG/DL (7-18); CALCIUM LEVEL 8.2 MG/DL (8.8-10.2); CARBON DIOXIDE LEVEL 23 MEQ/L (21-32); CHLORIDE LEVEL 96 MEQ/L (98-107); CREATININE FOR GFR 0.81 MG/DL (0.55-1.02); GLOMERULAR FILTRATION RATE > 60.0 (>39); GLUCOSE, FASTING 78 MG/DL (83-110); SODIUM LEVEL 127 MEQ/L (136-145)
--- NOTE | 2017-10-04 15:35 | IPNPDOC ---
Subjective Date Seen The patient was seen on 10/04/17. Subjective Chief Complaint/HPI Patient seen and examined at the bedside. States that her pain is better controlled this morning, and notes that she is feeling better overall. Objective Physical Examination General Exam: Positive: Alert, Cooperative, No Acute Distress ENT Exam: Positive: Atraumatic, Mucous membr. moist/pink Neck Exam: Negative: JVD Chest Exam: Positive: Clear to auscultation, Normal air movement, Other (Chemo port noted on the chest wall) Heart Exam: Positive: Rate Normal, Normal S1, Normal S2 Abdomen Exam: Positive: Soft, Negative: Tenderness Extremity Exam: Negative: Tenderness, Swelling Psych Exam: Positive: Oriented x 3 Assessment /Plan Plan/VTE VTE Prophylaxis Ordered?: Yes Plan Left Upper Hemithorax Cavitary Lesion 2/2 Hx of Necrotizing PNA CT of the Chest reviewed Pulmonary and Thoracic Surgery input appreciated--There does not appear to be an active infectious source suggestive of underlying empyema. No indication for drainage. AFB testing and sputum studies ordered We will with hold any antibiotic therapy at this time The patient is comfortably saturating 97-99% on RA w/o any acute respiratory related symptoms Acute Kidney Injury 2/2 Intravascular Volume Depletion, C. Diff IVF Hydration ordered Hold Nephrotoxins No acute structural renal findings on CT abd imaging We will cont to monitor I/O's Nephrology on board Hyponatremia 2/2 Above We will continue to monitor the patient's serum sodium serially IV fluid hydration ordered Nephrology on board Hyperuricemia, hyperphosphatemia, Hyperkalemia Possibly secondary to tumor lysis syndrome from concurrent chemotherapy The patient's serum potassium improved following administration of insulin/ dextrose, Kayexalate, bicarbonate, and albuterol Uric acid and serum phosphorus levels improving with IV fluid hydration C. difficile diarrhea GI panel noted By mouth vancomycin ordered The patient's white blood cell count is down trending The patient states that her diarrhea has stopped since starting antibiotic therapy The patient is tolerating a by mouth diet We will continue to monitor her progress Leukocytosis 2/2 White blood cell count trending downward Hypothyroidism Continue levothyroxine Colon Cancer with Metastasis to the Lungs, Adrenal Gland Bone Scan done here with no evidence of Mets to the Bone CT Chest and CT Abd/Pel noted Patient follows with Dr. 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 Goals of care were discussed with the patient and her at the bedside. They voiced that they will address goals of care and with their Oncologist, Dr. León after discussing further treatment options. VS, I&O, 24H, Fishbone Vital Signs/I&O Vital Signs Date Time Temp Pulse Resp B/P (MAP) Pulse Ox O2 Delivery O2 Flow Rate FiO2 10/04/17 12:09 20 10/04/17 12:00 98.4 93 103/59 (74) 97 Room Air I&O- Last 24 Hours up to 6 AM 10/05/17 06:00 Intake Total 1900 ml Output Total 415 ml Balance 1485 ml Laboratory Data 24H LABS Laboratory Tests 2 10/03/17 15:28: Blood Gas Bicarbonate Standard 17.1L, Arterial Blood pH 7.381, Arterial Blood Partial Pressure CO2 24.7L, Arterial Blood Partial Pressure O2 99.0, Arterial Blood Total CO2 15.1L, Arterial Blood HCO3 14.3L, Arterial Blood Base Excess - 9.2L, Arterial Blood Oxygen Saturation 97.1 10/03/17 15:37: Bedside Glucose (Misc Panel) 84 10/03/17 17:14: Bedside Glucose (Misc Panel) 96 10/03/17 17:38: Anion Gap 9, Glomerular Filtration Rate 36.2L, Blood Urea Nitrogen 70H, Creatinine 1.51H, Sodium Level 129L, Potassium Level 6.4*H, Chloride Level 99, Carbon Dioxide Level 21, Calcium Level 9.6 10/03/17 18:28: Bedside Glucose (Misc Panel) 131H 10/03/17 20:01: Total Creatine Kinase 33, Creatine Kinase MB 2.4, Creatine Kinase MB Relative Index 7.27H, Troponin I < 0.02 10/03/17 20:10: Bedside Glucose (Misc Panel) 137H 10/03/17 22:41: Anion Gap 7L, Glomerular Filtration Rate 49.5, Blood Urea Nitrogen 61H, Creatinine 1.15H, Sodium Level 129L, Potassium Level 5.8H, Chloride Level 100, Carbon Dioxide Level 22, Calcium Level 8.3L 10/04/17 00:11: Bedside Glucose (Misc Panel) 76L 10/04/17 05:59: Nucleated Red Blood Cells % (auto) 0.0, Prothrombin Time 15.0H, Prothromb Time International Ratio 1.16, Anion Gap 9, Glomerular Filtration Rate > 60.0, Blood Urea Nitrogen 51H, Creatinine 0.88, Sodium Level 128L, Potassium Level 5.9H, Chloride Level 96L, Carbon Dioxide Level 23, Calcium Level 8.0L, Phosphorus Level 3.2#, Aspartate Amino Transf (AST/SGOT) 22, Alanine Aminotransferase (ALT/ SGPT) 66, Alkaline Phosphatase 140H, Total Bilirubin 0.7, Uric Acid 6.9H, Total Protein 6.0#L, Albumin 2.3#L, Magnesium Level 1.9, Albumin/Globulin Ratio 0.62L , Cortisol AM Sample 2.5L 10/04/17 06:39: Bedside Glucose (Misc Panel) 70L 10/04/17 12:38: Bedside Glucose (Misc Panel) 61L 10/04/17 13:09: Anion Gap 8, Glomerular Filtration Rate > 60.0, Blood Urea Nitrogen 42H, Creatinine 0.81, Sodium Level 127L, Potassium Level 5.0, Chloride Level 96L, Carbon Dioxide Level 23, Calcium Level 8.2L CBC/BMP Laboratory Tests 10/03/17 17:38 Calcium Level 9.6 10/03/17 22:41 Calcium Level 8.3 L 10/04/17 05:59 Calcium Level 8.0 L, Red Blood Count 2.82 L, Mean Corpuscular Volume 89.7, Mean Corpuscular Hemoglobin 29.4, Mean Corpuscular Hemoglobin Concent 32.8, Red Cell Distribution Width 14.8 H, Phosphorus Level 3.2 #, Aspartate Amino Transf (AST/ SGOT) 22, Alanine Aminotransferase (ALT/SGPT) 66, Alkaline Phosphatase 140 H, Total Bilirubin 0.7, Uric Acid 6.9 H, Total Protein 6.0 #L, Albumin 2.3 #L 10/04/17 13:09 Calcium Level 8.2 L Microbiology Microbiology 10/03/17 Blood Culture - Preliminary, Resulted No growth after 24 hours . All specim... 10/03/17 Blood Culture - Preliminary, Resulted No growth after 24 hours . All specim... 10/03/17 Gastrointestinal Tract Panel (PCR) - Final, Complete Clostridium Difficile A/B 10/03/17 Acid Fast Stain - Final, Resulted 10/03/17 Mycobacterial Culture, Resulted Pending 10/03/17 Respiratory Virus Panel (PCR) (PARTH) - Final, Complete 10/03/17 Gram Stain - Final, Resulted 10/03/17 Sputum Culture, Resulted Pending LETY JAVIER MD Oct 04, 2017 15:35
[2017-10-04] MEDS ORDERED: HYDROCORTISONE 100 MG/2 ML VIAL (J1720) IV ONE (18:30)
[2017-10-04 18:43] LABS: ANION GAP 7 MEQ/L (8-16); BLOOD UREA NITROGEN 36 MG/DL (7-18); CARBON DIOXIDE LEVEL 23 MEQ/L (21-32); CHLORIDE LEVEL 97 MEQ/L (98-107); CREATININE FOR GFR 0.88 MG/DL (0.55-1.02); GLOMERULAR FILTRATION RATE > 60.0 (>39); GLUCOSE, FASTING 128 MG/DL (83-110); SODIUM LEVEL 127 MEQ/L (136-145)
--- NOTE | 2017-10-04 21:29 | ECHO ---
DATE OF PROCEDURE: 10/04/2017 AGE: 72 GENDER: Female HEIGHT: 67 inches WEIGHT: 121 pounds BODY SURFACE AREA: 1.63 m2 PATIENT LOCATION: Inpatient, ICU, room 3206 REFERRING PHYSICIAN: Shanelle Young MD INDICATION: Abnormal EKG. 2-D MEASUREMENTS: RV: 3.8 cm LV: 3.4 cm Septum: 0.8 cm Posterior wall: 0.84 cm Aortic root: 3.3 cm LA: 3.0 cm LVEF: 50% DOPPLER MEASUREMENTS: AV: 1.0 m/s LVOT: 0.7 m/s LVOT diameter: 2.2 cm MV-E: 51, A: 85, EA ratio: 0.6 Early mitral deceleration time: 330 ms E prime: 4.7, A prime: 11, E/E prime ratio: 10.9 PV: 0.8 m/s Pulmonary artery acceleration time: 81 ms RVSP: 46 mmHg COMMENTS: Normal sinus rhythm with left bundle branch block. Technically difficult study but diagnostically useful information was still obtained. Normal left heart chamber sizes. Mildly dilated right heart chambers. Normal left ventricle (LV) wall thickness. On real-time imaging from the parasternal and apical projections there was a septal wall motion abnormality related to his left bundle branch block, but other wall motion was normal. Slightly thickened mitral annulus with normal leaflet thickness and excursion with no posterior systolic buckling. Three equal size aortic cusps with slightly thickened cusp edges, but adequate cusp separation. Normal aortic root size. No apparent intracardiac mass or pericardial effusion. Color flow Doppler study taken from the parasternal and apical projection showed trace mitral, no aortic, but moderately severe tricuspid insufficiency. Guided continuous wave Doppler of her aortic valve showed a normal peak systolic velocity against LV outflow tract obstruction. Pulsed and continuous wave Doppler of her LV inflow tract taken from the apical four-chamber projection showed normal diastolic filling velocities against mitral stenosis. There was more prominent late diastolic/atrial dependent filling pattern. Diastolic dysfunction was confirmed by a prolonged early mitral deceleration time and tissue Doppler of her mitral annulus. Her current estimated mean left atrial pressure however was upper limits of normal. Pulsed and continuous wave Doppler of her pulmonary trunk showed a normal peak systolic velocity against RV outflow tract obstruction. Her pulmonary artery acceleration time was abbreviated consistent with an elevated pulmonary vascular resistance. Guided continuous wave Doppler of her tricuspid valve allowed our estimation of her right ventricle systolic pressure (moderately increased). Her inferior vena cava was not well visualized to allow us to more accurately estimate her central venous pressure. An estimate of this was made at 10 mmHg. CONCLUSIONS: Technically challenging study in light of the patient's body habitus. Normal left ventricular size and wall thickness with septal wall motion abnormality due to left bundle branch block versus right ventricular pressure overload. Normal left atrial size with Doppler evidence of an impairment of LV diastolic function with current estimated mean left atrial pressure upper limits of normal. Mildly dilated right heart chambers with at least moderate pulmonary hypertension. Subtle thickening of the mitral annulus and aortic valvular sclerosis without functional valvular abnormality. MTDD
[2017-10-05] VITALS (7 sets, daily range): BP systolic 88–129; BP diastolic 52–95
[2017-10-05 00:44] LABS: ANION GAP 8 MEQ/L (8-16); BLOOD UREA NITROGEN 27 MG/DL (7-18); CALCIUM LEVEL 7.7 MG/DL (8.8-10.2); CARBON DIOXIDE LEVEL 23 MEQ/L (21-32); CHLORIDE LEVEL 101 MEQ/L (98-107); CREATININE FOR GFR 0.78 MG/DL (0.55-1.02); GLOMERULAR FILTRATION RATE > 60.0 (>39); GLUCOSE, FASTING 156 MG/DL (83-110); POTASSIUM SERUM 4.9 MEQ/L (3.5-5.1); SODIUM LEVEL 132 MEQ/L (136-145)
--- NOTE | 2017-10-05 01:08 | IPNPDOC ---
Text Note Date of Service The patient was seen on 10/05/17. NOTE Patient with Hypotension, Systolic BP in the 80s, Non Sx However, 500 cc bolus Ordered, Low Ca+ 7.7 will order replacement w/ Mg as well Labs to be sent prior, suspect Low Mag levels. VS,Fishbone, I+O VS, Fishbone, I+O Laboratory Tests 10/04/17 05:59 Red Blood Count 2.82 L, Mean Corpuscular Volume 89.7, Mean Corpuscular Hemoglobin 29.4, Mean Corpuscular Hemoglobin Concent 32.8, Red Cell Distribution Width 14.8 H, Calcium Level 8.0 L, Phosphorus Level 3.2 #, Aspartate Amino Transf (AST/SGOT) 22, Alanine Aminotransferase (ALT/SGPT) 66, Alkaline Phosphatase 140 H, Total Bilirubin 0.7, Uric Acid 6.9 H, Total Protein 6.0 #L, Albumin 2.3 #L 10/04/17 13:09 Calcium Level 8.2 L 10/04/17 18:07 Calcium Level 8.0 L 10/05/17 00:05 Calcium Level 7.7 L Vital Signs Date Time Temp Pulse Resp B/P (MAP) Pulse Ox O2 Delivery O2 Flow Rate FiO2 10/04/17 23:45 97.7 95 16 81/52 (62) 95 Room Air KAMAR PRATT MD Oct 05, 2017 01:08
[2017-10-05] MEDS ORDERED: NS 500 ML IV ONE (01:15)
[2017-10-05 01:16] LABS: MAGNESIUM LEVEL 1.7 MG/DL (1.8-2.4); PHOSPHORUS LEVEL 3.1 MG/DL (2.5-4.9)
[2017-10-05] MEDS ORDERED: MAG SULF 1GM/100ML (MAG RUN) 1 GM in APPROPRIATE DILUENT 1 EA IV ONE (01:30)
[2017-10-05] MEDS ORDERED: CALCIUM GLUCONATE 1,000 MG in D5W MINI-BAG PLUS 100 ML IV ONE ×2 (01:30→05:30)
[2017-10-05] MEDS: NS 1,000 ML IV SCH (01:47)
[2017-10-05] MEDS: IPRATROPIUM 0.5MG/ALBUTEROL 2.5MG INH SOL UD 3ML (DUONEB)(J7620) NEB SCH ×4 (01:54→19:40)
[2017-10-05] MEDS: HYDROCORTISONE 100 MG/2 ML VIAL (J1720) IV SCH ×3 (03:06→18:27)
[2017-10-05 03:51] LABS: MEAN CORPUSCULAR HEMOGLOBIN 30.2 pg (27.0-33.0); MEAN CORPUSCULAR HGB CONC 33.3 g/dl (32.0-36.5); MEAN CORPUSCULAR VOLUME 90.5 fl (80.0-96.0); PLATELET COUNT, AUTOMATED 247 10^3/uL (150-450); RED CELL DISTRIBUTION WIDTH 14.7 % (11.5-14.5); WHITE BLOOD COUNT 13.4 10^3/uL (4.0-10.0)
[2017-10-05 04:05] LABS: INR 1.22
[2017-10-05 04:22] LABS: ALBUMIN/GLOBULIN RATIO 0.63 (1.00-1.93); ALKALINE PHOSPHATASE 117 U/L (45-117); ALT/SGPT 47 U/L (12-78); ANION GAP 9 MEQ/L (8-16); AST/SGOT 19 U/L (7-37); BILIRUBIN,TOTAL 0.3 MG/DL (0.2-1.0); BLOOD UREA NITROGEN 23 MG/DL (7-18); CALCIUM LEVEL 7.9 MG/DL (8.8-10.2); CARBON DIOXIDE LEVEL 21 MEQ/L (21-32); CHLORIDE LEVEL 105 MEQ/L (98-107); CREATININE FOR GFR 0.73 MG/DL (0.55-1.02); GLOMERULAR FILTRATION RATE > 60.0 (>39); GLUCOSE, FASTING 143 MG/DL (83-110); MAGNESIUM LEVEL 2.2 MG/DL (1.8-2.4); POTASSIUM SERUM 4.7 MEQ/L (3.5-5.1); SODIUM LEVEL 135 MEQ/L (136-145); T UPTAKE 40 % (30-39); THYROXINE (T4) 5.3 UG/DL (4.5-12.0); TOTAL PROTEIN 5.2 GM/DL (6.4-8.2)
[2017-10-05] MEDS: HEPARIN SOD (PORCINE) 5000 UNITS/ML VIAL SC SCH ×3 (05:09→23:37)
[2017-10-05] MEDS: LEVOTHYROXINE 75MCG TABLET (0.075MG) PO SCH (05:09)
[2017-10-05] MEDS: VANCOMYCIN ORAL SOL 250MG/5ML ORAL SYRINGE PO SCH ×4 (05:09→23:37)
--- NOTE | 2017-10-05 05:35 | IPNPDOC ---
Text Note Date of Service The patient was seen on 10/05/17. NOTE Patient Ca+ still very low, will repleat further now that Mg Improved. Patient Hgb further decreased 7.3, M/P Hemodilution, Patient +4l over last 3 days. Nevertheless it behooves me to Type/Cross and screen, Ready 2 Units, Get Transfusion COnsent and Send [facility] with Recheck of CBC in 6 hours. VS,Fishbone, I+O VS, Fishbone, I+O Laboratory Tests 10/04/17 05:59 Red Blood Count 2.82 L, Mean Corpuscular Volume 89.7, Mean Corpuscular Hemoglobin 29.4, Mean Corpuscular Hemoglobin Concent 32.8, Red Cell Distribution Width 14.8 H, Calcium Level 8.0 L, Phosphorus Level 3.2 #, Aspartate Amino Transf (AST/SGOT) 22, Alanine Aminotransferase (ALT/SGPT) 66, Alkaline Phosphatase 140 H, Total Bilirubin 0.7, Uric Acid 6.9 H, Total Protein 6.0 #L, Albumin 2.3 #L 10/04/17 13:09 Calcium Level 8.2 L 10/04/17 18:07 Calcium Level 8.0 L 10/05/17 00:05 Calcium Level 7.7 L 10/05/17 03:40 Red Blood Count 2.42 L, Mean Corpuscular Volume 90.5, Mean Corpuscular Hemoglobin 30.2, Mean Corpuscular Hemoglobin Concent 33.3, Red Cell Distribution Width 14.7 H, Calcium Level 7.9 L, Aspartate Amino Transf (AST/SGOT ) 19, Alanine Aminotransferase (ALT/SGPT) 47, Alkaline Phosphatase 117, Total Bilirubin 0.3 #, Total Protein 5.2 L, Albumin 2.0 L Vital Signs Date Time Temp Pulse Resp B/P (MAP) Pulse Ox O2 Delivery O2 Flow Rate FiO2 10/05/17 03:44 97.1 83 18 100/60 (73) 97 Room Air KAMAR PRATT MD Oct 05, 2017 05:35
--- NOTE | 2017-10-05 06:10 | IPN ---
DATE OF SERVICE: 10/04/2017 SUBJECTIVE: The patient is seen this morning at the bedside in the intensive care unit (ICU). She continues to complain of left sided chest pain which is below the breast. Her blood pressures have been systolic from the 80s and 90s and so her morphine dose was decreased from prior. I had a discussion with her regarding her improved renal function and electrolytes over the course of the night. She denies any recurrent episode of diarrhea. States she still feels quite fatigued and weak. Vital signs: Temperature 98.4, pulse 93, respiratory rate 20, blood pressure 103/59, saturating 97% on room air. Intake and output: Intake today cumulative intake thus far 5200 in and urine 1390 mL out, positive fluid balance 3.8 liters. PHYSICAL EXAMINATION: The patient is seen at the bedside in the intensive care unit (ICU). Appears very fatigued and tired and chronically ill and frail but in no acute distress. Head and neck: Normocephalic, extraocular muscles are intact. The tongue is moist. The neck is supple. There is no jugular venous distention. Cardiac: Regular S1, S2. There is no edema in the lower extremities or in the dependent area. Her labial pulses are palpable. Lungs: Patient is comfortable on room air. There is no accessory muscle use. There is fair air entry and a chemo port is present in the right anterior chest wall. Abdomen is soft, nontender to palpation. Positive bowel sounds. The extremities are without edema. Genitourinary: There is a Rodriguez catheter in place with urine. Neurologic: There are no focal deficits. She is appropriately interactive and conversational. Psychiatric: Appropriate mood and affect. LABS: White count 11.1, hemoglobin 8.3, platelets 281. Sodium 127, potassium 5.0, bicarbonate 23, BUN 42, creatinine 0.8, calcium 8.2. Uric acid this morning 6.9. INR 1.1. Microbiology: Stool 10/03 Clostridium difficile positive. Blood cultures 10/03 no growth times two sets. IMAGING: Bone survey 10/04 no evidence for skeletal metastases. INPATIENT MEDICATIONS: I have started the patient on hydrocortisone 50 mg IV every 8 for adrenal insufficiency. She otherwise continues normal saline at 100 mL an hour. Her morphine dose was decreased. She remains on oral vancomycin. I have discontinued her Renvela. PROBLEMS: 1. Hypovolemic hyponatremia suspected secondary to primary adrenal insufficiency. 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 Her morning cortisol was low this morning. I have added on adrenocorticotropic hormone aldosterone and renin. Adrenal insufficiency would explain her borderline low blood pressures, hyponatremia and hyperkalemia. I have started her on hydrocortisone 50 mg IV every 8. She may have a brisk correction in her serum sodium with hydrocortisone administration and she should continue on BMP every 6 hours and with close attention to urine output. If the patient begins to over correct, we will start hypotonic fluid. I have instructed the nursing staff to continue to call me with her every 6 hour BMP. 2. Acute kidney injury with multiple electrolyte abnormalities including hypercalcemia, hyperuricemia, hyperphosphatemia. I believe her acute kidney injury was secondary to a prerenal state with volume depletion in the setting of Clostridium difficile diarrhea. She has improved with normal saline, is making satisfactory urine. Her potassium has improved nicely as has her phosphorus, calcium and uric acid. Will discontinue Renvela and allopurinol at this time. 3. Clostridium diarrhea. The patient states she has not had any more diarrhea overnight or this morning. She continues on oral vancomycin. Her white count is down trending and she is tolerating an oral diet. 4. Hypothyroidism may also possibly have an effect on serum sodium and she continues on levothyroxine for replacement. 5. Anemia. The patient's hemoglobin has gone from a 12 to 8.3 likely due to aggressive hydration with IV fluids which unmasked anemia. Continue to monitor hemoglobin and hematocrit. PRBC per primary team. Plan of care is discussed with Dr. Seymour Castillo. DENISSE
[2017-10-05] MEDS: SENOKOT S TAB PO SCH ×2 (09:00→20:41)
[2017-10-05] MEDS: MEGESTROL SUSP 400 MG/10 ML UDC PO SCH (09:03)
[2017-10-05] MEDS: SODIUM CHLORIDE 0.9% INJ 10 ML SYR IV SCH (09:04)
[2017-10-05 10:12] LABS: MEAN CORPUSCULAR HEMOGLOBIN 30.3 pg (27.0-33.0); MEAN CORPUSCULAR HGB CONC 32.9 g/dl (32.0-36.5); MEAN CORPUSCULAR VOLUME 92.1 fl (80.0-96.0); PLATELET COUNT, AUTOMATED 285 10^3/uL (150-450); RED CELL DISTRIBUTION WIDTH 14.8 % (11.5-14.5); WHITE BLOOD COUNT 14.8 10^3/uL (4.0-10.0)
[2017-10-05] MEDS ORDERED: METOPROLOL 5 MG/5 ML VIAL IV PRN (10:30)
[2017-10-05 10:44] LABS: ANION GAP 14 MEQ/L (8-16); BLOOD UREA NITROGEN 23 MG/DL (7-18); CALCIUM LEVEL 8.5 MG/DL (8.8-10.2); CARBON DIOXIDE LEVEL 18 MEQ/L (21-32); CHLORIDE LEVEL 105 MEQ/L (98-107); GLOMERULAR FILTRATION RATE > 60.0 (>39); GLUCOSE, FASTING 157 MG/DL (83-110); POTASSIUM SERUM 3.9 MEQ/L (3.5-5.1); SODIUM LEVEL 137 MEQ/L (136-145)
[2017-10-05] MEDS ORDERED: POTASSIUM CHLORIDE 10% LIQ 20 MEQ/15 ML UDC PO ONE (12:00)
--- NOTE | 2017-10-05 12:59 | ECGEPIP ---
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
[2017-10-05] MEDS ORDERED: SODIUM BICARBONATE 50 MEQ in NS 0.45% 1,000 ML IV SCH (13:00)
--- NOTE | 2017-10-05 15:32 | IPNPDOC ---
Subjective Date Seen The patient was seen on 10/05/17. Subjective Chief Complaint/HPI Patient seen and examined at bedside. States that she is feeling much better today, and notes that her abdominal pain has completely resolved. Objective Physical Examination General Exam: Positive: Alert, Cooperative, No Acute Distress ENT Exam: Positive: Atraumatic, Mucous membr. moist/pink Neck Exam: Negative: JVD Chest Exam: Positive: Clear to auscultation, Normal air movement, Other (Chemo port noted on the chest wall) Heart Exam: Positive: Rate Normal, Normal S1, Normal S2 Abdomen Exam: Positive: Soft, Negative: Tenderness Extremity Exam: Negative: Tenderness, Swelling Psych Exam: Positive: Oriented x 3 Assessment /Plan Plan/VTE VTE Prophylaxis Ordered?: Yes Plan Left Upper Hemithorax Cavitary Lesion 2/2 Hx of Necrotizing PNA CT of the Chest reviewed Pulmonary and Thoracic Surgery input appreciated--There does not appear to be an active infectious source suggestive of underlying empyema. No indication for drainage. AFB testing and sputum studies noted We will with hold any antibiotic therapy at this time The patient is comfortably saturating 97-99% on RA w/o any acute respiratory related symptoms Acute Kidney Injury 2/2 Intravascular Volume Depletion, C. Diff IVF Hydration ordered Hold Nephrotoxins No acute structural renal findings on CT abd imaging We will cont to monitor I/O's Nephrology on board Hyponatremia, Hyperkalemia likely 2/2 Adrenal Insufficiency On IV Hydrocortisone 50mg q8h Serum Sodium, Potassium levels back to within normal limits C. 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 León as an outpatient--He has been updated on the patient's clinical condition, findings on 10/05/17 COPD Cont albuterol prn Hx of Paroxysmal Atrial Fibrillation Lopressor 5mg IV prn ordered for HR >110 Not on any AC 2/2 Hx of Bleeding in the past DVT Prophylaxis Heparin SC Prognosis--Poor custodial prognosis. Goals of care were discussed with the patient and her at the bedside. They voiced that they will address goals of care and with their Oncologist, Dr. León after discussing further treatment options. Dispo--pending clinical improvement. PT Eval. VS, I&O, 24H, Fishbone Vital Signs/I&O Vital Signs Date Time Temp Pulse Resp B/P (MAP) Pulse Ox O2 Delivery O2 Flow Rate FiO2 10/05/17 12:57 102/69 (80) 10/05/17 12:00 Room Air 10/05/17 12:00 98.7 129 20 99 I&O- Last 24 Hours up to 6 AM 10/06/17 06:00 Intake Total 1047 ml Output Total 450 ml Balance 597 ml Laboratory Data 24H LABS Laboratory Tests 2 10/04/17 17:24: Bedside Glucose (Misc Panel) 77L 10/04/17 18:07: Anion Gap 7L, Glomerular Filtration Rate > 60.0, Blood Urea Nitrogen 36H, Creatinine 0.88, Sodium Level 127L, Potassium Level 5.0, Chloride Level 97L, Carbon Dioxide Level 23, Calcium Level 8.0L 10/05/17 00:05: Anion Gap 8, Glomerular Filtration Rate > 60.0, Blood Urea Nitrogen 27H, Creatinine 0.78, Sodium Level 132L, Potassium Level 4.9, Chloride Level 101, Carbon Dioxide Level 23, Calcium Level 7.7L, Phosphorus Level 3.1, Magnesium Level 1.7L 10/05/17 00:22: Bedside Glucose (Misc Panel) 160H 10/05/17 03:40: Nucleated Red Blood Cells % (auto) 0.0, Prothrombin Time 15.6H, Prothromb Time International Ratio 1.22, Anion Gap 9, Glomerular Filtration Rate > 60.0, Blood Urea Nitrogen 23H, Creatinine 0.73, Sodium Level 135L, Potassium Level 4.7, Chloride Level 105, Carbon Dioxide Level 21, Calcium Level 7.9L, Aspartate Amino Transf (AST/SGOT) 19, Alanine Aminotransferase (ALT/SGPT) 47, Alkaline Phosphatase 117, Total Bilirubin 0.3#, Total Protein 5.2L, Albumin 2.0L, Magnesium Level 2.2, Albumin/Globulin Ratio 0.63L, Thyroid Stimulating Hormone ( TSH) 13.100H, Free Thyroxine Index 2.1, Thyroxine (T4) 5.3, Triiodothyronine (T3 ) Uptake 40H 10/05/17 09:47: Nucleated Red Blood Cells % (auto) 0.0, Anion Gap 14, Glomerular Filtration Rate > 60.0, Blood Urea Nitrogen 23H, Creatinine 0.90, Sodium Level 137, Potassium Level 3.9, Chloride Level 105, Carbon Dioxide Level 18L, Calcium Level 8.5L CBC/BMP Laboratory Tests 10/04/17 18:07 Calcium Level 8.0 L 10/05/17 00:05 Calcium Level 7.7 L 10/05/17 03:40 Calcium Level 7.9 L, Red Blood Count 2.42 L, Mean Corpuscular Volume 90.5, Mean Corpuscular Hemoglobin 30.2, Mean Corpuscular Hemoglobin Concent 33.3, Red Cell Distribution Width 14.7 H, Aspartate Amino Transf (AST/SGOT) 19, Alanine Aminotransferase (ALT/SGPT) 47, Alkaline Phosphatase 117, Total Bilirubin 0.3 # , Total Protein 5.2 L, Albumin 2.0 L 10/05/17 09:47 Calcium Level 8.5 L, Red Blood Count 2.54 L, Mean Corpuscular Volume 92.1, Mean Corpuscular Hemoglobin 30.3, Mean Corpuscular Hemoglobin Concent 32.9, Red Cell Distribution Width 14.8 H Microbiology Microbiology 10/03/17 Blood Culture - Preliminary, Resulted No Growth after 48 hours. All Specime... 10/03/17 Blood Culture - Preliminary, Resulted No Growth after 48 hours. All Specime... 10/05/17 Stool Occult Blood (PAR[facility]) - Final, Complete 10/03/17 Gastrointestinal Tract Panel (PCR) - Final, Complete Clostridium Difficile A/B 10/03/17 Acid Fast Stain - Final, Resulted 10/03/17 Mycobacterial Culture, Resulted Pending 10/03/17 Respiratory Virus Panel (PCR) (PAR[facility]) - Final, Complete 10/03/17 Gram Stain - Final, Resulted 10/03/17 Sputum Culture, Resulted Pending LETY JAVIER MD Oct 05, 2017 15:32
--- NOTE | 2017-10-05 18:04 | IPN ---
DATE: 10/05/2017 SUBJECTIVE: The patient is seen this morning at the bedside. I had discussions overnight with the nurses regarding her electrolytes and for adjustment of intravenous (IV) fluid. 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 Since starting IV hydrocortisone, she has had a brisk diuresis and has begun to correct her sodium in the past 24 hours, corrected by 7 mEq. She states she feels better, is no longer having any left-sided chest pain but she did have two episodes of watery diarrhea. She is receiving packed red blood cells transfusion. Her blood pressure has been borderline, and she received a fluid bolus overnight of 500 mL of normal saline, and she is started on IV Lopressor today for paroxysmal atrial fibrillation. OBJECTIVE: VITAL SIGNS: Temperature 98.2, pulse of 83-101, blood pressure systolic 80s to 90s at best systolic 100, over diastolic of 50s to 60s. Pulse oximetry 99% on room air. INTAKE AND OUTPUT: Intake yesterday was 4450. Urine output 2290. Balance positive 2.1 liters. Weight in the bed scale today 55 kg which is decreased from prior. General: in bed comfortable, in good spirits, at bedside HEENT: eomi, mmm Chest: s1,s2 irregular irregular. radial pulse 2+. no edema in ext lungs: no accessory muscle use. comfortable on room air abdomen: soft, non tender, + bowel sounds ext: no edema Genitourinary: stone cath draining urine skin- normal turgor and temp neurologic - no focal deficit LABORATORY DATA: Sodium 135 from 132 at midnight, 127 yesterday evening prior to steroids and 128 yesterday morning at 6 a.m., roughly 7 mEq correction in 24 hours. Potassium 4.7 , bicarbonate 21, BUN 23, creatinine 0.7, glucose 143, corrected calcium 9.5, magnesium 2.2. LFTs normal. TSH improved down to 13. Cortisol a.m. 2.5, ACTH aldosterone and renin pending. INPATIENT MEDICATIONS: The patient has received IV calcium and magnesium runs overnight for ectopy. She received a 500 mL normal saline overnight for hypotension. I have adjusted her fluids in response to her chemistries. She is currently ordered for D5W with potassium at 100 mL an hour. Was previously on normal saline at 75 mL an hour. She continues on hydrocortisone 50 mg IV every eight. Was started by the primary team on Lopressor 5 mg IV every six as needed for heart rate greater than 110. Remainder of medications are unchanged from prior. PROBLEMS: 1. Suspected primary adrenal insufficiency secondary to known adrenal metastasis causing hypovolemic hyponatremia with hyperkalemia. I have started the patient on hydrocortisone 50 mg IV every eight, and she has briskly diuresed and is correcting her serum sodium. Due to concern for over correction, I am continuing her on basic metabolic panel (BMP) monitoring every six hours, and at this time, in view of her significant urine output, I will put her on hypotonic fluids. She will require lifelong glucomineralocorticoid replacement going forward, and I have advised her of the same. Adrenocorticotropic hormone (ACTH) aldosterone and renin are pending. Unfortunately, they were drawn after hydrocortisone was already begun. 2. Acute kidney injury with hypercalcemia, hyperuricemia, and hyperphosphatemia. Most likely this is secondary to dehydration from her Clostridium (C.) difficile diarrhea, and this has resolved with aggressive intravenous (IV) hydration. Renal function is back to baseline, and her electrolytes have nicely stabilized. 3. Clostridium (C.) difficile diarrhea. The patient continues on oral vancomycin. She reports two diarrheal episodes today. Her white count up-trended , but that is likely due to steroids. 4. Hypothyroidism may have had an effect on serum sodium, although I do believe the main driving force was the adrenal insufficiency. she continues on levothyroxine for replacement. 5. Anemia. Aggressive hydration unmasked the patient's underlying anemia and she is receiving packed red blood cells transfusion. Plan of care is discussed with progressive care unit (PCU) nurse. I advised them to continue to call me with every six hours BMP for timely adjustment of the patient's IV fluids. MTDD
[2017-10-05] MEDS: POTASSIUM CHLORIDE INJ 40 MEQ in D5W 1,000 ML IV SCH ×2 (18:38→20:25)
[2017-10-05 19:26] LABS: ANION GAP 11 MEQ/L (8-16); BLOOD UREA NITROGEN 22 MG/DL (7-18); CALCIUM LEVEL 8.1 MG/DL (8.8-10.2); CARBON DIOXIDE LEVEL 20 MEQ/L (21-32); CHLORIDE LEVEL 109 MEQ/L (98-107); GLOMERULAR FILTRATION RATE > 60.0 (>39); GLUCOSE, FASTING 130 MG/DL (83-110); POTASSIUM SERUM 3.8 MEQ/L (3.5-5.1); SODIUM LEVEL 140 MEQ/L (136-145)
[2017-10-05] MEDS ORDERED: D5W 250 ML IV ONE (19:45)
[2017-10-05 23:51] LABS: ANION GAP 9 MEQ/L (8-16); BLOOD UREA NITROGEN 20 MG/DL (7-18); CALCIUM LEVEL 7.8 MG/DL (8.8-10.2); CARBON DIOXIDE LEVEL 20 MEQ/L (21-32); CHLORIDE LEVEL 110 MEQ/L (98-107); CREATININE FOR GFR 0.63 MG/DL (0.55-1.02); GLOMERULAR FILTRATION RATE > 60.0 (>39); GLUCOSE, FASTING 180 MG/DL (83-110); SODIUM LEVEL 139 MEQ/L (136-145)
[2017-10-06] VITALS: BP 114/56
[2017-10-06] MEDS: HYDROCORTISONE 100 MG/2 ML VIAL (J1720) IV SCH ×2 (03:33→11:19)
[2017-10-06] MEDS: IPRATROPIUM 0.5MG/ALBUTEROL 2.5MG INH SOL UD 3ML (DUONEB)(J7620) NEB SCH ×4 (03:44→19:55)
[2017-10-06] MEDS: POTASSIUM CHLORIDE INJ 40 MEQ in D5W 1,000 ML IV SCH (03:55)
[2017-10-06 04:00] VITALS: BP 98/60
[2017-10-06 05:37] LABS: MEAN CORPUSCULAR HEMOGLOBIN 29.7 pg (27.0-33.0); MEAN CORPUSCULAR HGB CONC 32.8 g/dl (32.0-36.5); MEAN CORPUSCULAR VOLUME 90.5 fl (80.0-96.0); PLATELET COUNT, AUTOMATED 283 10^3/uL (150-450); RED CELL DISTRIBUTION WIDTH 15.3 % (11.5-14.5); WHITE BLOOD COUNT 13.8 10^3/uL (4.0-10.0)
[2017-10-06 05:48] LABS: INR 1.11
[2017-10-06] MEDS: LEVOTHYROXINE 75MCG TABLET (0.075MG) PO SCH (05:54)
[2017-10-06] MEDS: HEPARIN SOD (PORCINE) 5000 UNITS/ML VIAL SC SCH ×3 (05:54→21:27)
[2017-10-06] MEDS: VANCOMYCIN ORAL SOL 250MG/5ML ORAL SYRINGE PO SCH ×4 (05:55→23:40)
[2017-10-06 05:59] LABS: ALBUMIN/GLOBULIN RATIO 0.61 (1.00-1.93); ALKALINE PHOSPHATASE 97 U/L (45-117); ALT/SGPT 45 U/L (12-78); ANION GAP 10 MEQ/L (8-16); AST/SGOT 22 U/L (7-37); BILIRUBIN,TOTAL 0.3 MG/DL (0.2-1.0); BLOOD UREA NITROGEN 16 MG/DL (7-18); CALCIUM LEVEL 7.9 MG/DL (8.8-10.2); CARBON DIOXIDE LEVEL 18 MEQ/L (21-32); CHLORIDE LEVEL 110 MEQ/L (98-107); CREATININE FOR GFR 0.63 MG/DL (0.55-1.02); GLOMERULAR FILTRATION RATE > 60.0 (>39); GLUCOSE, FASTING 182 MG/DL (83-110); MAGNESIUM LEVEL 1.8 MG/DL (1.8-2.4); SODIUM LEVEL 138 MEQ/L (136-145); TOTAL PROTEIN 5.3 GM/DL (6.4-8.2)
[2017-10-06 08:00] VITALS: BP 98/56
[2017-10-06] MEDS: SENOKOT S TAB PO SCH ×2 (09:00→21:00)
[2017-10-06] MEDS: SODIUM CHLORIDE 0.9% INJ 10 ML SYR IV SCH (09:00)
[2017-10-06] MEDS: MEGESTROL SUSP 400 MG/10 ML UDC PO SCH (09:28)
--- NOTE | 2017-10-06 11:17 | IPNPDOC ---
Subjective Date Seen The patient was seen on 10/06/17. Subjective Chief Complaint/HPI Patient seen and examined at the bedside. States that she is feeling better today, but does note that she did have 5-7 episodes of loose stools last night. However, she does state that the volume of stool is decreasing. She denies any abdominal pain, and notes that she is able to tolerate by mouth intake without any acute complaints. Objective Physical Examination General Exam: Positive: Alert, Cooperative, No Acute Distress ENT Exam: Positive: Atraumatic, Mucous membr. moist/pink Neck Exam: Negative: JVD Chest Exam: Positive: Clear to auscultation, Normal air movement, Other (Chemo port noted on the chest wall) Heart Exam: Positive: Rate Normal, Normal S1, Normal S2 Telemetry: Positive: Atrial fibrillation Abdomen Exam: Positive: Soft, Negative: Tenderness Extremity Exam: Negative: Tenderness, Swelling Psych Exam: Positive: Oriented x 3 Assessment /Plan Plan/VTE VTE Prophylaxis Ordered?: Yes Plan Left Upper Hemithorax Cavitary Lesion 2/2 Hx of Necrotizing PNA CT of the Chest reviewed Pulmonary and Thoracic Surgery input appreciated--There does not appear to be an active infectious source suggestive of underlying empyema. No indication for drainage. AFB testing and sputum studies noted We will with hold any antibiotic therapy at this time The patient is comfortably saturating 97-99% on RA w/o any acute respiratory related symptoms Acute Kidney Injury 2/2 Intravascular Volume Depletion, C. Diff IVF Hydration as per Nephro, discussed discontinuing these today No acute structural renal findings on CT abd imaging We will cont to monitor I/O's Nephrology on board Hyponatremia, Hyperkalemia likely 2/2 Adrenal Insufficiency On IV Hydrocortisone 50mg q8h-->Discussed with Nephro, will transition this to PO Serum Sodium, Potassium levels back to within normal limits C. 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 León as an outpatient--He has been updated on the patient's clinical condition, findings on 10/05/17 COPD Cont albuterol prn Hx of Paroxysmal Atrial Fibrillation Lopressor 5mg IV prn ordered for HR >110 Not on any AC 2/2 Hx of Bleeding in the past DVT Prophylaxis Heparin SC Prognosis--Poor longterm prognosis. Goals of care were discussed with the patient and her at the bedside. They voiced that they will address goals of care and with their Oncologist, Dr. León after discussing further treatment options. Dispo--pending clinical improvement. PT Eval. Anticipate D/C in 24-48hrs. VS, I&O, 24H, Fishbone Vital Signs/I&O Vital Signs Date Time Temp Pulse Resp B/P (MAP) Pulse Ox O2 Delivery O2 Flow Rate FiO2 10/06/17 08:00 Room Air 10/06/17 04:00 97.8 101 18 98/60 (73) 99 I&O- Last 24 Hours up to 6 AM 10/07/17 06:00 Intake Total 940 ml Output Total 1100 ml Balance -160 ml Laboratory Data 24H LABS Laboratory Tests 2 10/05/17 18:37: Anion Gap 11, Glomerular Filtration Rate > 60.0, Blood Urea Nitrogen 22H, Creatinine 0.70, Sodium Level 140, Potassium Level 3.8, Chloride Level 109H, Carbon Dioxide Level 20L, Calcium Level 8.1L 10/05/17 23:26: Anion Gap 9, Glomerular Filtration Rate > 60.0, Blood Urea Nitrogen 20H, Creatinine 0.63, Sodium Level 139, Potassium Level 4.0, Chloride Level 110H, Carbon Dioxide Level 20L, Calcium Level 7.8L 10/06/17 05:22: Anion Gap 10, Glomerular Filtration Rate > 60.0, Blood Urea Nitrogen 16, Creatinine 0.63, Sodium Level 138, Potassium Level 4.0, Chloride Level 110H, Carbon Dioxide Level 18L, Calcium Level 7.9L, Nucleated Red Blood Cells % (auto ) 0.0, Prothrombin Time 14.5, Prothromb Time International Ratio 1.11, Aspartate Amino Transf (AST/SGOT) 22, Alanine Aminotransferase (ALT/SGPT) 45, Alkaline Phosphatase 97, Total Bilirubin 0.3, Total Protein 5.3L, Albumin 2.0L, Magnesium Level 1.8, Albumin/Globulin Ratio 0.61L CBC/BMP Laboratory Tests 10/05/17 18:37 Calcium Level 8.1 L 10/05/17 23:26 Calcium Level 7.8 L 10/06/17 05:22 Calcium Level 7.9 L, Red Blood Count 2.63 L, Mean Corpuscular Volume 90.5, Mean Corpuscular Hemoglobin 29.7, Mean Corpuscular Hemoglobin Concent 32.8, Red Cell Distribution Width 15.3 H, Aspartate Amino Transf (AST/SGOT) 22, Alanine Aminotransferase (ALT/SGPT) 45, Alkaline Phosphatase 97, Total Bilirubin 0.3, Total Protein 5.3 L, Albumin 2.0 L Microbiology Microbiology 10/03/17 Blood Culture - Preliminary, Resulted No Growth after 48 hours. All Specime... 10/03/17 Blood Culture - Preliminary, Resulted No Growth after 48 hours. All Specime... 10/05/17 Stool Occult Blood ([facility]) - Final, Complete 10/03/17 Gastrointestinal Tract Panel (PCR) - Final, Complete Clostridium Difficile A/B 10/03/17 Acid Fast Stain - Final, Resulted 10/03/17 Mycobacterial Culture, Resulted Pending 10/03/17 Respiratory Virus Panel (PCR) ([facility]) - Final, Complete 10/03/17 Gram Stain - Final, Complete 10/03/17 Sputum Culture - Final, Complete Klebsiella Pneumoniae LETY JAVIER MD Oct 06, 2017 11:17
[2017-10-06 12:04] VITALS: BP 110/66
[2017-10-06] MEDS: SODIUM CHLORIDE 0.9% INJ 10 ML SYR IV PRN (12:14)
[2017-10-06] MEDS: SODIUM BICARBONATE 325 MG TAB PO SCH ×2 (14:46→21:25)
[2017-10-06 15:40] VITALS: BP 110/72
[2017-10-06] MEDS ORDERED: HYDROCORTISONE 10 MG TAB PO SCH ×2 (18:00)
[2017-10-06 20:00] VITALS: BP 113/64
--- NOTE | 2017-10-06 21:05 | IPN ---
DATE: 10/06/2017 SUBJECTIVE: The patient was seen and examined at the bedside today morning. The patient is hemodynamically stable at this time. Last 24-hour events were noted. I was actually called for the serial sodium levels. She required intravenous (IV) dextrose 5% with water (D5W) administration because of rapid correction after stress dose of hydrocortisone. Sodium is stable at 138 today. The renal function is also stable at baseline. REVIEW OF SYSTEMS: The patient denies any fevers, chills, rigors. She denies any chest pain. She does report some cough, and she does report diarrhea because of Clostridium (C.) difficile. Rest of review of systems is negative. OBJECTIVE: VITAL SIGNS: Temperature is 98.4 degrees Fahrenheit, blood pressure is 110/66, pulse is 99, respiratory rate 16, saturating 100% on room air. INTAKE AND OUTPUT: Urine output recorded as 1200 mL yesterday. There is no urine output recorded at this time. She had four bowel movements so far today since overnight. Weight in the bed scale is 57.9 kg. PHYSICAL EXAMINATION: GENERAL: The patient is awake, alert, oriented times three lying in bed no apparent distress. Weak and cachectic. HEAD/NECK: Extraocular muscles intact. Pupils equal, round, and reactive to light. Mucous membranes are moist. The patient has bitemporal wasting. Neck is supple there is no jugular venous distention. (JVD). CARDIOVASCULAR: S1, S2. Regular rate. No murmur, rub, or gallop. RESPIRATORY: Chest is clear to auscultation bilaterally, bilateral equal air entry. No rales or rhonchi. The patient has right anterior chest wall Port-A-Cath. ABDOMEN: Soft. Old surgical scars visible. No organomegaly. No ascites. MUSCULOSKELETAL: No clubbing or cyanosis. No edema of the extremities. Pulses are 2+. CENTRAL NERVOUS SYSTEM (PARTS LISTER): No focal neurological deficits. Power is 5/5 in all extremities. PSYCHIATRIC: Normal mood and affect. LABORATORY DATA: CBC showed a WBC of 13.8, hemoglobin 7.8, platelets at 283. INR is 1.1. BMP today morning showed sodium 138, potassium four, chloride 110, bicarbonate 18, BUN 16, creatinine 0.63, calcium 7.9, magnesium 1.8. Albumin is two. MICROBIOLOGY: Stool occult blood done yesterday is negative. CURRENT INPATIENT MEDICATIONS: The patient's medications were all reviewed by me. I stopped her IV D5W. The patient's IV hydrocortisone has been stopped. She has been started on hydrocortisone 15 mg by mouth in the morning and 10 mg in the evening. There is no other change in the medications today as compared with yesterday. 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 Admitted at this time because of adrenal insufficiency along with hyponatremia, hyperkalemia, Clostridium (C.) difficile colitis, and anemia. PLAN: 1. Adrenal insufficiency. The patient was started on stress dose IV hydrocortisone 50 mg every eight hours. Her blood pressure is significantly better and (please clarify) is improved. Hyponatremia also improved. I have stopped the IV hydrocortisone and I have switched her to hydrocortisone 15 mg in the morning, 10 mg in the evening. 2. Hyponatremia. Hyponatremia was secondary to adrenal insufficiency. Sodium rapidly corrected after stress dose hydrocortisone. Sodium level is 138 at this point, which is optimal and within the acceptable range in the last 24 hours. Continue to monitor daily basic metabolic panel (BMP) now. 3. Metabolic acidosis. The patient has non-anion gap metabolic acidosis, most likely secondary to diarrhea. I have started the patient on sodium bicarbonate 325 mg by mouth twice a day. 4. Clostridium (C.) difficile colitis. The patient is currently on oral vancomycin. The frequency of diarrhea is improving. She had four bowel movements. If diarrhea does not improve, then she can be switched to Dificid. 5. Anemia. The patient is being given one unit of packed red blood cells (PRBCs) transfusion today. Fecal occult blood test done yesterday is negative. 6. Paroxysmal atrial fibrillation. The patient is on Lopressor IV as needed. Heart rate is controlled at this time. If the patient goes back to atrial fibrillation again, then consider starting digoxin. 7. 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 The patient is supposed to followup with oncology as outpatient after discharge from the hospital. She has a cavitary lesion in the left lung as well. No antibiotics at this time. Rest of the management as per primary team and CT surgery recommendation.
[2017-10-06] MEDS: PERCOCET 5MG/325MG TAB PO PRN (21:26)
[2017-10-07] VITALS (7 sets, daily range): BP systolic 100–132; BP diastolic 62–96
[2017-10-07] MEDS: IPRATROPIUM 0.5MG/ALBUTEROL 2.5MG INH SOL UD 3ML (DUONEB)(J7620) NEB SCH ×4 (01:11→20:41)
[2017-10-07] MEDS: HEPARIN SOD (PORCINE) 5000 UNITS/ML VIAL SC SCH ×3 (06:05→20:46)
[2017-10-07] MEDS: VANCOMYCIN ORAL SOL 250MG/5ML ORAL SYRINGE PO SCH ×4 (06:05→23:27)
[2017-10-07] MEDS: LEVOTHYROXINE 75MCG TABLET (0.075MG) PO SCH (06:05)
[2017-10-07 06:35] LABS: MEAN CORPUSCULAR HEMOGLOBIN 29.9 pg (27.0-33.0); MEAN CORPUSCULAR HGB CONC 33.1 g/dl (32.0-36.5); MEAN CORPUSCULAR VOLUME 90.3 fl (80.0-96.0); PLATELET COUNT, AUTOMATED 322 10^3/uL (150-450); RED CELL DISTRIBUTION WIDTH 15.6 % (11.5-14.5); WHITE BLOOD COUNT 12.3 10^3/uL (4.0-10.0)
[2017-10-07 06:55] LABS: INR 1.02
[2017-10-07 07:07] LABS: ALBUMIN 1.9 GM/DL (3.2-5.2); ALBUMIN/GLOBULIN RATIO 0.61 (1.00-1.93); ALKALINE PHOSPHATASE 95 U/L (45-117); ALT/SGPT 52 U/L (12-78); ANION GAP 10 MEQ/L (8-16); AST/SGOT 26 U/L (7-37); BILIRUBIN,TOTAL 0.3 MG/DL (0.2-1.0); BLOOD UREA NITROGEN 17 MG/DL (7-18); CALCIUM LEVEL 7.8 MG/DL (8.8-10.2); CARBON DIOXIDE LEVEL 19 MEQ/L (21-32); CHLORIDE LEVEL 116 MEQ/L (98-107); CREATININE FOR GFR 0.67 MG/DL (0.55-1.02); GLOMERULAR FILTRATION RATE > 60.0 (>39); MAGNESIUM LEVEL 1.5 MG/DL (1.8-2.4)
[2017-10-07 07:24] LABS: GLUCOSE, FASTING 111 MG/DL (83-110); SODIUM LEVEL 145 MEQ/L (136-145)
[2017-10-07 07:26] LABS: POTASSIUM SERUM 2.8 MEQ/L (3.5-5.1)
[2017-10-07] MEDS ORDERED: POTASSIUM CHLORIDE 10% LIQ 20 MEQ/15 ML UDC PO ONE ×2 (07:45→16:00)
[2017-10-07] MEDS ORDERED: MAGNESIUM SULFATE 1 GM/100 ML D5W BAG (10MG/ML) (J3475) As Ordered ONE (07:49)
[2017-10-07] MEDS ORDERED: KCL 10MEQ IN STERILE WATER 100ML As Ordered ONE (07:49)
[2017-10-07] MEDS: MEGESTROL SUSP 400 MG/10 ML UDC PO SCH (07:55)
[2017-10-07] MEDS: HYDROCORTISONE 5MG TABLET PO SCH (07:55)
[2017-10-07] MEDS: SODIUM BICARBONATE 325 MG TAB PO SCH ×2 (07:55→20:45)
[2017-10-07] MEDS: MAG SULF 1GM/100ML (MAG RUN) 1 GM in APPROPRIATE DILUENT 1 EA IV SCH ×3 (07:56→10:25)
[2017-10-07] MEDS: KCL 10MEQ IN 100ML SWI (KRUN) 10 MEQ in APPROPRIATE DILUENT 1 EA IV SCH ×12 (07:56→16:17)
[2017-10-07] MEDS: SENOKOT S TAB PO SCH ×2 (08:00→20:45)
[2017-10-07] MEDS: SODIUM CHLORIDE 0.9% INJ 10 ML SYR IV SCH (08:01)
--- NOTE | 2017-10-07 12:38 | IPNPDOC ---
Subjective Date Seen The patient was seen on 10/07/17. Subjective Chief Complaint/HPI Patient seen and examined at the bedside. States that the frequency of her bowel movements, and the consistency of her stool continue to improve. Denies any acute complaints of fevers, chills, abdominal pain, or any nausea/vomiting. Appears to be tolerating a by mouth diet without any complaints. Objective Physical Examination General Exam: Positive: Alert, Cooperative, No Acute Distress ENT Exam: Positive: Atraumatic, Mucous membr. moist/pink Neck Exam: Negative: JVD Chest Exam: Positive: Clear to auscultation, Normal air movement, Other (Chemo port noted on the chest wall) Heart Exam: Positive: Rate Normal, Normal S1, Normal S2 Telemetry: Positive: Atrial fibrillation Abdomen Exam: Positive: Soft, Negative: Tenderness Extremity Exam: Negative: Tenderness, Swelling Psych Exam: Positive: Oriented x 3 Assessment /Plan Plan/VTE VTE Prophylaxis Ordered?: Yes Plan Left Upper Hemithorax Cavitary Lesion 2/2 Hx of Necrotizing PNA CT of the Chest reviewed Pulmonary and Thoracic Surgery input appreciated--There does not appear to be an active infectious source suggestive of underlying empyema. No indication for drainage. AFB testing and sputum studies noted We will with hold any antibiotic therapy at this time The patient is comfortably saturating 97-99% on RA w/o any acute respiratory related symptoms Acute Kidney Injury 2/2 Intravascular Volume Depletion, C. Diff, resolved s/p IVF Hydration No acute structural renal findings on CT abd imaging We will cont to monitor I/O's Renal function back to baseline limits Nephrology on board Hyponatremia, Hyperkalemia likely 2/2 Adrenal Insufficiency IV Hydrocortisone 50mg q8h transitioned to PO C. difficile diarrhea GI panel noted Cont by mouth vancomycin Reports that stool frequency and consistency continue to improve The patient is tolerating a by mouth diet We will continue to monitor her progress Hypokalemia, Hypomagnesemia 2/2 Above Repleted lytes, will recheck levels this afternoon Normocytic Anemia Likely dilutional component, no active or overt source of bleeding noted s/p Transfusion of 2 Units of PRBC's since admission Hgb stable this AM We will cont to monitor Leukocytosis 2/2 Steroid Therapy Hypothyroidism Continue levothyroxine Colon Cancer with Metastasis to the Lungs, Adrenal Gland Bone Scan done here with no evidence of Mets to the Bone CT Chest and CT Abd/Pel noted Patient follows with Dr. León as an outpatient--He has been updated on the patient's clinical condition, findings on 10/05/17--scheduled to f/u with him on 10/16/17 in the office COPD Cont albuterol prn Hx of Paroxysmal Atrial Fibrillation Lopressor 5mg IV prn ordered for HR >110 Not on any AC 2/2 Hx of Bleeding in the past DVT Prophylaxis Heparin SC Prognosis--Poor senior care prognosis. Goals of care were discussed with the patient and her at the bedside. They voiced that they will address goals of care and with their Oncologist, Dr. León after discussing further treatment options. Dispo--pending clinical improvement. Anticipate D/C in 24-48hrs. VS, I&O, 24H, Fishbone Vital Signs/I&O Vital Signs Date Time Temp Pulse Resp B/P (MAP) Pulse Ox O2 Delivery O2 Flow Rate FiO2 10/07/17 08:00 Room Air 10/07/17 08:00 98.2 100 22 100/62 (75) 97 I&O- Last 24 Hours up to 6 AM 10/08/17 06:00 Intake Total 0 ml Output Total 600 ml Balance -600 ml Laboratory Data 24H LABS Laboratory Tests 2 10/07/17 05:57: Nucleated Red Blood Cells % (auto) 0.0, Prothrombin Time 13.5, Prothromb Time International Ratio 1.02, Anion Gap 10, Glomerular Filtration Rate > 60.0, Blood Urea Nitrogen 17, Creatinine 0.67, Sodium Level 145#, Potassium Level 2.8# *L, Chloride Level 116H, Carbon Dioxide Level 19L, Calcium Level 7.8L, Aspartate Amino Transf (AST/SGOT) 26, Alanine Aminotransferase (ALT/SGPT) 52, Alkaline Phosphatase 95, Total Bilirubin 0.3, Total Protein 5.0L, Albumin 1.9L, Magnesium Level 1.5L, Albumin/Globulin Ratio 0.61L CBC/BMP Laboratory Tests 10/06/17 17:11 10/07/17 05:57 Red Blood Count 2.98 L, Mean Corpuscular Volume 90.3, Mean Corpuscular Hemoglobin 29.9, Mean Corpuscular Hemoglobin Concent 33.1, Red Cell Distribution Width 15.6 H, Calcium Level 7.8 L, Aspartate Amino Transf (AST/SGOT ) 26, Alanine Aminotransferase (ALT/SGPT) 52, Alkaline Phosphatase 95, Total Bilirubin 0.3, Total Protein 5.0 L, Albumin 1.9 L Microbiology Microbiology 10/03/17 Blood Culture - Preliminary, Resulted No Growth after 72 hours. All specime... 10/03/17 Blood Culture - Preliminary, Resulted No Growth after 72 hours. All specime... 10/05/17 Stool Occult Blood ([facility]) - Final, Complete 10/03/17 Gastrointestinal Tract Panel (PCR) - Final, Complete Clostridium Difficile A/B 10/03/17 Acid Fast Stain - Final, Resulted 10/03/17 Mycobacterial Culture, Resulted Pending 10/03/17 Respiratory Virus Panel (PCR) ([facility]) - Final, Complete 10/03/17 Gram Stain - Final, Complete 10/03/17 Sputum Culture - Final, Complete Klebsiella Pneumoniae LETY JAVIER MD Oct 07, 2017 12:37
[2017-10-07] MEDS: SODIUM CHLORIDE 0.9% INJ 10 ML SYR IV PRN ×2 (13:00→15:45)
[2017-10-07 15:46] LABS: MAGNESIUM LEVEL 2.3 MG/DL (1.8-2.4); POTASSIUM SERUM 3.3 MEQ/L (3.5-5.1)
[2017-10-07] MEDS: PERCOCET 5MG/325MG TAB PO PRN (17:48)
[2017-10-07] MEDS ORDERED: HYDROCORTISONE 5MG TABLET PO SCH (18:00)
[2017-10-08] MEDS: IPRATROPIUM 0.5MG/ALBUTEROL 2.5MG INH SOL UD 3ML (DUONEB)(J7620) NEB SCH ×3 (01:35→14:08)
[2017-10-08 04:12] VITALS: BP 120/88
[2017-10-08] MEDS: PERCOCET 5MG/325MG TAB PO PRN ×2 (04:42→11:30)
[2017-10-08] MEDS: HEPARIN SOD (PORCINE) 5000 UNITS/ML VIAL SC SCH (05:18)
[2017-10-08] MEDS: LEVOTHYROXINE 75MCG TABLET (0.075MG) PO SCH (05:18)
[2017-10-08] MEDS: VANCOMYCIN ORAL SOL 250MG/5ML ORAL SYRINGE PO SCH ×2 (05:18→11:30)
[2017-10-08 05:43] LABS: MEAN CORPUSCULAR HEMOGLOBIN 29.7 pg (27.0-33.0); MEAN CORPUSCULAR HGB CONC 33.3 g/dl (32.0-36.5); PLATELET COUNT, AUTOMATED 349 10^3/uL (150-450); RED CELL DISTRIBUTION WIDTH 16.1 % (11.5-14.5)
[2017-10-08 05:51] LABS: INR 1.1
[2017-10-08 06:16] LABS: ALBUMIN/GLOBULIN RATIO 0.63 (1.00-1.93); ALKALINE PHOSPHATASE 136 U/L (45-117); ALT/SGPT 188 U/L (12-78); ANION GAP 7 MEQ/L (8-16); AST/SGOT 122 U/L (7-37); BILIRUBIN,TOTAL 0.4 MG/DL (0.2-1.0); BLOOD UREA NITROGEN 12 MG/DL (7-18); CALCIUM LEVEL 7.9 MG/DL (8.8-10.2); CARBON DIOXIDE LEVEL 20 MEQ/L (21-32); CHLORIDE LEVEL 113 MEQ/L (98-107); GLOMERULAR FILTRATION RATE > 60.0 (>39); GLUCOSE, FASTING 88 MG/DL (83-110); MAGNESIUM LEVEL 1.8 MG/DL (1.8-2.4); POTASSIUM SERUM 4.2 MEQ/L (3.5-5.1); SODIUM LEVEL 140 MEQ/L (136-145); TOTAL PROTEIN 5.2 GM/DL (6.4-8.2)
[2017-10-08 08:00] VITALS: BP 130/82
[2017-10-08 09:00] VITALS: BP 130/82
[2017-10-08] MEDS: HYDROCORTISONE 5MG TABLET PO SCH (10:15)
[2017-10-08] MEDS: MEGESTROL SUSP 400 MG/10 ML UDC PO SCH (10:15)
[2017-10-08] MEDS: SENOKOT S TAB PO SCH (10:15)
[2017-10-08] MEDS: SODIUM BICARBONATE 325 MG TAB PO SCH (10:15)
[2017-10-08] MEDS: SODIUM CHLORIDE 0.9% INJ 10 ML SYR IV SCH (10:16)
[2017-10-08 12:00] VITALS: BP 100/68
[2017-10-08] MEDS ORDERED: OXYC1TAB23 PO (12:21)
[2017-10-08] MEDS ORDERED: CORT5TAB2 PO ×2 (12:21)
[2017-10-08] MEDS ORDERED: VANC1CAP7 PO (12:21)
[2017-10-08] MEDS ORDERED: SODI325T9 PO (12:21)
--- NOTE | 2017-10-08 16:52 | DS.PDOC ---
Discharge Summary General Date of Admission Oct 03, 2017 at 13:34 Date of Discharge 10/08/17 Specialist/Consultants Involve Dr. Bhatt of nephrology, Dr. Suarez of thoracic surgery, Dr. Tabares of Pulmonary Discharge Summary PROCEDURES PERFORMED DURING STAY: None. ADMITTING/DISCHARGE DIAGNOSES: Left Upper Hemithorax Cavitary Lesion 2/2 Hx of Necrotizing PNA Acute Kidney Injury 2/2 Intravascular Volume Depletion, C. Diff Hyponatremia, Hyperkalemia likely 2/2 Adrenal Insufficiency C. difficile diarrhea Colon Cancer with Metastasis to the Lungs, Adrenal Gland COMPLICATIONS/CHIEF COMPLAINT: Cavitating Mass In Left Upper Lung Lobe Hyperkalem. HISTORY OF PRESENT ILLNESS: . 72-year-old female patient with underlying medical history of advanced colorectal cancer with metastases to the lung diagnosed in 2008, had resection in 2008 with 12 cycles of chemotherapy with progression in June 2012 to left upper lobe, moderately differentiated adenocarcinoma. There was also concern for metastases to the adrenal gland. Currently receiving Stivarga. Also with history of necrotizing pneumonia in June 2017, chronic diarrhea, hypertension , who presented to the hospital with two weeks of progressively worsening left sided sharp chest pain under the lower rib and radiating up to the left shoulder. The patient denies any acute complaints of fevers, chills, worsening shortness of breath, chest pain, palpitations, sick contacts, nausea, vomiting, or any abdominal pain. The hospitalist service was called for admission for further evaluation and management. In the ER, the patient was found to have an acute kidney injury, hyponatremia, and hyperkalemia. In addition, a CT scan of the chest revealed left apical chronic pneumothorax and/or cavity lesion with small amount of layering fluid and internal debris. During hospitalization, pulmonary and cardiothoracic surgery was consulted regarding the findings of the CT scan. It was determined that the patient's CT findings were not an active infectious source with underlying empyema and did not require any intervention. The patient did not have any respiratory complaints. As for the patient's acute kidney injury, she was provided with IV fluid hydration. Of note, the patient was noted to have a low cortisol level which is consistent with why she would have hyponatremia and hyperkalemia. The patient was started on hydrocortisone, and the patient did have a normalization of her electrolytes with the assistance of nephrology. Also of note, the patient was noted to be positive for C. difficile. She was treated for this with by mouth vancomycin 250 mg every 6 hours, and this resulted in a decrease in stool frequency, and the patient's stools subsequently became formed. I did update the patient's binding machine operator/oncologist, Dr. León about the patient's clinical condition and current findings including a CT scan of the chest, abdomen/pelvis, and a bone scan which did not reveal any acute findings. The patient will follow up with him on 10/16/17. In addition, the patient's liver function tests were noted to be slightly elevated on discharge, which can be attributed to the use of hydrocortisone. At this time, the patient states that she is feeling much better and she is eager to return home. She has been cleared by physical therapy. I advised patient to follow-up with her primary care physician within one week for follow-up lab work. In addition, the patient has been advised to follow-up with her binding machine operator/oncologist as noted above. She has also been advised to continue her antibiotic regimen of vancomycin, and her medical regimen which includes newly added medication of hydrocortisone. She has been consulted to return to the ER for any acute emergencies, or worsening of current symptoms. DISCHARGE MEDICATIONS: Please see below. ALLERGIES: Please see below. PHYSICAL EXAMINATION ON DISCHARGE: VITAL SIGNS: Please see below. General Exam: Positive: Alert, Cooperative, No Acute Distress ENT Exam: Positive: Atraumatic, Mucous membr. moist/pink Neck Exam: Negative: JVD Chest Exam: Positive: Clear to auscultation, Normal air movement, Other (Chemo port noted on the chest wall) Heart Exam: Positive: Rate Normal, Normal S1, Normal S2 Telemetry: Positive: Atrial fibrillation Abdomen Exam: Positive: Soft, Negative: Tenderness Extremity Exam: Negative: Tenderness, Swelling Psych Exam: Positive: Oriented x 3 LABORATORY DATA: Please see below. IMAGING: Clinical: History of metastatic colon cancer. Findings: Evaluation demonstrates diffuse osteopenia and osteoarthritic degenerative changes throughout the visualized skeletal structures. No osseous sclerotic, lytic or blastic lesions are identified to suggest skeletal metastases by radiographic evaluation. Large known complex cavitary lesion in the left upper lung zone is again identified and stable. Multiple noncalcified pulmonary nodules measure up to approximately 2 cm and consistent with metastatic disease. Bowel gas pattern is nonspecific and contrast material from recent CT evaluation is identified through the small and large bowel. Impression: Skeletal structures demonstrate osteopenia and advanced osteoarthritic degenerative changes. No evidence for skeletal metastases by current radiographic evaluation. Clinical: Cavitary lesion. Technique: PA and lateral. Comparison: 07/12/2017. Findings: Ill-defined opacity involving the left upper lung zone/apex with suspected cavitary component and air-fluid levels appears more prominent than prior examination. Associated ipsilateral volume loss and hilar retraction towards the left upper lobe lesion is again appreciated. The 2 cm density in the right lower lung zone is identified along with scattered underlying chronic interstitial changes as well as smaller right upper lobe pulmonary nodules which measure up to 14 mm and suspicious for metastatic disease. No effusion. No pneumothorax. [id number] with tip in the SVC. No cardiomegaly. Skeletal structures intact. Impression: 1. Left upper lobe irregular cavitary lesion with ipsilateral volume loss and retraction of the mediastinum appears somewhat more prominent than prior examination. 2. Scattered right-sided pulmonary nodules and mass lesion up to 2 cm. CLINICAL HISTORY: Abdominal pain. TECHNIQUE: Multiple axial, sagittal and coronal CT images were obtained through the abdomen and pelvis without administration of IV contrast material. Patient ingested oral contrast. COMMENTS: Comparison to prior exam performed on 07/10/2017. Unchanged 4.5 cm calcified left adrenal mass. Unchanged 5.7 cm calcified left adrenal mass. Unchanged 3 mm left renal nonobstructing stone. Complete resolution of left pleural effusion. Urinary catheter balloon is in good position. Uncomplicated diverticulosis, unchanged. The liver is of uniform attenuation without mass or defect. There is no intra or extrahepatic biliary ductal dilatation. The spleen is normal. The gallbladder is within normal limits. The pancreas is of normal contour and attenuation characteristics. The kidneys are normal in size, shape and configuration. No renal or ureteral calculi are identified. There is no hydroureter or hydronephrosis. There is no evidence for appendicitis. There is no bowel wall thickening. No evidence for small or large bowel obstruction. There is no evidence of abdominal ascites or lymphadenopathy. There is no evidence of intrinsic or extrinsic bladder mass. There is no pelvic ascites or lymphadenopathy. Images of the lung bases show no evidence of pleural or parenchymal mass. There are no pleural effusions. The bony structures are free of lytic or blastic lesions. Multilevel degenerative changes are seen involving the thoracolumbar spine. Scattered calcifications are seen involving the aorta and major branches compatible with atherosclerosis. IMPRESSION: Comparison to prior exam performed on 07/10/2017. Unchanged 4.5 cm calcified left adrenal mass. Unchanged 5.7 cm calcified left adrenal mass. Unchanged 3 mm left renal nonobstructing stone. Complete resolution of left pleural effusion. Urinary catheter balloon is in good position. Uncomplicated diverticulosis, unchanged. ULTRASOUND ABDOMEN: Real-time sonographic evaluation of the abdomen performed. The gallbladder is moderately distended. No gallstones are seen and there is no gallbladder wall thickening. There is no free fluid in the abdomen. No intrahepatic or extrahepatic biliary dilatation is seen, the common bile duct measuring 4 mm in diameter. The liver and pancreas demonstrate no gross mass, pancreas not optimally seen due to overlying bowel gas. The spleen is normal in size with no intrinsic abnormality. Length is 9.8 cm. Right kidney is somewhat atrophic. Right kidney measures 8.8 x 4.7 x 4.1 cm, left kidney 9.6 x 4.5 x 5.1 cm. There is no hydronephrosis, renal mass or nephrolithiasis. Abdominal aorta is normal in caliber with no aneurysm, maximum AP diameter proximally 2.6 cm, mid aspect 2.1 cm and distally 1.4 cm. IMPRESSION: No acute abnormalities as discussed in detail above. Clinical: Left lower chest pain. Comparison: 07/07/2017. Findings: Acute finding includes cavitary lesion and/or chronic focal pneumothorax at the left apex is appreciated with irregular pleural thickening and irregular internal debris versus chronically scarred left apical pulmonary parenchymal along with associated small fluid level (images 13 - 40). Irregular left upper lobe pleural thickening and elements of chronic-appearing consolidation are also identified. Bilateral COPD and emphysematous changes along with scattered bronchiectasis are chronic in appearance and similar to prior examination. Multiple scattered pulmonary nodules and mass lesions are appreciated - the largest of which is noted in the subpleural posterior right lower lobe and measures 2 cm maximal diameter which remain relatively similar to prior examination. Atherosclerotic changes to the thoracic aorta and coronary arteries remains relatively stable. No evidence for cardiomegaly or significant pericardial effusion. Subtle reactive adenopathy cannot be excluded and is incompletely evaluated due to lack of enhancement. Large partially calcified bilateral adrenal mass lesions are unchanged. Surrounding musculoskeletal structures demonstrate degenerative changes without focal osseous abnormality. Impression: 1. New acute finding includes left apical chronic pneumothorax and/or cavitary lesion with small amount of layering fluid and internal debris. 2. Diffuse chronic changes throughout the bilateral lung sam as well as scattered pulmonary nodules and mass lesions measuring up to 2 cm which remain relatively stable compared to 07/07/2017. PROGNOSIS: Poor long-term prognosis ACTIVITY: As tolerated. DIET: . 2 g low sodium diet DISCHARGE PLAN: Home DISPOSITION: 01 Home, Self-Care. DISCHARGE INSTRUCTIONS: She has been cleared by physical therapy. I advised the patient to follow-up with her primary care physician within one week for follow-up lab work of LFTs. In addition, the patient has been advised to follow-up with her binding machine operator/ oncologist as noted above. She has also been advised to continue her antibiotic regimen of vancomycin, and her medical regimen which includes newly added medication of hydrocortisone. She has been consulted to return to the ER for any acute emergencies, or worsening of current symptoms. DISCHARGE CONDITION: Stable. TIME SPENT ON DISCHARGE: Greater than 30 minutes. Vital Signs/I&Os Vital Signs Date Time Temp Pulse Resp B/P (MAP) Pulse Ox O2 Delivery O2 Flow Rate FiO2 10/08/17 12:00 16 96 10/08/17 12:00 96.7 97 100/68 (79) Room Air I&O- Last 24 Hours up to 6 AM 10/09/17 06:00 Intake Total 720 ml Output Total 100 ml Balance 620 ml Laboratory Data Labs 24H Laboratory Tests 2 10/08/17 05:22: Nucleated Red Blood Cells % (auto) 0.0, Prothrombin Time 14.3, Prothromb Time International Ratio 1.10, Anion Gap 7L, Glomerular Filtration Rate > 60.0, Blood Urea Nitrogen 12, Creatinine 0.60, Sodium Level 140, Potassium Level 4.2# , Chloride Level 113H, Carbon Dioxide Level 20L, Calcium Level 7.9L, Aspartate Amino Transf (AST/SGOT) 122H, Alanine Aminotransferase (ALT/SGPT) 188H, Alkaline Phosphatase 136H, Total Bilirubin 0.4, Total Protein 5.2L, Albumin 2.0L , Magnesium Level 1.8, Albumin/Globulin Ratio 0.63L CBC/BMP Laboratory Tests 10/08/17 05:22 Red Blood Count 3.27 L, Mean Corpuscular Volume 89.0, Mean Corpuscular Hemoglobin 29.7, Mean Corpuscular Hemoglobin Concent 33.3, Red Cell Distribution Width 16.1 H, Calcium Level 7.9 L, Aspartate Amino Transf (AST/SGOT ) 122 H, Alanine Aminotransferase (ALT/SGPT) 188 H, Alkaline Phosphatase 136 H, Total Bilirubin 0.4, Total Protein 5.2 L, Albumin 2.0 L Microbiology Microbiology 10/03/17 Blood Culture - Final, Complete NO GROWTH AFTER 5 DAYS 10/03/17 Blood Culture - Final, Complete NO GROWTH AFTER 5 DAYS 10/05/17 Stool Occult Blood ([facility]) - Final, Complete 10/03/17 Gastrointestinal Tract Panel (PCR) - Final, Complete Clostridium Difficile A/B 10/03/17 Acid Fast Stain - Final, Resulted 10/03/17 Mycobacterial Culture, Resulted Pending 10/03/17 Respiratory Virus Panel (PCR) ([facility]) - Final, Complete 10/03/17 Gram Stain - Final, Complete 10/03/17 Sputum Culture - Final, Complete Klebsiella Pneumoniae Discharge Medications Scheduled Hydrocortisone Base (Cortef) 5 Mg Tab, 15 MG PO DAILY@0800 Hydrocortisone Base (Cortef) 5 Mg Tab, 5 MG PO DAILY@1800 Megestrol Acetate (Megestrol Acetate) 400 Mg/10 Ml Margret, 400 MG PO DAILY, ( Reported) Sodium Bicarbonate (Sodium Bicarbonate) 325 Mg Tab, 325 MG PO BID Vancomycin HCl (Vancocin HCl) 250 Mg Cap, 250 MG PO Q6H Scheduled PRN Acetaminophen (Tylenol Extra Strength) 500 Mg Tab, 1,000 MG PO QID PRN for PAIN, (Reported) Levalbuterol Tartrate (Xopenex Hfa) 45 Mcg/Act Aer, 2 PUFF INH QID PRN for SHORTNESS OF BREATH, (Reported) Oxycodone/Acetaminophen (Oxycodone/Acetaminophen 5-325 mg) 1 Tab Tab, 1 TAB PO Q6HP PRN for PAIN Allergies Coded Allergies: No Known Allergies (Verified , 03/05/06) LETY JAVIER MD Oct 08, 2017 16:52
--- NOTE | 2017-10-08 20:32 | IPN ---
DATE: 10/08/2017 SUBJECTIVE: The patient was seen and examined at the bedside today morning. The patient is hemodynamically stable. She reports that her diarrhea is significantly better. She is having formed stools right now. Her electrolytes are also better today as compared with yesterday. REVIEW OF SYSTEMS: The patient denies any fever, chills, rigors, chest pain, shortness of breath, pain in abdomen. She reports her diarrhea is getting better. She denies any dysuria, hematuria. The rest of review of systems is negative. OBJECTIVE: Vital signs: Temperature is 96.7 degrees Fahrenheit. Blood pressure is 100.68, pulse is 97, respiratory rate of 18, saturating 96% on room air. Intake and output: Urine output is not recorded well. Weight on the bed scale is 55.5 kg. Head and neck examination: Extraocular muscles intact. Pupils equally round and reactive to light. Mucous membranes are moist. Neck is supple. There is no jugular venous distention (JVD). Cardiovascular: S1, S2. Regular rate. No murmur, rub or gallops. Respiratory: Chest is clear to auscultation bilaterally. Bilateral equal air entry. No rales or rhonchi. Abdomen: Soft, old surgical scars visible. No organomegaly. No ascites. Musculoskeletal: No clubbing, cyanosis. No edema of the extremities. Pulses are 2+. Central nervous system: No focal neurological deficit. Power is 5/5 in all extremities. LAB REVIEW: CBC showed WBC of 12, hemoglobin 9.7, platelets of 349. BMP showed sodium 140, potassium 4.2, chloride 113, bicarbonate is 20, BUN 12, creatinine is 0.60. Calcium 7.9. Albumin is 2. CURRENT INPATIENT MEDICATIONS: The patient's medications are all reviewed by me. She is currently on hydrocortisone 15 mg in the morning, 5 mg in the evening. There is no other change in the medications today as compared with yesterday. ASSESSMENT: 72-year-old female with colorectal cancer, history of colectomy in the past. 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 difficile colitis and anemia. PLAN: 1. Adrenal insufficiency. The patient's hydrocortisone dose was adjusted yesterday. She is currently on hydrocortisone 15 mg in the morning and 10 mg in the evening. Continue current dose. 2. Hypokalemia. Hypokalemia has improved. Hydrocortisone dose has been decreased and patient was given IV and oral potassium. Potassium level is within the acceptable limits at this time. 3. Metabolic acidosis. Bicarbonate level is improving. Continue current dose of sodium bicarbonate 325 mg by mouth twice a day. 4. C. difficile colitis. The patient's diarrhea is improving. Continue current dose of oral vancomycin. DISPOSITION: It is okay to discharge the patient from nephrology standpoint. She needs to followup as outpatient after discharge from the hospital.
== END 2017-10-08 15:10 | disposition home or self-care (01) | DRG 371 ==
LOC: M ED 08:51 → M ED INP 13:34 → M ICU 18:11 → M PCU 10-04 18:29
PROVIDERS: ADMIT Hospitalist; ATTEND Internal Medicine
PROC: 30233N1 Transfusion of Nonautologous Red Blood Cells into Peripheral Vein, Percutaneous Approach (ICD-10-PCS; principal; 2017-10-05)
DX: A04.72 Enterocolitis due to Clostridium difficile, not specified as recurrent (principal); J18.9 Pneumonia, unspecified organism; E87.1 Hypo-osmolality and hyponatremia; N17.9 Acute kidney failure, unspecified; E87.2 Acidosis; E27.40 Unspecified adrenocortical insufficiency; C78.00 Secondary malignant neoplasm of unspecified lung; C79.70 Secondary malignant neoplasm of unspecified adrenal gland; C18.9 Malignant neoplasm of colon, unspecified; I48.0 Paroxysmal atrial fibrillation; R62.7 Adult failure to thrive; J44.9 Chronic obstructive pulmonary disease, unspecified; E03.9 Hypothyroidism, unspecified; I10 Essential (primary) hypertension; E87.5 Hyperkalemia; Z92.21 Personal history of antineoplastic chemotherapy; Z98.51 Tubal ligation status; Z96.642 Presence of left artificial hip joint; Z90.2 Acquired absence of lung [part of]; Z90.49 Acquired absence of other specified parts of digestive tract; Z87.891 Personal history of nicotine dependence; Z88.8 Allergy status to other drugs, medicaments and biological substances

== ENCOUNTER → 2017-10-19 | Outpatient (REF) | payer MEDICARE ==
[~2017-10-19] MED LIST changes: +CORT5TAB2 PO; +LEVAINH INH; +MEGE400SUS PO; +OXYC1TAB23 PO; +SODI325T9 PO; +TYLE500T78 PO; +VANC1CAP7 PO
[2017-10-19 18:37] LABS: FREE T4 1.1 NG/DL (0.76-1.46)
== END ==
LOC: M LAB REF 17:29
PROVIDERS: ATTEND Internal Medicine Nephrology
DX: E87.1 Hypo-osmolality and hyponatremia (principal); E03.9 Hypothyroidism, unspecified

== ENCOUNTER → 2017-11-26 | Outpatient (REF) | payer MEDICARE ==
[2017-11-26 14:40] LABS: FREE T4 1.21 NG/DL (0.76-1.46)
== END ==
LOC: M LAB REF 13:53
DX: E03.9 Hypothyroidism, unspecified (principal)
CPT/HCPCS: 84443

== ENCOUNTER 2017-12-15 06:26 | Inpatient (IN) | payer MEDICARE ==
[~2017-12-15 06:26] MED LIST changes: -ALBU17IN2 INH; -ALEV220T26 PO; -AMLO5TAB2 PO; -AUGM875T28 PO; -AVEL1TAB3 PO; -CALCCHW12 OR; -CORT5TAB2 PO; -COZA50TA PO; -IMOD2TAB16 PO; -Imodium PO; -LASI40TA; -LEVAINH INH; +LEVOTHYROXINE 37.5MCG PER 1/2TAB (0.0375MG) PO; -LISI20TA5; -LOMO2.5T PO; -LOSA50TA20 PO; -MEGA40SU PO; -MEGE400SUS PO; -METO1TAB32 PO; -NORV5TAB PO; -OXYC1TAB23 PO; -PRED20TAB PO; -PROAAER10 IN; -PROAAER10 INH; -REGORAFENIB PO; -SODI325T9 PO; -STIV40TA PO; -TYLE325C PO; -TYLE325T5 PO; -TYLE500T78 PO; -TYLE650T30 PO; -TYLENOL OTC; -VANC1CAP7 PO; -VICO5TAB; -[UNRECOGNIZED DRUG - REMARK] INH; -advair diskus INH; -immodium PO; -robitussin ac PO
[2017-12-15] MEDS: ONDANSETRON 4MG/2ML VIAL (J2405) IV (07:45)
[2017-12-15] MEDS: METOPROLOL 5 MG/5 ML VIAL IV (07:45)
[2017-12-15] MEDS: NS 500 ML IV ×2 (07:46→09:00)
[2017-12-15] MEDS: fentaNYL 100 MCG/2 ML INJECTION (J3010) IV ×4 (07:46→09:55)
[2017-12-15 07:52] LABS: BASO % 0.2 % (0.0-1.0); EOS # 0.1 10^3/uL (0.0-0.50); EOS % 0.3 % (0.0-3.0); HEMATOCRIT 34.3 % (36.0-47.0); HEMOGLOBIN 10.9 g/dl (12.0-16.0); IMMATURE GRANULOCYTE # 0.1 10^3/uL (0-0); IMMATURE GRANULOCYTE % 0.6 % (0-0); LYMPH # 0.8 10^3/uL (1.5-4.5); LYMPH % 4.4 % (24.0-44.0); MEAN CORPUSCULAR HEMOGLOBIN 29.2 pg (27.0-33.0); MEAN CORPUSCULAR HGB CONC 31.8 g/dl (32.0-36.5); MONO # 1.2 10^3/uL (0.0-0.8); MONO % 6.3 % (0.0-5.0); NEUTROPHILS # 16.7 10^3/uL (1.8-7.7); NEUTROPHILS % 88.2 % (36.0-66.0); PLATELET COUNT, AUTOMATED 581 10^3/uL (150-450); RED BLOOD COUNT 3.73 10^6/uL (4.00-5.40); RED CELL DISTRIBUTION WIDTH 15.6 % (11.5-14.5); WHITE BLOOD COUNT 18.9 10^3/uL (4.0-10.0)
[2017-12-15 08:05] LABS: PROTHROMBIN TIME 15.4 SECONDS (12.4-14.5)
[2017-12-15 08:20] LABS: ALBUMIN 2.2 GM/DL (3.2-5.2); ALBUMIN/GLOBULIN RATIO 0.39 (1.00-1.93); ALKALINE PHOSPHATASE 183 U/L (45-117); ALT/SGPT 16 U/L (12-78); ANION GAP 12 MEQ/L (8-16); AST/SGOT 18 U/L (7-37); BILIRUBIN,DIRECT 0.3 MG/DL (0.0-0.2); BILIRUBIN,TOTAL 0.9 MG/DL (0.2-1.0); BLOOD UREA NITROGEN 27 MG/DL (7-18); CALCIUM LEVEL 9.5 MG/DL (8.8-10.2); CARBON DIOXIDE LEVEL 27 MEQ/L (21-32); CHLORIDE LEVEL 97 MEQ/L (98-107); CREATININE FOR GFR 0.91 MG/DL (0.55-1.02); GLOMERULAR FILTRATION RATE > 60.0 (>39); GLUCOSE, FASTING 91 MG/DL (70-100); LIPASE 42 U/L (73-393); POTASSIUM SERUM 3.6 MEQ/L (3.5-5.1); SODIUM LEVEL 136 MEQ/L (136-145); TOTAL PROTEIN 7.9 GM/DL (6.4-8.2)
[2017-12-15 08:31] LABS: LACTIC ACID SEPSIS PROTOCOL 3.2 MMOL/L (0.4-2.0)
[2017-12-15 08:44] LABS: PARTIAL THROMBOPLASTIN TIME 43.7 SECONDS (26.8-37.9)
[2017-12-15] MEDS ORDERED: ISOVUE-370 76% 100ML VIAL (Q9967) As Ordered (08:45)
[2017-12-15] MEDS: SODIUM BICARBONATE 325 MG TAB PO ×2 (09:00→20:43)
[2017-12-15] MEDS: MORPHINE 2 MG/ML 1ML SYRINGE IV ×2 (11:15→13:40)
[2017-12-15] MEDS ORDERED: ONDANSETRON 4MG/2ML VIAL (J2405) IV (11:45)
[2017-12-15] MEDS: NS 1,000 ML IV ×2 (12:27→23:36)
[2017-12-15] MEDS: ENOXAPARIN 40 MG/0.4 ML SYRINGE (J1650) SC (12:27)
[2017-12-15] MEDS ORDERED: ACETAMINOPHEN 500 MG TAB PO (12:30)
[2017-12-15] MEDS ORDERED: PERCOCET 5MG/325MG TAB PO ×2 (12:30)
[2017-12-15] MEDS: methylPREDNISolone INJ 125 MG/2 ML VIAL (J2930) IV ×3 (12:41→23:29)
[2017-12-15 13:19] LABS: LACTIC ACID SEPSIS PROTOCOL 1.8 MMOL/L (0.4-2.0)
[2017-12-15 13:29] LABS: TROPONIN I < 0.02 NG/ML (< 0.10)
[2017-12-15 13:29] LABS: MAGNESIUM LEVEL 1.8 MG/DL (1.8-2.4)
[2017-12-15] MEDS: VANCOMYCIN HCL 1,000 MG, VIAL MATE ADAPTER 1 EACH in D5W 250 ML IV (13:41)
[2017-12-15] MEDS: METOPROLOL TART 25 MG TABLET PO ×2 (13:41→13:49)
[2017-12-15] MEDS ORDERED: MEROPENEM INJ 1 GM in APPROPRIATE DILUENT 1 EA IV (14:00)
[2017-12-15] MEDS: MAG SULF 1GM/100ML (MAG RUN) 1 GM in APPROPRIATE DILUENT 1 EA IV (18:05)
[2017-12-15] MEDS: POTASSIUM CHLORIDE 10 MEQ SR TABLET PO (18:05)
[2017-12-15 18:33] LABS: TROPONIN I < 0.02 NG/ML (< 0.10)
[2017-12-15] MEDS: METOPROLOL TART 12.5 MG PER 1/2 TAB PO ×2 (19:07→21:22)
[2017-12-15] MEDS: MEGESTROL SUSP 400 MG/10 ML UDC PO (19:07)
[2017-12-15] MEDS: MEROPENEM INJ 1 GM in APPROPRIATE DILUENT 1 EA IV (19:10)
[2017-12-15] MEDS: oxyCODONE 15 MG CR TAB PO (20:44)
[2017-12-15 23:43] LABS: TROPONIN I < 0.02 NG/ML (< 0.10)
[2017-12-16] MEDS: VANCOMYCIN HCL 1,000 MG, VIAL MATE ADAPTER 1 EACH in D5W 250 ML IV (02:07)
[2017-12-16] MEDS: MEROPENEM INJ 1 GM in APPROPRIATE DILUENT 1 EA IV (03:39)
[2017-12-16 05:08] LABS: HEMATOCRIT 27.9 % (36.0-47.0); MEAN CORPUSCULAR HEMOGLOBIN 29.2 pg (27.0-33.0); MEAN CORPUSCULAR HGB CONC 32.3 g/dl (32.0-36.5); MEAN CORPUSCULAR VOLUME 90.6 fl (80.0-96.0); PLATELET COUNT, AUTOMATED 542 10^3/uL (150-450); RED BLOOD COUNT 3.08 10^6/uL (4.00-5.40); RED CELL DISTRIBUTION WIDTH 15.4 % (11.5-14.5)
[2017-12-16 05:33] LABS: ANION GAP 7 MEQ/L (8-16); BLOOD UREA NITROGEN 24 MG/DL (7-18); CALCIUM LEVEL 8.5 MG/DL (8.8-10.2); CARBON DIOXIDE LEVEL 29 MEQ/L (21-32); CHLORIDE LEVEL 98 MEQ/L (98-107); CREATININE FOR GFR 0.82 MG/DL (0.55-1.02); GLOMERULAR FILTRATION RATE > 60.0 (>39); GLUCOSE, FASTING 165 MG/DL (70-100); POTASSIUM SERUM 4.1 MEQ/L (3.5-5.1); SODIUM LEVEL 134 MEQ/L (136-145)
[2017-12-16] MEDS: LEVOTHYROXINE 50MCG TABLET (0.05MG) PO (05:48)
[2017-12-16] MEDS: methylPREDNISolone INJ 125 MG/2 ML VIAL (J2930) IV (05:49)
[2017-12-16] MEDS: METOPROLOL TART 12.5 MG PER 1/2 TAB PO (05:49)
[2017-12-16] MEDS: MEGESTROL SUSP 400 MG/10 ML UDC PO (08:55)
[2017-12-16] MEDS: ENOXAPARIN 40 MG/0.4 ML SYRINGE (J1650) SC (08:56)
[2017-12-16] MEDS: oxyCODONE 15 MG CR TAB PO ×2 (08:56→20:35)
[2017-12-16] MEDS ORDERED: SCOPOLAMINE 1MG TRANSDERMAL PATCH TOP (09:15)
[2017-12-16] MEDS ORDERED: LORazepam 1 MG TAB PO (09:15)
[2017-12-16] MEDS ORDERED: ONDANSETRON 4 MG ORAL DISINTEGRATING TAB (S0181) PO (09:15)
[2017-12-16] MEDS: IPRATROPIUM 0.5MG/ALBUTEROL 2.5MG INH SOL UD 3ML (DUONEB)(J7620) NEB (12:05)
[2017-12-16] MEDS: HYDROCORTISONE 5MG TABLET PO ×2 (13:25→20:23)
[2017-12-17] MEDS: MEGESTROL SUSP 400 MG/10 ML UDC PO (08:05)
[2017-12-17] MEDS: HYDROCORTISONE 5MG TABLET PO ×2 (08:05→21:07)
[2017-12-17] MEDS: oxyCODONE 15 MG CR TAB PO ×2 (08:06→21:08)
[2017-12-17] MEDS: MORPHINE 10MG/0.5ML ORAL CONCENTRATE SOLUTION U/D SL (19:01)
[2017-12-18] MEDS: MEGESTROL SUSP 400 MG/10 ML UDC PO (08:19)
[2017-12-18] MEDS: oxyCODONE 15 MG CR TAB PO (08:20)
[2017-12-18] MEDS: HYDROCORTISONE 5MG TABLET PO (08:20)
== END 2017-12-18 11:05 | disposition hospice, home (50) | DRG 948 ==
LOC: M MS4PR 12-16 11:43 → M ED 06:26 → M ED INP 11:40 → M PCU 22:52
DX: G89.3 Neoplasm related pain (acute) (chronic) (principal); C78.01 Secondary malignant neoplasm of right lung; C79.89 Secondary malignant neoplasm of other specified sites; C78.7 Secondary malignant neoplasm of liver and intrahepatic bile duct; E46 Unspecified protein-calorie malnutrition; E27.40 Unspecified adrenocortical insufficiency; C78.02 Secondary malignant neoplasm of left lung; C18.9 Malignant neoplasm of colon, unspecified; I48.91 Unspecified atrial fibrillation; J44.9 Chronic obstructive pulmonary disease, unspecified; I10 Essential (primary) hypertension; I27.20 Pulmonary hypertension, unspecified; E03.9 Hypothyroidism, unspecified; Z51.5 Encounter for palliative care; Z79.899 Other long term (current) drug therapy; Z88.8 Allergy status to other drugs, medicaments and biological substances; I49.3 Ventricular premature depolarization